=== PATIENT | male | born 1985 ===

== ENCOUNTER 2021-03-12 21:44 | Inpatient (IN) | payer OTHER, SELFPAY ==
--- NOTE | ~2021-03-12 | XR_ITS ---
EXAMINATION: XR PORTABLE CHEST CLINICAL INFORMATION: Cough. COMPARISON: None. TECHNIQUE: AP portable upright view of the chest FINDINGS: Lungs are clear. No consolidation, pneumothorax, or pleural effusion. Cardiac and mediastinal contours are normal. Pulmonary vasculature is unremarkable. Osseous structures are unremarkable. XR/XR chest 1V IMPRESSION: No acute cardiopulmonary findings
--- NOTE | ~2021-03-12 | US_ITS ---
EXAMINATION: US VENOUS ULTRASOUND WITH DOPPLER LOWER EXTREMITY, RIGHT CLINICAL INFORMATION: Right leg pain COMPARISON: None TECHNIQUE: Ultrasound of the deep veins is performed from the hip to the calf with compression sonography and color and pulse Doppler assessment. Spectral analysis with color-flow imaging is performed. FINDINGS: There is normal venous compression and respiratory variation and augmented flow. The visualized common femoral vein, superficial femoral vein, profunda femoral vein, popliteal vein, and the trifurcation region shows no evidence of deep venous thrombosis. There is no significant popliteal fossa cyst. US/US venous duplex LE RT IMPRESSION: No DVT demonstrated in the right lower extremity.
[2021-03-12 21:50] VITALS: BP 135/95; PULSE 130; RESP 22; TEMP 36.1; O2SAT 99; BMI 36.3
--- NOTE | 2021-03-12 22:28 | ECG_ITS ---
Test Reason : TACHY Blood Pressure : / mmHG Vent. Rate : 124 BPM Atrial Rate : 124 BPM P-R Int : 132 ms QRS Dur : 078 ms QT Int : 318 ms P-R-T Axes : 030 047 029 degrees QTc Int : 456 ms Sinus tachycardia Septal infarct , age undetermined Nonspecific ST and T wave abnormality Abnormal ECG When compared with ECG of 06-MAY-2009 16:47, Sinus rhythm has replaced Atrial fibrillation Septal infarct is now Present Nonspecific T wave abnormality now evident in Inferior leads Referred By: Mee Ramirez Electronically Signed By:SOPHY SEPULVEDA MD
[2021-03-12 22:42] LABS: Glucose, Whole Blood 392 mg/dL (60-115)
[2021-03-12] MEDS: Ketorolac Tromethamine 15 MG/ML VIAL IVPUSH (22:50)
[2021-03-12] MEDS: 0.9 % Sodium Chloride 2,000 ML 999 ML IV (22:50)
[2021-03-12] MEDS: Acetaminophen 325 MG TABLET 975 MG PO (22:50)
[2021-03-12] MEDS: ondansetron HCL 4 MG/2 ML VIAL IVPUSH (22:50)
[2021-03-12 22:54] LABS: MANUAL DIFF FLAG NO
--- NOTE | 2021-03-12 22:57 | ED_ITS ---
HPI - General Adult General Chief complaint: Extremity Problem Stated complaint: leg pain Time Seen by Provider: 03/12/21 22:28 Source: patient Mode of arrival: EMS History of Present Illness HPI narrative: 35-year-old male with history of diabetes and bipolar presents via EMS with severe right lower extremity leg cramping that started Tuesday evening, but patient also reports nausea with decreased appetite over the past couple of days but denies any diarrhea, fever, chills, sore throat, cough, abdominal pain. In addition, patient has complaints of polydipsia and polyuria, but denies any falls precipitating his right lower extremity leg pain. Related Data Allergies Allergy/AdvReac Type Severity Reaction Status Date / Time No Known Allergies Allergy Unverified 09/23/20 09:17 [No Known Allergies*] Review of Systems Review of Systems: pertinent positives and negatives as stated in HPI 10 point review of systems is otherwise negative. [facility] Past Medical History Medical History (Updated 03/13/21 @ 00:54 by Mee Ramirez MD) Bipolar 2 disorder Diabetes Social History Social History Advance Directives: No Physical Exam Vital Signs: Vital Signs: Last Vital Signs Temp 97 F 03/12/21 21:50 Pulse 130 H 03/12/21 21:50 Resp 22 H 03/12/21 21:50 BP 135/95 H 03/12/21 21:50 Pulse Ox 99 03/12/21 21:50 Body Mass Index 36.3 VITAL SIGNS: Reviewed. GENERAL: noted fruity breath,Well developed, well nourished, in no acute distress. HEAD: Normocephalic/atraumatic EYES: PERRLA, EOMI NOSE: Nares patent bilateral OROPHARYNX: no oral lesions noted, posterior pharynx clear, dry mucosa NECK: Supple, no adenopathy LUNGS: Normal breath sounds, tachypnea but able to complete full sentences. SpO2<99> CARDIOVASCULAR: Regular rate and rhythm without noted murmurs ABDOMEN: Soft, non-tender, non-distended with bowel sounds. RIGHT LOWER EXTREMITY: No observed deformities, on palpation of calf no noted cords, erythema, induration SKIN: Inspection of the skin reveals no rashes, ulcerations, jaundice, pallor, or petechiae. NEUROLOGIC: Alert and oriented x 4. Strength and sensation to light touch were grossly intact x 4. Course Course Course Narrative: 35-year-old male with history and clinical presentation most concerning for possible DKA/HHS and low suspicion for thrombophlebitis or DVT, but there is a possibility of possible Richardson cyst rupture given patient's presentation. On review of all investigations findings are consistent with significant DKA and patient was started on fluid hydration, insulin drip, and on re-evaluation has noted improvement in right lower extremity discomfort and states that after initial interventions have been started that this is the best that his leg has felt in 3 days . Although there is a noted leukocytosis this is felt to be hemoconcentration as there is no information provided in the history to suggest pulmonary/abdominal / urinary etiologies. Patient remains otherwise hemodynamically stable and this case was discussed with the object oriented developer who is accepting the patient for admission. Medical Decision Making Lab Data Result diagrams: 03/12/21 22:47 03/12/21 22:47 Labs: Lab Results 03/12/21 03/12/21 03/12/21 Range/Units 22:32 22:46 22:46 WBC (4.8-10.8) X10*3/uL RBC (4.60-5.80) X10*6/uL Hgb (14.0-18.0) g/dl Hct (42-52) % MCV (80-98) fL MCH (27.0-33.0) pg MCHC (31.0-36.0) g/dl RDW (11.0-16.0) % Plt Count (160-400) X10*3/uL MPV (9.4-12.4) fL Immature Gran % (Auto) (0.0-0.4) % Neut % (Auto) (45-73) % Lymph % (Auto) (20-40) % [place] % (Auto) (2-11) % Eos % (Auto) (0-4) % Baso % (Auto) (0-2) % Lymph # (Auto) (1.2-4.9) X10*3/uL [place] # (Auto) (0.1-1.2) X10*3/uL Eos # (Auto) (0.0-0.4) X10*3/uL Baso # (Auto) (0.0-0.2) X10*3/uL Abs Immat Gran (auto) (0.00-0.03) X10*3/uL Absolute Neuts (auto) (2.0-8.3) X10*3/uL Absolute Nucleated RBC (0.0-0.012) X10*3/uL Nucleated RBC % (auto) (0.0-0.2) /100WBC Sodium (135-145) mmol/L Potassium (3.3-5.1) mmol/L Chloride (96-108) mmol/L Carbon Dioxide (22-29) mmol/L Anion Gap (12-20) BUN (9-16) mg/dL Creatinine (0.5-1.4) mg/dL Estim Creat Clear Calc Estimated GFR POC Glucose 392 H* (60-115) mg/dL Random Glucose (60-115) mg/dL Lactic Acid 2.5 H* (0.5-2.0) mmol/L Calcium (8.4-10.2) mg/dL Magnesium (1.6-2.6) mg/dL Total Bilirubin (0.0-1.0) mg/dL AST (5-37) U/L ALT (0-40) U/L Alkaline Phosphatase (39-117) U/L Troponin I High Sens 6.1 (<3.5-35.0) ng/L Total Protein (6.5-8.0) g/dL Albumin (3.5-5.0) g/dL Lipase (8-78) U/L COVID-19 (TATO) (Negative) COVID-19 Clin Com 03/12/21 03/12/21 03/12/21 Range/Units 22:47 22:47 23:59 WBC 13.8 H (4.8-10.8) X10*3/uL RBC 6.72 H (4.60-5.80) X10*6/uL Hgb 16.8 (14.0-18.0) g/dl Hct 53.3 H (42-52) % MCV 79.3 L (80-98) fL MCH 25.0 L (27.0-33.0) pg MCHC 31.5 (31.0-36.0) g/dl RDW 14.6 (11.0-16.0) % Plt Count 310 (160-400) X10*3/uL MPV 10.6 (9.4-12.4) fL Immature Gran % (Auto) 0.4 (0.0-0.4) % Neut % (Auto) 70.8 (45-73) % Lymph % (Auto) 17.8 L (20-40) % [place] % (Auto) 10.3 (2-11) % Eos % (Auto) 0.3 (0-4) % Baso % (Auto) 0.4 (0-2) % Lymph # (Auto) 2.5 (1.2-4.9) X10*3/uL [place] # (Auto) 1.4 H (0.1-1.2) X10*3/uL Eos # (Auto) 0.0 (0.0-0.4) X10*3/uL Baso # (Auto) 0.1 (0.0-0.2) X10*3/uL Abs Immat Gran (auto) 0.06 H (0.00-0.03) X10*3/uL Absolute Neuts (auto) 9.7 H (2.0-8.3) X10*3/uL Absolute Nucleated RBC 0.000 (0.0-0.012) X10*3/uL Nucleated RBC % (auto) 0.0 (0.0-0.2) /100WBC Sodium 135 (135-145) mmol/L Potassium 4.6 (3.3-5.1) mmol/L Chloride 105 (96-108) mmol/L Carbon Dioxide 7 L* (22-29) mmol/L Anion Gap 28 H (12-20) BUN 14 (9-16) mg/dL Creatinine 1.73 H (0.5-1.4) mg/dL Estim Creat Clear Calc 84.0 Estimated GFR 46 POC Glucose (60-115) mg/dL Random Glucose 422 H* (60-115) mg/dL Lactic Acid (0.5-2.0) mmol/L Calcium 9.6 (8.4-10.2) mg/dL Magnesium 2.1 (1.6-2.6) mg/dL Total Bilirubin 0.7 (0.0-1.0) mg/dL AST 13 (5-37) U/L ALT 24 (0-40) U/L Alkaline Phosphatase 96 (39-117) U/L Troponin I High Sens (<3.5-35.0) ng/L Total Protein 8.2 H (6.5-8.0) g/dL Albumin 4.8 (3.5-5.0) g/dL Lipase 6 L (8-78) U/L COVID-19 (TATO) Negative (Negative) COVID-19 Clin Com See Note 03/13/21 Range/Units 00:00 WBC (4.8-10.8) X10*3/uL RBC (4.60-5.80) X10*6/uL Hgb (14.0-18.0) g/dl Hct (42-52) % MCV (80-98) fL MCH (27.0-33.0) pg MCHC (31.0-36.0) g/dl RDW (11.0-16.0) % Plt Count (160-400) X10*3/uL MPV (9.4-12.4) fL Immature Gran % (Auto) (0.0-0.4) % Neut % (Auto) (45-73) % Lymph % (Auto) (20-40) % [place] % (Auto) (2-11) % Eos % (Auto) (0-4) % Baso % (Auto) (0-2) % Lymph # (Auto) (1.2-4.9) X10*3/uL [place] # (Auto) (0.1-1.2) X10*3/uL Eos # (Auto) (0.0-0.4) X10*3/uL Baso # (Auto) (0.0-0.2) X10*3/uL Abs Immat Gran (auto) (0.00-0.03) X10*3/uL Absolute Neuts (auto) (2.0-8.3) X10*3/uL Absolute Nucleated RBC (0.0-0.012) X10*3/uL Nucleated RBC % (auto) (0.0-0.2) /100WBC Sodium (135-145) mmol/L Potassium (3.3-5.1) mmol/L Chloride (96-108) mmol/L Carbon Dioxide (22-29) mmol/L Anion Gap (12-20) BUN (9-16) mg/dL Creatinine (0.5-1.4) mg/dL Estim Creat Clear Calc Estimated GFR POC Glucose 377 H* (60-115) mg/dL Random Glucose (60-115) mg/dL Lactic Acid (0.5-2.0) mmol/L Calcium (8.4-10.2) mg/dL Magnesium (1.6-2.6) mg/dL Total Bilirubin (0.0-1.0) mg/dL AST (5-37) U/L ALT (0-40) U/L Alkaline Phosphatase (39-117) U/L Troponin I High Sens (<3.5-35.0) ng/L Total Protein (6.5-8.0) g/dL Albumin (3.5-5.0) g/dL Lipase (8-78) U/L COVID-19 (TATO) (Negative) COVID-19 Clin Com ECG Data Attestation: I personally reviewed and interpreted this ECG as follows: Prior ECG tracings: available for review ( 05/06/2009 currently patient is in sinus tachycardia and comparison EKG in April demonstrates atrial fibrillation) Interpretation: sinus tachycardia, HR -124, no evidence of acute ischemia, SD/ QRS /QTC are within normal limits. Discharge Plan Discharge Clinical Impression: DKA (diabetic ketoacidosis), LAURIE (acute kidney injury), Dehydration Patient Disposition: Admitted As Inpatient
[2021-03-12 23:01] LABS: Basophils Absolute Auto 0.1 X10*3/uL (0.0-0.2); Basophils Percent Auto 0.4 % (0-2); Eosinophils Percent Auto 0.3 % (0-4); Hematocrit 53.3 % (42-52); Hemoglobin 16.8 g/dl (14.0-18.0); Imm Gran Abs Auto 0.06 X10*3/uL (0.00-0.03); Imm Gran Pct Auto 0.4 % (0.0-0.4); Lymphocytes Absolute Auto 2.5 X10*3/uL (1.2-4.9); Lymphocytes Percent Auto 17.8 % (20-40); Mean Corpuscular HGB Conc 31.5 g/dl (31.0-36.0); Mean Corpuscular Volume 79.3 fL (80-98); Mean Platelet Volume 10.6 fL (9.4-12.4); Monocytes Absolute Auto 1.4 X10*3/uL (0.1-1.2); Monocytes Percent Auto 10.3 % (2-11); Neutrophils Absolute Auto 9.7 X10*3/uL (2.0-8.3); Neutrophils Percent Auto 70.8 % (45-73); Platelet Count 310 X10*3/uL (160-400); Red Blood Count 6.72 X10*6/uL (4.60-5.80); Red Cell Distribution Width 14.6 % (11.0-16.0); White Blood Count 13.8 X10*3/uL (4.8-10.8)
[2021-03-12 23:24] LABS: Lactic Acid 2.5 mmol/L (0.5-2.0)
[2021-03-12 23:35] LABS: Alanine Aminotransferase 24 U/L (0-40); Albumin Level 4.8 g/dL (3.5-5.0); Alkaline Phosphatase 96 U/L (39-117); Aspartate Amino Transferase 13 U/L (5-37); Bilirubin Total 0.7 mg/dL (0.0-1.0); Blood Urea Nitrogen 14 mg/dL (9-16); Calcium 9.6 mg/dL (8.4-10.2); Estimated Glomerular Filt Rate 46; Lipase 6 U/L (8-78); Magnesium 2.1 mg/dL (1.6-2.6); Total Protein 8.2 g/dL (6.5-8.0)
[2021-03-12 23:38] LABS: Anion Gap 28 (12-20); Carbon Dioxide 7 mmol/L (22-29); Chloride 105 mmol/L (96-108); Glucose Random 422 mg/dL (60-115); Potassium 4.6 mmol/L (3.3-5.1); Sodium 135 mmol/L (135-145)
[2021-03-12 23:58] LABS: Troponin-I High Sensitivity 6.1 ng/L (<3.5-35.0)
[2021-03-13] VITALS (23 sets, daily range): BP systolic 111–195; BP diastolic 37–108; PULSE 98–123; RESP 8–20; TEMP 36.1–37; O2SAT 95–100; BMI 34.2
[2021-03-13] MEDS: Insulin Regular, Human 100 UNIT/ML 3 ML VIAL 10 UNIT IVPUSH (00:02)
[2021-03-13] MEDS: Insulin Regular/NS 100 UNIT/100 ML PLAST..BAG 10 UNIT IVCONT (00:08)
[2021-03-13 00:15] LABS: Glucose, Whole Blood 377 mg/dL (60-115)
[2021-03-13 00:20] LABS: COVID-19 Test Negative (Negative); IDNOW Serial# 9DD0AD1C
[2021-03-13 00:54] LABS: Reflex Lactate? Lactic Acid Added
--- NOTE | 2021-03-13 00:57 | PM.CCHP ---
History of Present Illness Date of Service: 03/13/21 Chief Complaint: DKA / LAURIE HPI: Patient's history of bipolar disorder, obesity, diabetes type 2 not on insulin, insomnia, hypertension presented to the emergency room with complaints of ongoing right leg pain which has been present for several days but worsened over last 24 hours to the point that he could not take it anymore this morning. He thought that he was having bad charley horses, at the same time he thought he had injured his leg. Due to his insomnia, he has been forgetful and compliant with his diabetic medications. He only started getting nauseous this evening while in the emergency room. During the workup in the ER, he was noted to have tachycardia and tachypnea with heart rate of 130 and respirations of 22, his laboratory workup revealed white count 13.8, hemoglobin of 16 and hematocrit 53, platelets 310. Sodium 135, potassium of 4.6, chloride 105, carbon dioxide 7, anion gap 28, BUN 14, creatinine 1.73 when his baseline is 0.9-1, random glucose 422. COVID negative. Patient was started on IV fluids, was load given a load of insulin followed by insulin drip. Currently he states that he feels much better, he no longer feels the cramps in his legs, denies any other symptoms other done polydipsia and polyuria. ROS: Denies headache, no visual changes, lightheadedness or dizziness, no history of seizures or strokes, no history of eye or ear problems, no sore throat, cough or sputum production, denies shortness of breath, denies chest pain, palpitations, no coronary disease, pulmonary disease, no hemoptysis, denies any melena, hematochezia, liver or kidney problems, no dysuria, hematuria, no leg swelling, no history of DVT or PE. She has no travel and has not been contact with anybody with mobile mumID. All other review of systems negative. Past Medical History: ABOVE Past Surgical History: BILATERAL MENISCUS SURGERY Family history: NONCONTRIBUTORY Social History: Lives at HOME ; Devices: NONE Smoker: NONE Etoh hx: NONE Drug hx: NONE CODE STATUS: FULL CODE Allergies: NO KNOWN DRUG ALLERGIES Home Medications: METFORMIN AND GLYBURIDE (UNKNOWN DOSES) PHYSICAL EXAM: VS: Blood pressure 135/95 heart rate 130, respirations 22, O2 sat 99% on room air, temperature 97? F. ?General: Alert oriented x3 no acute distress. Speaking full sentences. Speech is well articulated, thought process is coherent. Following all commands. ?Skin: Intact, no lesions, edema, erythema, clubbing or cyanosis. No ulcers. ?HEENT: Head is normocephalic, atraumatic, pupils equal round reactive to light accommodation bilaterally. Extraocular movements appear intact. Buccal mucosa is dry, Neck is supple without lymphadenopathy. ?Cardiac: Clears once 2, tachycardic 110 beats per minute, no murmurs, rubs, gallops. ?Pulmonary: Clear to auscultation, no wheezes, rales or rhonchi. ?Abdomen: Protuberant, positive bowel sounds in all 4 quadrants. Soft, nontender, no rebound or guarding. ?Musculoskeletal: Moving all 4 extremities upon request a major joints, there is no crepitus or tenderness. The strength is 5/5 bilaterally and throughout all 4 extremities. There is no leg edema , no calf tenderness , no leg asymmetry. Gait not assessed at this point. ?Neurologic: As above, cranial nerves 2-12 are grossly intact. No focal deficits noted. ?Motor strength as above. ?Vascular: 2+ pulses upper and lower extremities distally. ? SIGNIFICANT LABORATORY DATA: As above REVIEW OF IMAGES: Chest x-ray no acute pathology EKG: Sinus tachycardia, nonspecific changes in the septal leads, age undetermined. No discernible ST elevations or depressions. no comparison ASSESSMENT AND PLAN: 1. DKA type 2 diabetic 2. Acute kidney injury 3. Dehydration 4. Hypophosphatemia 5. Reactive tachypnea and tachycardia 6. Metabolic acidosis due to DKA 7. Lactic acidosis due to DKA there is no evidence or concern for Sepsis 8. Obesity 9. Medical noncompliance Admit to ICU, I's and O's, vital signs, insulin drip, bicarb, phosphorus replacement and potassium replacement, continue with D5 /LR as the current blood sugar is below 250. I will continue the insulin drip until the gap closes completely regardless of the blood sugar. Home medications can be resumed after that. Will recheck chemistries every 4 hours. GI PROPHYLAXIS: IV ppi DVT PROPHYLAXIS: Heparin subQ Critical care time used for critical evaluation of this patient, diagnosis, treatment and coordination of care, review her records and documentation TOTAL CRITICAL CARE TIME 75 MIN . Patient's care was discussed in detail with Dr. Lopez. He is aware of all the above as well as the plan of care for this patient. 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 If so, by whom?: No Do you feel safe in your current relationship?: No Current Relationship Is there a partner from a previous relationship who is making you feel unsafe now?: No Are you made to feel afraid or neglected: No Spiritual Healthcare Practices: NONE Yarsanism Healthcare Practices: NONE Cultural Healthcare Practices: NONE Advance Directives: No Do you have thoughts of harming others: None Do you have a plan to hurt others: No Plan Recently lost weight without trying: Yes How much weight loss: 2-13 pounds Eating poorly because of decreased appetite: Yes Nutrition screen score: 4 Nutrition Risks: Diabetes new onset/Uncontrolled Poor oral hygiene: No Meds Allergies Allergy/AdvReac Type Severity Reaction Status Date / Time No Known Allergies Allergy Unverified 09/23/20 09:17 [No Known Allergies*] Active Medications: Current Medications Generic Name Dose Route Start Last Admin Trade Name Freq PRN Reason Stop Dose Admin Heparin Sodium (Porcine) 5,000 unit 03/13/21 01:00 Heparin Sodium,Porcine 5,000 Unit/Ml Vial SUBCUT Q8H OXANA Lactated Ringer's 2,000 mls @ 999 mls/hr 03/12/21 23:45 Lr IV 03/13/21 01:45 .Q2H1M OXANA Insulin Human Regular 100 unit in 100 mls @ 10 mls/hr 03/12/21 23:45 03/13/21 00:08 Myxredlin IVCONT 10 unit/hr .Q10H OXANA 10 mls/hr Administration Protocol 10 UNIT/HR Lactated Ringer's 1,000 mls @ 200 mls/hr 03/13/21 01:00 Lr IVCONT .Q5H OXANA Pantoprazole Sodium 40 mg 03/13/21 00:54 Pantoprazole Sodium 40 Mg/10 Ml Vial IVPUSH 03/13/21 00:55 DAILY ONE Sodium Bicarbonate 50 meq 03/13/21 00:53 Sodium Bicarbonate 8.4% 50 Meq/50 Ml Vial IVPUSH 03/13/21 00:54 ONCE ONE Home Medications Medication Instructions Recorded Confirmed Last Taken Type bupropion HCl 1 tab PO QAM 03/13/21 03/13/21 03/10/21 History clonazepam 1 tab PO BID PRN 03/13/21 03/13/21 03/10/21 History gabapentin 3 cap PO BID 03/13/21 03/13/21 03/10/21 History oxcarbazepine 300 mg PO DAILY 03/13/21 03/13/21 03/10/21 History oxcarbazepine 900 mg PO BEDTIME 03/13/21 03/13/21 03/10/21 History sertraline [Zoloft] 2 tab PO DAILY 03/13/21 03/13/21 03/10/21 History topiramate [Topamax] 1 tab PO BID 03/13/21 03/13/21 03/10/21 History trazodone 2 tab PO BEDTIME PRN 03/13/21 03/13/21 03/10/21 History Physical Exam Vital Signs: Vital Signs: Last Vital Signs Temp 97 F 03/12/21 21:50 Pulse 130 H 03/12/21 21:50 Resp 22 H 03/12/21 21:50 BP 135/95 H 03/12/21 21:50 Pulse Ox 99 03/12/21 21:50 Body Mass Index 36.3 Results Labs CBC and Chem 7: 03/13/21 05:32 03/13/21 01:15 Labs: Laboratory Results - last 24 hr 03/12/21 03/12/21 03/12/21 22:32 22:46 22:46 MCV MCH MCHC RDW Plt Count MPV Immature Gran % (Auto) Neut % (Auto) Lymph % (Auto) [place] % (Auto) Eos % (Auto) Baso % (Auto) Lymph # (Auto) [place] # (Auto) Eos # (Auto) Baso # (Auto) Abs Immat Gran (auto) Absolute Neuts (auto) Absolute Nucleated RBC Nucleated RBC % (auto) Anion Gap Creatinine Estim Creat Clear Calc Estimated GFR POC Glucose 392 H* Random Glucose Lactic Acid 2.5 H* Calcium Magnesium Total Bilirubin AST ALT Alkaline Phosphatase Troponin I High Sens 6.1 Total Protein Albumin Lipase COVID-19 (TATO) COVID-19 Clin Com 03/12/21 03/12/21 03/12/21 22:47 22:47 23:59 MCV 79.3 L MCH 25.0 L MCHC 31.5 RDW 14.6 Plt Count 310 MPV 10.6 Immature Gran % (Auto) 0.4 Neut % (Auto) 70.8 Lymph % (Auto) 17.8 L [place] % (Auto) 10.3 Eos % (Auto) 0.3 Baso % (Auto) 0.4 Lymph # (Auto) 2.5 [place] # (Auto) 1.4 H Eos # (Auto) 0.0 Baso # (Auto) 0.1 Abs Immat Gran (auto) 0.06 H Absolute Neuts (auto) 9.7 H Absolute Nucleated RBC 0.000 Nucleated RBC % (auto) 0.0 Anion Gap 28 H Creatinine 1.73 H Estim Creat Clear Calc 84.0 Estimated GFR 46 POC Glucose Random Glucose 422 H* Lactic Acid Calcium 9.6 Magnesium 2.1 Total Bilirubin 0.7 AST 13 ALT 24 Alkaline Phosphatase 96 Troponin I High Sens Total Protein 8.2 H Albumin 4.8 Lipase 6 L COVID-19 (TATO) Negative COVID-19 Clin Com See Note 03/13/21 00:00 MCV MCH MCHC RDW Plt Count MPV Immature Gran % (Auto) Neut % (Auto) Lymph % (Auto) [place] % (Auto) Eos % (Auto) Baso % (Auto) Lymph # (Auto) [place] # (Auto) Eos # (Auto) Baso # (Auto) Abs Immat Gran (auto) Absolute Neuts (auto) Absolute Nucleated RBC Nucleated RBC % (auto) Anion Gap Creatinine Estim Creat Clear Calc Estimated GFR POC Glucose 377 H* Random Glucose Lactic Acid Calcium Magnesium Total Bilirubin AST ALT Alkaline Phosphatase Troponin I High Sens Total Protein Albumin Lipase COVID-19 (TATO) COVID-19 Clin Com Imaging Radiologist's Impressions: Impressions Chest X-Ray 03/12/21 23:43 IMPRESSION: No acute cardiopulmonary findings
[2021-03-13 01:01] LABS: Glucose, Whole Blood 233 mg/dL (60-115)
--- NOTE | 2021-03-13 01:19 | PC.NURSE ---
ROBIN Rush at bedside evaluating patient. Preparing to admit to ICU. Insulin drip continues, rate currently at 5 units/hour per protocol. POC Glucose at 1am was 233. Pt's previous POC Glucose was 377. Will continue to monitor for hypoglycemia. Reports the pain in my legs is soooo much better . Pt remains tachycardic 120s on the engine monitor.
--- NOTE | 2021-03-13 01:21 | PC.NURSE ---
Per ROBIN Rush, LR order to be discontinued. Instructed to give D5LR instead. Awaiting orders to infuse medication.
[2021-03-13 01:35] LABS: ~Lactic Acid-LAB USE ONLY 1.7 mmol/L (0.5-2.0)
[2021-03-13 01:49] LABS: Phosphorus 2.3 mg/dL (2.7-4.5)
[2021-03-13 01:51] LABS: Alanine Aminotransferase 22 U/L (0-40); Albumin Level 4.3 g/dL (3.5-5.0); Alkaline Phosphatase 76 U/L (39-117); Anion Gap 21 (12-20); Aspartate Amino Transferase 13 U/L (5-37); Bilirubin Total 0.4 mg/dL (0.0-1.0); Blood Urea Nitrogen 14 mg/dL (9-16); Calcium 8.7 mg/dL (8.4-10.2); Carbon Dioxide 10 mmol/L (22-29); Chloride 112 mmol/L (96-108); Creatinine Clr Calc Pharmacy 115.3; Estimated Glomerular Filt Rate > 60; Glucose Random 207 mg/dL (60-115); Potassium 3.8 mmol/L (3.3-5.1); Sodium 139 mmol/L (135-145); Total Protein 7.3 g/dL (6.5-8.0)
[2021-03-13] MEDS: Heparin Sodium,Porcine 5,000 UNIT/ML VIAL 5000 UNIT SUBCUT ×2 (01:54→10:24)
[2021-03-13] MEDS: Pantoprazole Sodium 40 MG/10 ML VIAL IVPUSH ×2 (01:55→06:33)
[2021-03-13] MEDS: Sodium Bicarbonate 8.4% 50 MEQ/50 ML VIAL IVPUSH (01:55)
[2021-03-13 02:09] LABS: Glucose, Whole Blood 191 mg/dL (60-115)
[2021-03-13] MEDS: Dextrose 5 % and Lactated Ring 1,000 ML 150 ML IVCONT ×2 (02:10→08:42)
--- NOTE | 2021-03-13 02:10 | PC.NURSE ---
Patient's POC Glucose at 02:05am was 191. Per protocol, insulin drip infusion rate is to be unchanged with simultaneous infusion of D5/NS 0.45%. However, verbally instructed by ROBIN Hendrix to infuse D5LR instead of D5/NS 0.45% per the protocol's rate of 150 ml/hour. Insulin infusing at 5 units/hour through 18g IV access in right AC. D5LR infusing at 150 ml/hour through 20g IV access in left AC. Plan to repeat POC Glucose in 1 hour. RN to RN report given to JESSICA Shi on ICU. Preparing for admission to ICU.
[2021-03-13 03:02] LABS: Glucose, Whole Blood 198 mg/dL (60-115)
[2021-03-13 03:54] LABS: Glucose Urine UA 500 MG/DL (NEG); Leukocyte Esterase Urine NEG (NEG); Nitrite Urine NEG (NEG); Specific Gravity - Urine >= 1.030 (1.005-1.025); Urine Blood NEG (NEG); Urine Ketones >=80 MG/DL (NEG); Urine Protein 2+ MG/DL (NEG-TRACE)
[2021-03-13 04:02] LABS: Glucose, Whole Blood 157 mg/dL (60-115)
[2021-03-13 04:06] LABS: Appearance Urine CLEAR; Color Urine YELLOW
[2021-03-13 04:07] LABS: Mucus Urine TRACE /LPF; RBC Urine 0-2 /HPF (0); Squamous Epithelial Cell Urine TRACE /LPF; WBC Urine 0-2 /HPF (0-4)
[2021-03-13 04:08] LABS: Granular Casts Urine 0-2 /LPF
--- NOTE | 2021-03-13 04:51 | PC.NURSE ---
Addendum entered by Jose Guadalupe Araujo RN 03/13/21 06:20: Anion gap down to 19, serum CO2 up to 13 from AM labs - Victor Manuel KELLY made aware - ordered to give 1 amp bicarb now and keep insulin drip going per protocol. Currently running at 3unit/hr. Original Note: Patient admitted to ICU, room 259, for DKA @ approx 0245. Patient reports feeling better from when came into ER, leg cramping better and abd still slightly tender, but tolerable. See medications received in ER in NOV. Patient denies nausea. Patient ambulated from stretcher to bed, steady gait. Patient reports not feeling well since Tuesday and haven't taken his medications since Tuesday, 03/10. Unable to reconcile diabetes medications at this time - plan to verify with pharmacy in AM, Victor Manuel KELLY aware. Patient requesting water, ROBIN confirmed ok to give water - tolerated water without issue. Received patient on insulin drip - 5unit/hr - checking blood sugars Q1H. Blood sugars staying under 200 since admitted (see lab reports for values) - reporting Q1H blood sugars to Victor Manuel KELLY - drip remains unchanged at this time, on D5LR. Labs to be drawn this AM.
[2021-03-13 05:05] LABS: Glucose, Whole Blood 123 mg/dL (60-115)
[2021-03-13 05:56] LABS: Hematocrit 49.5 % (42-52); Hemoglobin 15.7 g/dl (14.0-18.0); Mean Corpuscular HGB Conc 31.7 g/dl (31.0-36.0); Mean Corpuscular Volume 78.7 fL (80-98); Mean Platelet Volume 10.2 fL (9.4-12.4); Platelet Count 249 X10*3/uL (160-400); Red Blood Count 6.29 X10*6/uL (4.60-5.80); Red Cell Distribution Width 14.5 % (11.0-16.0)
[2021-03-13 06:00] LABS: Glucose, Whole Blood 189 mg/dL (60-115)
[2021-03-13 06:14] LABS: Anion Gap 19 (12-20); Blood Urea Nitrogen 12 mg/dL (9-16); Calcium 8.8 mg/dL (8.4-10.2); Carbon Dioxide 13 mmol/L (22-29); Chloride 114 mmol/L (96-108); Creatinine Clr Calc Pharmacy 121.6; Estimated Glomerular Filt Rate > 60; Glucose Fasting 114 mg/dL (60-99); Potassium 3.8 mmol/L (3.3-5.1); Sodium 142 mmol/L (135-145)
[2021-03-13] MEDS: Sodium Bicarbonate 8.4% 50 MEQ/50 ML VIAL 100 MEQ IVPUSH (06:32)
[2021-03-13] MEDS: Sodium,Potassium Phosphates POWD.PACK 2 PACKET PO ×2 (06:33→17:45)
[2021-03-13] MEDS: Potassium Chloride ER 20 MEQ TAB.ER.PRT PO (06:33)
[2021-03-13 06:41] LABS: Magnesium 2.1 mg/dL (1.6-2.6)
[2021-03-13 06:54] LABS: Glucose, Whole Blood 112 mg/dL (60-115)
[2021-03-13 07:58] LABS: Glucose, Whole Blood 119 mg/dL (60-115)
--- NOTE | 2021-03-13 08:00 | PHA.MEDREC ---
Pharmacy Consult ? Medication Reconciliation Pharmacy has called [facility] re metformin and an insulin. The metformin was last filled at a [facility] in 08/2019 and no type of insulin was filled at a [facility] within the last 2 years.
[2021-03-13] MEDS: Potassium Phosphate 30 MMOL in 0.9 % Sodium Chloride 500 ML 85 MMOL IV (08:40)
[2021-03-13] MEDS: Gabapentin 400 MG CAPSULE 1200 MG PO ×2 (08:51→20:40)
[2021-03-13] MEDS: Topiramate 25 MG TABLET PO ×2 (08:52→20:40)
[2021-03-13] MEDS: OXcarbazepine 300 MG TABLET PO (08:52)
[2021-03-13] MEDS: Sertraline HCL 100 MG TABLET 200 MG PO (08:52)
[2021-03-13] MEDS: buPROPion HCL 75 MG TABLET PO (08:52)
[2021-03-13 09:02] LABS: Glucose, Whole Blood 158 mg/dL (60-115)
--- NOTE | 2021-03-13 09:10 | PHA.MEDREC ---
Pharmacy Consult ? Medication Reconciliation [facility] WAS REPORTING BEING ON METFORMIN AND INSULIN; [place] [facility] [place] REPOR[place] BE[place]EN. OFFICE CONFIRMS HE WAS PRESCRIBED METFORMIN AND VICTOZA INJ IN FEBRUARY 2020. PATIENT CONFIRMED WITH RN THAT HE TAKES VICTOZA, HE WAS CONFUSING THAT WITH INSULIN. FORMERLY [facility] BOTH MEDS ON MED REC BASED ON PT AND MD OFFICE REPORT BUT THEY HAVE NOT BEEN FILLED W/ [facility] RECENTLY.
--- NOTE | 2021-03-13 09:13 | PC.NURSE ---
Addendum entered by Radha Leggett RN 03/13/21 18:06: PAIN TO RIGHT LEG [phone], STATES FEELS LIKE A HINA HORSE, TIGHTNESS AND NUMBNESS NOTED. MD NOTIFIED. US ORDERED AND PERFORMED. PRN DILAUDID 1 MG ADMINISTERED X 1 WITH POSITIVE EFFECT. SBP TRENDING UP: 180S, MD NOTIFIED. LISINOPRIL 10 MG PO X 1 ADMINISTERED WITH EFFECT PENDING. PT REMAINS ON INSULIN GTT AND TITRATED PER MD. SEE EMAR. PT ATE 50-75% OF MEALS. BATHED, OOB TO COMMODE AND RECLINER. USED URINAL FOR 680 ML OUTPUT THIS SHIFT. NO BM - COLACE 100 MG ORDERED AND GIVEN. Original Note: PT ONLY WANTED TO TAKE GABAPENTIN 800MG - NOT 1200 MG ORDERED. AWARE.
[2021-03-13 09:20] LABS: Anion Gap 20 (12-20); Blood Urea Nitrogen 11 mg/dL (9-16); Calcium 8.7 mg/dL (8.4-10.2); Carbon Dioxide 15 mmol/L (22-29); Chloride 112 mmol/L (96-108); Creatinine Clr Calc Pharmacy 122.6; Estimated Glomerular Filt Rate > 60; Glucose Fasting 150 mg/dL (60-99); Sodium 143 mmol/L (135-145)
[2021-03-13] MEDS: Docusate Sodium 100 MG CAPSULE PO (10:23)
[2021-03-13 10:58] LABS: Glucose, Whole Blood 255 mg/dL (60-115)
--- NOTE | 2021-03-13 11:29 | MHC.CM.PN ---
Met with pt to review d/c planning needs: Pt resides alone and has [employer] WORK[employer] services 3x weekly. Family assists with transportation needs. Pt instructed to set his cell phone to specified times to assist with compliance with medications and testing. Declines HCP. PCP is Dr. Marshall. Family to transport home
[2021-03-13] MEDS: HYDROmorphone HCl 1 MG/ML SYRINGE IVPUSH (12:46)
[2021-03-13 12:55] LABS: Glucose, Whole Blood 327 mg/dL (60-115)
[2021-03-13] MEDS: Lactated Ringers 1,000 ML 200 ML IVCONT ×2 (12:57→17:46)
--- NOTE | 2021-03-13 12:58 | P.PNCC_ITS ---
Subjective Subjective Date of Service: 03/13/21 Interval History: Mr. Maddox is a 35 yo M with bipolar disorder, was admitted to the ICU early this morning with DKA 2? failure to take his meds. Came to ED last night bec of right leg pain. Started getting nauseous, they checked his labs, found he was in DKA. Admitted to ICU for mx. In ICU been getting fluids and insulin gtt. Last Hb down by 1 point 2? volume resusc. Last chems at 0830 showed gluc 150, Na 143, K 4.0, bicarb up to 15, BUN/creat down to 11/1.15 (baseline 10/0.9; was 14/1.7 last nite). Getting D5LR at 150cc/hr and insulin gtt @ 2u/hr now, along with Kphos infusion. c/o severe right leg pain, starting in the right popliteal fossa, and radiating down towards the ankle. Well appearing, thoughroughly nontoxic, breathing easy on room air. See vital signs below. Abdomen benign, entire right lower extrem looks and feels normal, from the groin to the ankle. No swelling, no tenseness, no tenderness. IMPRESSION: 1. Bipolar disorder 2. DKA. Usual management 3. Rt. leg pain. Richardson?s cyst is a possibility. Doubt DVT. Stat duplex US. Pain control. 4. LAURIE. 2? hypovolemia. Resolving. Time: 44634. Critical Care Time (minutes): 0 Physical Exam Vital Signs: Vital Signs: Last Vital Signs Temp 97.0 F 03/13/21 12:00 Pulse 123 H 03/13/21 12:00 Resp 19 03/13/21 12:46 BP 158/98 H 03/13/21 12:00 Pulse Ox 96 03/13/21 12:00 Body Mass Index 34.2 Objective Data Labs CBC & Chem 7: 03/13/21 05:32 03/13/21 08:39 Labs: Laboratory Results - last 24 hr 03/12/21 03/12/21 03/12/21 22:32 22:46 22:46 WBC RBC Hgb Hct MCV MCH MCHC RDW Plt Count MPV Immature Gran % (Auto) Neut % (Auto) Lymph % (Auto) [place] % (Auto) Eos % (Auto) Baso % (Auto) Lymph # (Auto) [place] # (Auto) Eos # (Auto) Baso # (Auto) Abs Immat Gran (auto) Absolute Neuts (auto) Absolute Nucleated RBC Nucleated RBC % (auto) Sodium Potassium Chloride Carbon Dioxide Anion Gap BUN Creatinine Estim Creat Clear Calc Estimated GFR POC Glucose 392 H* Random Glucose Fasting Glucose Lactic Acid 2.5 H* Lactic Acid Fup @ 2Hr Calcium Phosphorus Magnesium Total Bilirubin AST ALT Alkaline Phosphatase Troponin I High Sens 6.1 Total Protein Albumin Lipase Urine Color Urine Appearance Urine pH Ur Specific [place] Urine Protein Urine Glucose (UA) Urine Ketones Urine Blood Urine Nitrite Ur Leukocyte Esterase Urine RBC Urine WBC Ur Squamous Epith Cells Urine Bacteria Hyaline Casts Granular Casts Urine Mucus COVID-19 (TATO) COVID-[employer] 03/12/21 03/12/21 03/12/21 22:47 22:47 23:59 WBC 13.8 H RBC 6.72 H Hgb 16.8 Hct 53.3 H MCV 79.3 L MCH 25.0 L MCHC 31.5 RDW 14.6 Plt Count 310 MPV 10.6 Immature Gran % (Auto) 0.4 Neut % (Auto) 70.8 Lymph % (Auto) 17.8 L [place] % (Auto) 10.3 Eos % (Auto) 0.3 Baso % (Auto) 0.4 Lymph # (Auto) 2.5 [place] # (Auto) 1.4 H Eos # (Auto) 0.0 Baso # (Auto) 0.1 Abs Immat Gran (auto) 0.06 H Absolute Neuts (auto) 9.7 H Absolute Nucleated RBC 0.000 Nucleated RBC % (auto) 0.0 Sodium 135 Potassium 4.6 Chloride 105 Carbon Dioxide 7 L* Anion Gap 28 H BUN 14 Creatinine 1.73 H Estim Creat Clear Calc 84.0 Estimated GFR 46 POC Glucose Random Glucose 422 H* Fasting Glucose Lactic Acid Lactic Acid Fup @ 2Hr Calcium 9.6 Phosphorus Magnesium 2.1 Total Bilirubin 0.7 AST 13 ALT 24 Alkaline Phosphatase 96 Troponin I High Sens Total Protein 8.2 H Albumin 4.8 Lipase 6 L Urine Color Urine Appearance Urine pH Ur Specific [place] Urine Protein Urine Glucose (UA) Urine Ketones Urine Blood Urine Nitrite Ur Leukocyte Esterase Urine RBC Urine WBC Ur Squamous Epith Cells Urine Bacteria Hyaline Casts Granular Casts Urine Mucus COVID-19 (TATO) Negative COVID-[employer]qom Com See Note 03/13/21 03/13/21 03/13/21 00:00 00:57 01:15 WBC RBC Hgb Hct MCV MCH MCHC RDW Plt Count MPV Immature Gran % (Auto) Neut % (Auto) Lymph % (Auto) [place] % (Auto) Eos % (Auto) Baso % (Auto) Lymph # (Auto) [place] # (Auto) Eos # (Auto) Baso # (Auto) Abs Immat Gran (auto) Absolute Neuts (auto) Absolute Nucleated RBC Nucleated RBC % (auto) Sodium 139 Potassium 3.8 Chloride 112 H Carbon Dioxide 10 L* D Anion Gap 21 H BUN 14 Creatinine 1.26 Estim Creat Clear Calc 115.3 Estimated GFR > 60 POC Glucose 377 H* 233 H Random Glucose 207 H D Fasting Glucose Lactic Acid Lactic Acid Fup @ 2Hr Calcium 8.7 D Phosphorus Magnesium Total Bilirubin 0.4 AST 13 ALT 22 Alkaline Phosphatase 76 D Troponin I High Sens Total Protein 7.3 Albumin 4.3 Lipase Urine Color Urine Appearance Urine pH Ur Specific [place] Urine Protein Urine Glucose (UA) Urine Ketones Urine Blood Urine Nitrite Ur Leukocyte Esterase Urine RBC Urine WBC Ur Squamous Epith Cells Urine Bacteria Hyaline Casts Granular Casts Urine Mucus COVID-19 (TATO) COVID-[employer] 03/13/21 03/13/21 03/13/21 01:15 01:15 02:05 WBC RBC Hgb Hct MCV MCH MCHC RDW Plt Count MPV Immature Gran % (Auto) Neut % (Auto) Lymph % (Auto) [place] % (Auto) Eos % (Auto) Baso % (Auto) Lymph # (Auto) [place] # (Auto) Eos # (Auto) Baso # (Auto) Abs Immat Gran (auto) Absolute Neuts (auto) Absolute Nucleated RBC Nucleated RBC % (auto) Sodium Potassium Chloride Carbon Dioxide Anion Gap BUN Creatinine Estim Creat Clear Calc Estimated GFR POC Glucose 191 H Random Glucose Fasting Glucose Lactic Acid Lactic Acid Fup @ 2Hr 1.7 Calcium Phosphorus 2.3 L Magnesium 2.0 Total Bilirubin AST ALT Alkaline Phosphatase Troponin I High Sens Total Protein Albumin Lipase Urine Color Urine Appearance Urine pH Ur Specific [place] Urine Protein Urine Glucose (UA) Urine Ketones Urine Blood Urine Nitrite Ur Leukocyte Esterase Urine RBC Urine WBC Ur Squamous Epith Cells Urine Bacteria Hyaline Casts Granular Casts Urine Mucus COVID-19 (TATO) COVID-19 [employer] 07/11/0203/13/21 03/13/21 02:59 03:41 03:57 WBC RBC Hgb Hct MCV MCH MCHC RDW Plt Count MPV Immature Gran % (Auto) Neut % (Auto) Lymph % (Auto) [place] % (Auto) Eos % (Auto) Baso % (Auto) Lymph # (Auto) [place] # (Auto) Eos # (Auto) Baso # (Auto) Abs Immat Gran (auto) Absolute Neuts (auto) Absolute Nucleated RBC Nucleated RBC % (auto) Sodium Potassium Chloride Carbon Dioxide Anion Gap BUN Creatinine Estim Creat Clear Calc Estimated GFR POC Glucose 198 H 157 H Random Glucose Fasting Glucose Lactic Acid Lactic Acid Fup @ 2Hr Calcium Phosphorus Magnesium Total Bilirubin AST ALT Alkaline Phosphatase Troponin I High Sens Total Protein Albumin Lipase Urine Color YELLOW Urine Appearance CLEAR Urine pH 6.0 Ur Specific [place] >= 1.030 H Urine Protein 2+ H Urine Glucose (UA) 500 H Urine Ketones >=80 Urine Blood NEG Urine Nitrite NEG Ur Leukocyte Esterase NEG Urine RBC 0-2 Urine WBC 0-2 Ur Squamous Epith Cells TRACE Urine Bacteria NONE Hyaline Casts 5-9 Granular Casts 0-2 Urine Mucus TRACE COVID-19 (TATO) COVID-19 Clin Com 03/13/21 03/13/21 03/13/21 05:02 05:32 05:32 WBC 12.0 H RBC 6.29 H Hgb 15.7 Hct 49.5 MCV 78.7 L MCH 25.0 L MCHC 31.7 RDW 14.5 Plt Count 249 MPV 10.2 Immature Gran % (Auto) Neut % (Auto) Lymph % (Auto) [place] % (Auto) Eos % (Auto) Baso % (Auto) Lymph # (Auto) [place] # (Auto) Eos # (Auto) Baso # (Auto) Abs Immat Gran (auto) Absolute Neuts (auto) Absolute Nucleated RBC 0.000 Nucleated RBC % (auto) 0.0 Sodium 142 Potassium 3.8 Chloride 114 H Carbon Dioxide 13 L Anion Gap 19 BUN 12 Creatinine 1.16 Estim Creat Clear Calc 121.6 Estimated GFR > 60 POC Glucose 123 H Random Glucose Fasting Glucose 114 H Lactic Acid Lactic Acid Fup @ 2Hr Calcium 8.8 Phosphorus 2.0 L Magnesium 2.1 Total Bilirubin AST ALT Alkaline Phosphatase Troponin I High Sens Total Protein Albumin Lipase Urine Color Urine Appearance Urine pH Ur Specific [place] Urine Protein Urine Glucose (UA) Urine Ketones Urine Blood Urine Nitrite Ur Leukocyte Esterase Urine RBC Urine WBC Ur Squamous Epith Cells Urine Bacteria Hyaline Casts Granular Casts Urine Mucus COVID-19 (TATO) COVID-19 [employer] Com 03/13/21 03/13/21 03/13/21 05:56 06:50 07:55 WBC RBC Hgb Hct MCV MCH MCHC RDW Plt Count MPV Immature Gran % (Auto) Neut % (Auto) Lymph % (Auto) [place] % (Auto) Eos % (Auto) Baso % (Auto) Lymph # (Auto) [place] # (Auto) Eos # (Auto) Baso # (Auto) Abs Immat Gran (auto) Absolute Neuts (auto) Absolute Nucleated RBC Nucleated RBC % (auto) Sodium Potassium Chloride Carbon Dioxide Anion Gap BUN Creatinine Estim Creat Clear Calc Estimated GFR POC Glucose 189 H 112 119 H Random Glucose Fasting Glucose Lactic Acid Lactic Acid Fup @ 2Hr Calcium Phosphorus Magnesium Total Bilirubin AST ALT Alkaline Phosphatase Troponin I High Sens Total Protein Albumin Lipase Urine Color Urine Appearance Urine pH Ur Specific [place] Urine Protein Urine Glucose (UA) Urine Ketones Urine Blood Urine Nitrite Ur Leukocyte Esterase Urine RBC Urine WBC Ur Squamous Epith Cells Urine Bacteria Hyaline Casts Granular Casts Urine Mucus COVID-19 (TATO) COVID-19 [employer] Com 03/13/21 03/13/21 03/13/21 08:39 08:58 10:54 WBC RBC Hgb Hct MCV MCH MCHC RDW Plt Count MPV Immature Gran % (Auto) Neut % (Auto) Lymph % (Auto) [place] % (Auto) Eos % (Auto) Baso % (Auto) Lymph # (Auto) [place] # (Auto) Eos # (Auto) Baso # (Auto) Abs Immat Gran (auto) Absolute Neuts (auto) Absolute Nucleated RBC Nucleated RBC % (auto) Sodium 143 Potassium 4.0 Chloride 112 H Carbon Dioxide 15 L Anion Gap 20 BUN 11 Creatinine 1.15 Estim Creat Clear Calc 122.6 Estimated GFR > 60 POC Glucose 158 H 255 H Random Glucose Fasting Glucose 150 H Lactic Acid Lactic Acid Fup @ 2Hr Calcium 8.7 Phosphorus Magnesium Total Bilirubin AST ALT Alkaline Phosphatase Troponin I High Sens Total Protein Albumin Lipase Urine Color Urine Appearance Urine pH Ur Specific [place] Urine Protein Urine Glucose (UA) Urine Ketones Urine Blood Urine Nitrite Ur Leukocyte Esterase Urine RBC Urine WBC Ur Squamous Epith Cells Urine Bacteria Hyaline Casts Granular Casts Urine Mucus COVID-19 (TATO) COVID-19 Clin Com 03/13/21 12:51 WBC RBC Hgb Hct MCV MCH MCHC RDW Plt Count MPV Immature Gran % (Auto) Neut % (Auto) Lymph % (Auto) [place] % (Auto) Eos % (Auto) Baso % (Auto) Lymph # (Auto) [place] # (Auto) Eos # (Auto) Baso # (Auto) Abs Immat Gran (auto) Absolute Neuts (auto) Absolute Nucleated RBC Nucleated RBC % (auto) Sodium Potassium Chloride Carbon Dioxide Anion Gap BUN Creatinine Estim Creat Clear Calc Estimated GFR POC Glucose 327 H Random Glucose Fasting Glucose Lactic Acid Lactic Acid Fup @ 2Hr Calcium Phosphorus Magnesium Total Bilirubin AST ALT Alkaline Phosphatase Troponin I High Sens Total Protein Albumin Lipase Urine Color Urine Appearance Urine pH Ur Specific [place] Urine Protein Urine Glucose (UA) Urine Ketones Urine Blood Urine Nitrite Ur Leukocyte Esterase Urine RBC Urine WBC Ur Squamous Epith Cells Urine Bacteria Hyaline Casts Granular Casts Urine Mucus COVID-19 (TATO) COVID-19 Clin Com Quality Stroke Does the patient have a stroke diagnosis?: No VTE Prior VTE?: No VTE Risk Level:: Medical - moderate - high VTE Device Contraindication: N/A - Device Ordered VTE Drug Contraindication: N/A - Med Ordered
[2021-03-13 15:05] LABS: Glucose, Whole Blood 273 mg/dL (60-115)
[2021-03-13] MEDS: lisinopriL 10 MG TABLET PO (16:29)
[2021-03-13 17:02] LABS: Glucose, Whole Blood 254 mg/dL (60-115)
[2021-03-13 17:11] LABS: Anion Gap 17 (12-20); Blood Urea Nitrogen 9 mg/dL (9-16); Calcium 8.5 mg/dL (8.4-10.2); Carbon Dioxide 16 mmol/L (22-29); Chloride 112 mmol/L (96-108); Creatinine Clr Calc Pharmacy 136.9; Estimated Glomerular Filt Rate > 60; Glucose Random 236 mg/dL (60-115); Magnesium 1.9 mg/dL (1.6-2.6); Phosphorus 2.4 mg/dL (2.7-4.5); Potassium 3.8 mmol/L (3.3-5.1); Sodium 141 mmol/L (135-145)
[2021-03-13] MEDS: Insulin Regular/NS 100 UNIT/100 ML PLAST..BAG IVCONT (17:49)
[2021-03-13 19:10] LABS: Glucose, Whole Blood 257 mg/dL (60-115)
[2021-03-13] MEDS: Insulin Regular, Human 100 UNIT/ML 3 ML VIAL IVPUSH (19:31)
[2021-03-13] MEDS: Insulin Glargine,Hum.rec.anlog 100 UNIT/ML 10 ML VIAL 10 UNIT SUBCUT (19:31)
[2021-03-13] MEDS: OXcarbazepine 300 MG TABLET 900 MG PO (20:40)
--- NOTE | 2021-03-13 21:55 | PC.NURSE ---
Insulin gtt and IVF turned off at 1930 per PA- 5 units IV insulin and 10 units SQ lantus given x1. Pt A&Ox4. NSR on tele. VSS. OOB to chair without difficulty. Skin intact. To be transferred to [facility]- report given to [facility] RN. Pt aware of plan of care and offers no complaints at this time.
[2021-03-13 22:44] LABS: Glucose, Whole Blood 281 mg/dL (60-115)
--- NOTE | 2021-03-13 22:59 | PC.NURSE ---
Addendum entered by Shiela Oliva RN 03/13/21 23:15: give 6 units sliding scale Original Note: Assumed care of patient at approximately 2245. alert and oriented x4, very pleasant. no c/o pain at this time. POC taken upon arrival to unit 281. notified, awaiting new orders.
[2021-03-13] MEDS: Insulin Lispro 100 UNIT/ML 3 ML VIAL SUBCUT (23:13)
[2021-03-14 03:07] VITALS: BP 152/88; PULSE 94; RESP 18; TEMP 36.3; O2SAT 98
[2021-03-14] MEDS: HYDROmorphone HCl 0.5 MG/0.5 ML SYRINGE IVPUSH (03:33)
--- NOTE | 2021-03-14 03:52 | PC.NURSE ---
pt c/o 03/21 pain in right leg. MD notified, 0.5mg IVP diluaded order one time dose. Will continue to reassess pain
[2021-03-14 05:46] VITALS: BMI 35.3
[2021-03-14 05:48] VITALS: BMI 35.3
[2021-03-14 07:20] LABS: Glucose, Whole Blood 334 mg/dL (60-115)
[2021-03-14 07:21] LABS: Hemoglobin A1c % > 14.0 %
[2021-03-14 07:23] VITALS: BP 158/73; PULSE 102; RESP 20; TEMP 36.5; O2SAT 97
[2021-03-14] MEDS: Sertraline HCL 100 MG TABLET 200 MG PO (07:40)
[2021-03-14] MEDS: buPROPion HCL 75 MG TABLET PO (07:40)
[2021-03-14] MEDS: Docusate Sodium 100 MG CAPSULE PO (07:40)
[2021-03-14] MEDS: Topiramate 25 MG TABLET PO ×2 (07:41→20:08)
[2021-03-14] MEDS: OXcarbazepine 300 MG TABLET PO (07:41)
[2021-03-14] MEDS: Insulin Lispro 100 UNIT/ML 3 ML VIAL SUBCUT ×4 (07:41→20:07)
[2021-03-14] MEDS: Insulin Glargine,Hum.rec.anlog 100 UNIT/ML 10 ML VIAL 10 UNIT SUBCUT ×2 (07:43→20:07)
[2021-03-14 08:06] LABS: Hemoglobin 14.9 g/dl (14.0-18.0); Mean Corpuscular HGB Conc 32.4 g/dl (31.0-36.0); Mean Corpuscular Hemoglobin 25.2 pg (27.0-33.0); Mean Corpuscular Volume 77.8 fL (80-98); Mean Platelet Volume 10.5 fL (9.4-12.4); Platelet Count 229 X10*3/uL (160-400); Red Blood Count 5.91 X10*6/uL (4.60-5.80); Red Cell Distribution Width 14.1 % (11.0-16.0); White Blood Count 8.6 X10*3/uL (4.8-10.8)
[2021-03-14 08:29] LABS: Anion Gap 22 (12-20); Blood Urea Nitrogen 6 mg/dL (9-16); Calcium 9.1 mg/dL (8.4-10.2); Carbon Dioxide 17 mmol/L (22-29); Chloride 106 mmol/L (96-108); Creatinine Clr Calc Pharmacy 130.3; Estimated Glomerular Filt Rate > 60; Glucose Random 354 mg/dL (60-115); Sodium 141 mmol/L (135-145)
--- NOTE | 2021-03-14 10:49 | P.DS_ITS ---
DS: Providers Provider Date of admission: 03/13/21 00:55 Primary care physician: Unknown Physician DS: Diagnosis Discharge Diagnosis (1) DKA (diabetic ketoacidosis): Status: Acute (2) LAURIE (acute kidney injury): Status: Acute (3) Bipolar 2 disorder: Status: Acute DS: Medications Discharge Medications Home Medications: Home Medications Medication Instructions Recorded Confirmed bupropion HCl 1 tab PO QAM 03/13/21 03/13/21 clonazepam 1 tab PO BID PRN 03/13/21 03/13/21 gabapentin 3 cap PO BID 03/13/21 03/13/21 liraglutide [Victoza 2-Francisco Javier] 1.2 mg SUBCUT DAILY 03/13/21 03/13/21 metformin 500 mg PO BID 03/13/21 03/13/21 oxcarbazepine 300 mg PO DAILY 03/13/21 03/13/21 oxcarbazepine 900 mg PO BEDTIME 03/13/21 03/13/21 sertraline [Zoloft] 2 tab PO DAILY 03/13/21 03/13/21 topiramate [Topamax] 1 tab PO BID 03/13/21 03/13/21 trazodone 2 tab PO BEDTIME PRN 03/13/21 03/13/21 DS: Summary Time Spent with Patient Time attestation: Total time spent providing and/or coordinating discharge services: Physical Exam Vital Signs: Vital Signs: Last Vital Signs Temp 97.7 F 03/14/21 07:23 Pulse 102 H 03/14/21 07:23 Resp 20 03/14/21 07:23 BP 158/73 H 03/14/21 07:23 Pulse Ox 97 03/14/21 07:23 Body Mass Index 35.3 Const: Nutritional Appearance: well nourished Orientation/consciousness: patient oriented x3 HENMT: Head: Yes normocephalic and Yes atraumatic Eyes: Sclerae: sclerae normal Chest: Chest palpation & inspection: normal inspection of the chest Resp: Effort & Inspection: normal respiratory effort and no respiratory distress Auscultation: clear to auscultation bilaterally Cardio: Rate: regular rate Rhythm: regular rhythm GI: Palpation (GI): Soft to palpation and nontender Neuro: General: patient oriented x3 Cranial nerves: Yes CN's II-XII intact bilaterally and Yes Bilaterally intact EOM present DS: Data Data Completed and Pending Labs on day of discharge: Laboratory Results - last 24 hr 03/13/21 03/13/21 03/13/21 10:54 12:51 14:59 WBC RBC Hgb Hct MCV MCH MCHC RDW Plt Count MPV Absolute Nucleated RBC Nucleated RBC % (auto) Sodium Potassium Chloride Carbon Dioxide Anion Gap BUN Creatinine Estim Creat Clear Calc Estimated GFR POC Glucose 255 H 327 H 273 H Random Glucose Estimat Average Glucose Hemoglobin A1c % Calcium Phosphorus Magnesium 03/13/21 03/13/21 03/13/21 16:30 16:55 19:03 WBC RBC Hgb Hct MCV MCH MCHC RDW Plt Count MPV Absolute Nucleated RBC Nucleated RBC % (auto) Sodium 141 Potassium 3.8 Chloride 112 H Carbon Dioxide 16 L Anion Gap 17 BUN 9 Creatinine 1.03 Estim Creat Clear Calc 136.9 Estimated GFR > 60 POC Glucose 254 H 257 H Random Glucose 236 H Estimat Average Glucose Hemoglobin A1c % Calcium 8.5 Phosphorus 2.4 L Magnesium 1.9 03/13/21 03/14/21 03/14/21 22:40 05:39 07:08 WBC RBC Hgb Hct MCV MCH MCHC RDW Plt Count MPV Absolute Nucleated RBC Nucleated RBC % (auto) Sodium Potassium Chloride Carbon Dioxide Anion Gap BUN Creatinine Estim Creat Clear Calc Estimated GFR POC Glucose 281 H 334 H Random Glucose Estimat Average Glucose TNP Hemoglobin A1c % > 14.0 Calcium Phosphorus Magnesium 03/14/21 03/14/21 07:56 07:56 WBC 8.6 RBC 5.91 H Hgb 14.9 Hct 46.0 MCV 77.8 L MCH 25.2 L MCHC 32.4 RDW 14.1 Plt Count 229 MPV 10.5 Absolute Nucleated RBC 0.000 Nucleated RBC % (auto) 0.0 Sodium 141 Potassium 4.0 Chloride 106 Carbon Dioxide 17 L Anion Gap 22 H BUN 6 L Creatinine 1.10 Estim Creat Clear Calc 130.3 Estimated GFR > 60 POC Glucose Random Glucose 354 H* Estimat Average Glucose Hemoglobin A1c % Calcium 9.1 D Phosphorus Magnesium Preliminary micro results at discharge 03/12/21 22:46 Blood Culture - Preliminary Blood - Venous No growth after 24 hours. 03/12/21 22:46 Blood Culture - Preliminary Blood - Venous No growth after 24 hours. Discharge Plan Discharge Patient Disposition: Home, Self-Care Discharge Diagnosis: DKA Referrals: Chun Trejo MD [Physician] - 1 Week Jamin Marshall MD [Physician] - 1 Week Discharge Medications: Continued clonazepam 0.5 mg tablet 1 tab PO BID PRN (Reason: Sleep) RF: 0 gabapentin 400 mg capsule 3 cap PO BID RF: 0 sertraline [Zoloft] 100 mg tablet 2 tab PO DAILY RF: 0 topiramate [Topamax] 25 mg tablet 1 tab PO BID RF: 0 trazodone 100 mg tablet 2 tab PO BEDTIME PRN (Reason: Sleep) RF: 0 bupropion HCl 75 mg tablet 1 tab PO QAM RF: 0 oxcarbazepine 300 mg Tablet 300 mg PO DAILY RF: 0 oxcarbazepine 600 mg Tablet 900 mg PO BEDTIME RF: 0 Victoza 2-Francisco Javier 0.6 mg/0.1 mL (18 mg/3 mL) Pen Injector 1.2 mg SUBCUT DAILY 30 Days Qty: 6 RF: 0 Changed metformin 500 mg Tablet 1,000 mg PO BID 30 Days Qty: 120 RF: 0 Activity on Discharge: As tolerated Stand Alone Forms: Patient Portal Discharge page Care Plan Goals: see below Health Concerns: DKA/uncontrolled diabetes Plan of Treatment: Resume previous diabetic medications. 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
--- NOTE | 2021-03-14 11:08 | P.PNIM_ITS ---
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 has not been taking his diabetic medication reporting right leg pain Review of Systems Review of Systems: Yes all other systems are reviewed and are negative Constitutional Constitutional: Denies chills and Denies fever(s) Cardiovascular Cardiovascular: Denies chest pain Respiratory Respiratory: Denies cough Gastrointestinal Gastrointestinal: Denies abdominal pain Physical Exam Vital Signs: Vital Signs: Last Vital Signs Temp 97.7 F 03/14/21 07:23 Pulse 102 H 03/14/21 07:23 Resp 20 03/14/21 07:23 BP 158/73 H 03/14/21 07:23 Pulse Ox 97 03/14/21 07:23 Body Mass Index 35.3 Const: Nutritional Appearance: well nourished Orientation/consciousness: patient oriented x3 HENMT: Head: Yes normocephalic and Yes atraumatic Eyes: Sclerae: sclerae normal Chest: Chest palpation & inspection: normal inspection of the chest Resp: Effort & Inspection: normal respiratory effort and no respiratory distress Cardio: Rate: regular rate Rhythm: regular rhythm GI: Palpation (GI): Soft to palpation and nontender Neuro: General: patient oriented x3 Cranial nerves: Yes CN's II-XII intact bilaterally and Yes Bilaterally intact EOM present Extrem: Other: right leg no bruising or signs of trauma, no swelling or erythema Objective Data Current Medications Generic Name Dose Route Start Last Admin Trade Name Kassandra PRN Reason Stop Dose Admin Acetaminophen 650 mg 03/14/21 10:55 Acetaminophen 325 Mg Tablet PO Q6H PRN Pain, Mild (Pain Scale 1-3) Bupropion HCl 75 mg 03/13/21 09:00 03/14/21 07:40 Bupropion Hcl 75 Mg Tablet PO 75 mg DAILY OXANA Administration Clonazepam 0.5 mg 03/13/21 03:57 Clonazepam 0.5 Mg Tablet PO BID PRN Sleep Docusate Sodium 100 mg 03/13/21 10:00 03/14/21 07:40 Docusate Sodium 100 Mg Capsule PO 100 mg BID OXANA Administration Gabapentin 1,200 mg 03/13/21 09:00 03/14/21 07:41 Gabapentin 400 Mg Capsule PO Not Given BID [facility] Lactated Ringer's 1,000 mls @ 100 mls/hr 03/14/21 11:00 Lr IVCONT .Q10H [facility] Insulin Glargine 10 unit 03/13/21 19:30 03/14/21 07:43 Insulin Glargine,Hum.Rec.Anlog 100 Unit/Ml 10 Ml Vial SUBCUT 10 unit Q12H OXANA Administration Insulin Human Lispro 0 unit 03/14/21 07:30 03/14/21 07:41 Insulin Lispro 100 Unit/Ml 3 Ml Vial SUBCUT 8 unit QIDACHS [facility] Administration Protocol Lisinopril 5 mg 03/14/21 20:00 Lisinopril 5 Mg Tablet PO DAILY [facility] Protocol Metformin HCl 1,000 mg 03/14/21 17:00 Metformin Hcl 1,000 Mg Tablet PO BIDWM OXANA Oxcarbazepine 300 mg 03/13/21 09:00 03/14/21 07:41 Oxcarbazepine 300 Mg Tablet PO 300 mg DAILY OXANA Administration Oxcarbazepine 900 mg 03/13/21 21:00 03/13/21 20:40 Oxcarbazepine 300 Mg Tablet PO 900 mg BEDTIME OXANA Administration Sertraline HCl 200 mg 03/13/21 09:00 03/14/21 07:40 Sertraline Hcl 100 Mg Tablet PO 200 mg DAILY OXANA Administration Topiramate 25 mg 03/13/21 09:00 03/14/21 07:41 Topiramate 25 Mg Tablet PO 25 mg BID OXANA Administration Trazodone HCl 200 mg 03/13/21 03:57 Trazodone Hcl 100 Mg Tablet PO BEDTIME PRN Sleep Labs CBC & Chem 7: 03/14/21 07:56 03/14/21 07:56 Labs: Laboratory Results - last 24 hr 03/13/21 03/13/21 03/13/21 12:51 14:59 16:30 WBC RBC Hgb Hct MCV MCH MCHC RDW Plt Count MPV Absolute Nucleated RBC Nucleated RBC % (auto) Sodium 141 Potassium 3.8 Chloride 112 H Carbon Dioxide 16 L Anion Gap 17 BUN 9 Creatinine 1.03 Estim Creat Clear Calc 136.9 Estimated GFR > 60 POC Glucose 327 H 273 H Random Glucose 236 H Estimat Average Glucose Hemoglobin A1c % Calcium 8.5 Phosphorus 2.4 L Magnesium 1.9 03/13/21 03/13/21 03/13/21 16:55 19:03 22:40 WBC RBC Hgb Hct MCV MCH MCHC RDW Plt Count MPV Absolute Nucleated RBC Nucleated RBC % (auto) Sodium Potassium Chloride Carbon Dioxide Anion Gap BUN Creatinine Estim Creat Clear Calc Estimated GFR POC Glucose 254 H 257 H 281 H Random Glucose Estimat Average Glucose Hemoglobin A1c % Calcium Phosphorus Magnesium 03/14/21 03/14/21 03/14/21 05:39 07:08 07:56 WBC 8.6 RBC 5.91 H Hgb 14.9 Hct 46.0 MCV 77.8 L MCH 25.2 L MCHC 32.4 RDW 14.1 Plt Count 229 MPV 10.5 Absolute Nucleated RBC 0.000 Nucleated RBC % (auto) 0.0 Sodium Potassium Chloride Carbon Dioxide Anion Gap BUN Creatinine Estim Creat Clear Calc Estimated GFR POC Glucose 334 H Random Glucose Estimat Average Glucose TNP Hemoglobin A1c % > 14.0 Calcium Phosphorus Magnesium 03/14/21 07:56 WBC RBC Hgb Hct MCV MCH MCHC RDW Plt Count MPV Absolute Nucleated RBC Nucleated RBC % (auto) Sodium 141 Potassium 4.0 Chloride 106 Carbon Dioxide 17 L Anion Gap 22 H BUN 6 L Creatinine 1.10 Estim Creat Clear Calc 130.3 Estimated GFR > 60 POC Glucose Random Glucose 354 H* Estimat Average Glucose Hemoglobin A1c % Calcium 9.1 D Phosphorus Magnesium Microbiology Microbiology Results: Microbiology 03/12/21 22:46 Blood Culture - Preliminary Blood - Venous No growth after 24 hours. 03/12/21 22:46 Blood Culture - Preliminary Blood - Venous No growth after 24 hours. Quality Stroke Does the patient have a stroke diagnosis?: No VTE Prior VTE?: No VTE Risk Level:: Medical - moderate - high VTE Device Contraindication: N/A - Device Ordered VTE Drug Contraindication: N/A - Med Ordered Assessment and Plan (1) DKA (diabetic ketoacidosis): Status: Acute (2) LAURIE (acute kidney injury): Status: Acute Assessment and Plan: this is a 35-year-old male with a history of bipolar disorder, diabetes initially admitted to the ICU for DKA in the setting of medication noncompliance now downgraded to the medical floor for further management uncontrolled diabetes DKA resolved sugars still uncontrolled, Hba1C >14 patient does not want to start insulin due to need for frequent sugar checks and pricking his finger. - Will continue scheduled Lantus for now - increase metformin - IV fluid - ADA diet, will tighten SSI - if does not agree to insulin, likely home with increased dose of metformin and home dose of victoza with plan for endocrinology follow up LAURIE improving with IVF -follow BMP right leg pain seems muscular. no h/o trauma doppler negative for dvt/bakers cyst -symptomatic care hypertension Continue lisinopril Mood continue home medications DVT prophylaxis-Lovenox Attending-Dr. Christopher
[2021-03-14 11:21] LABS: Glucose, Whole Blood 340 mg/dL (60-115)
[2021-03-14 11:33] VITALS: BP 189/67; PULSE 107; RESP 20; O2SAT 97
[2021-03-14] MEDS: oxyCODONE HCl Immed Release 5 MG TABLET PO ×2 (11:40→16:36)
[2021-03-14] MEDS: Enoxaparin Sodium 40 MG/0.4 ML SYRINGE SUBCUT (11:42)
[2021-03-14] MEDS: Lactated Ringers 1,000 ML 100 ML IVCONT ×2 (11:45→20:08)
[2021-03-14 12:38] VITALS: BP 156/62
[2021-03-14 15:38] VITALS: BP 168/60; PULSE 96; RESP 18; TEMP 36.3; O2SAT 92
[2021-03-14 15:41] LABS: Anion Gap 18 (12-20); Blood Urea Nitrogen 8 mg/dL (9-16); Calcium 9.4 mg/dL (8.4-10.2); Carbon Dioxide 20 mmol/L (22-29); Chloride 106 mmol/L (96-108); Creatinine Clr Calc Pharmacy 121.5; Estimated Glomerular Filt Rate > 60; Glucose Random 361 mg/dL (60-115); Potassium 4.1 mmol/L (3.3-5.1); Sodium 140 mmol/L (135-145)
[2021-03-14 16:19] LABS: Glucose, Whole Blood 322 mg/dL (60-115)
[2021-03-14] MEDS: metFORMIN HCl 1,000 MG TABLET 1000 MG PO (16:20)
[2021-03-14] MEDS: Acetaminophen 325 MG TABLET 650 MG PO (16:21)
[2021-03-14 18:59] VITALS: BP 189/86; PULSE 107; RESP 18; TEMP 36.3; O2SAT 95
[2021-03-14 19:47] LABS: Glucose, Whole Blood 280 mg/dL (60-115)
[2021-03-14] MEDS: lisinopriL 5 MG TABLET PO (20:07)
[2021-03-14] MEDS: Gabapentin 400 MG CAPSULE 1200 MG PO (20:07)
[2021-03-14] MEDS: OXcarbazepine 300 MG TABLET 900 MG PO (20:08)
[2021-03-15] VITALS (15 sets, daily range): BP systolic 131–198; BP diastolic 78–103; PULSE 90–900; RESP 16–19; TEMP 36.3–37; O2SAT 94–98
[2021-03-15] MEDS: oxyCODONE HCl Immed Release 5 MG TABLET PO ×2 (00:50→10:35)
[2021-03-15] MEDS: Lactated Ringers 1,000 ML 100 ML IVCONT (05:16)
[2021-03-15 05:43] LABS: Anion Gap 17 (12-20); Blood Urea Nitrogen 6 mg/dL (9-16); Calcium 8.7 mg/dL (8.4-10.2); Carbon Dioxide 22 mmol/L (22-29); Chloride 105 mmol/L (96-108); Creatinine Clr Calc Pharmacy 170.7; Estimated Glomerular Filt Rate > 60; Glucose Random 292 mg/dL (60-115); Potassium 3.6 mmol/L (3.3-5.1); Sodium 140 mmol/L (135-145)
[2021-03-15 07:09] LABS: Glucose, Whole Blood 275 mg/dL (60-115)
[2021-03-15] MEDS: Gabapentin 400 MG CAPSULE 1200 MG PO ×2 (08:18→20:59)
[2021-03-15] MEDS: metFORMIN HCl 1,000 MG TABLET 1000 MG PO ×2 (08:18→17:10)
[2021-03-15] MEDS: Topiramate 25 MG TABLET PO ×2 (08:18→20:59)
[2021-03-15] MEDS: Sertraline HCL 100 MG TABLET 200 MG PO (08:18)
[2021-03-15] MEDS: lisinopriL 5 MG TABLET PO (08:18)
[2021-03-15] MEDS: buPROPion HCL 75 MG TABLET PO (08:18)
[2021-03-15] MEDS: OXcarbazepine 300 MG TABLET PO (08:19)
[2021-03-15] MEDS: Docusate Sodium 100 MG CAPSULE PO ×2 (08:19→20:58)
[2021-03-15] MEDS: Insulin Glargine,Hum.rec.anlog 100 UNIT/ML 10 ML VIAL 10 UNIT SUBCUT (08:24)
[2021-03-15] MEDS: Insulin Lispro 100 UNIT/ML 3 ML VIAL SUBCUT ×4 (08:25→20:59)
[2021-03-15 11:01] LABS: Glucose, Whole Blood 284 mg/dL (60-115)
--- NOTE | 2021-03-15 11:39 | HO.PM.IMPN ---
Subjective Subjective Date of Service: 03/15/21 Interval History: Seen in f/u for DKA that has resolved, BP is high not on meds at home, c/o of some pain in the leg. Hgb A1C is over 14 Physical Exam Vital Signs: Vital Signs: Last Vital Signs Temp 98.6 F 03/15/21 11:09 Pulse 98 03/15/21 11:09 Resp 18 03/15/21 11:09 BP 182/98 H 03/15/21 11:09 Pulse Ox 94 03/15/21 11:09 Body Mass Index 35.3 Const: Nutritional Appearance: well nourished Orientation/consciousness: patient oriented x3 HENMT: Head: Yes normocephalic and Yes atraumatic Eyes: Sclerae: sclerae normal Chest: Chest palpation & inspection: normal inspection of the chest Resp: Effort & Inspection: normal respiratory effort and no respiratory distress Cardio: Rate: regular rate Rhythm: regular rhythm GI: Palpation (GI): Soft to palpation and nontender Neuro: General: patient oriented x3 Cranial nerves: Yes CN's II-XII intact bilaterally and Yes Bilaterally intact EOM present Extrem: Other: right leg no bruising or signs of trauma, no swelling or erythema Objective Data Current Medications Generic Name Dose Route Start Last Admin Trade Name Freq PRN Reason Stop Dose Admin Acetaminophen 650 mg 03/14/21 10:55 03/14/21 16:21 Acetaminophen 325 Mg Tablet PO 650 mg Q6H PRN Administration Pain, Mild (Pain Scale 1-3) Amlodipine Besylate 5 mg 03/15/21 11:30 Amlodipine Besylate 5 Mg Tablet PO DAILY FOR[facility]LY [facility], [facility]1983 Protocol Bupropion HCl 75 mg 03/13/21 09:00 03/15/21 08:18 Bupropion Hcl 75 Mg Tablet PO 75 mg DAILY OXANA Administration Clonazepam 0.5 mg 03/13/21 03:57 Clonazepam 0.5 Mg Tablet PO BID PRN Sleep Docusate Sodium 100 mg 03/13/21 10:00 03/15/21 08:19 Docusate Sodium 100 Mg Capsule PO 100 mg BID OXANA Administration Enoxaparin Sodium 40 mg 03/14/21 12:00 03/14/21 11:42 Enoxaparin Sodium 40 Mg/0.4 Ml Syringe SUBCUT 40 mg Q24H OXANA Administration Gabapentin 1,200 mg 03/13/21 09:00 03/15/21 08:18 Gabapentin 400 Mg Capsule PO 1,200 mg BID OXANA Administration Lactated Ringer's 1,000 mls @ 100 mls/hr 03/14/21 11:00 03/15/21 05:16 Lr IVCONT 100 mls/hr .Q10H OXANA Administration Insulin Glargine 25 unit 03/16/21 21:00 Insulin Glargine,Hum.Rec.Anlog 100 Unit/Ml 10 Ml Vial SUBCUT BEDTIME OAXNA Insulin Human Lispro 0 unit 03/14/21 07:30 03/15/21 08:25 Insulin Lispro 100 Unit/Ml 3 Ml Vial SUBCUT 8 unit QIDACHS OXANA Administration Protocol Lisinopril 10 mg 03/16/21 09:00 Lisinopril 10 Mg Tablet PO DAILY OXANA Protocol Metformin HCl 1,000 mg 03/14/21 17:00 03/15/21 08:18 Metformin Hcl 1,000 Mg Tablet PO 1,000 mg BIDWM OXANA Administration Oxcarbazepine 300 mg 03/13/21 09:00 03/15/21 08:19 Oxcarbazepine 300 Mg Tablet PO 300 mg DAILY OXANA Administration Oxcarbazepine 900 mg 03/13/21 21:00 03/14/21 20:08 Oxcarbazepine 300 Mg Tablet PO 900 mg BEDTIME OXANA Administration Oxycodone HCl 5 mg 03/14/21 16:25 03/15/21 10:35 Oxycodone Hcl Immed Release 5 Mg Tablet PO 5 mg Q6H PRN Administration Pain, Severe (Pain Scale 7-10) Sertraline HCl 200 mg 03/13/21 09:00 03/15/21 08:18 Sertraline Hcl 100 Mg Tablet PO 200 mg DAILY OXANA Administration Topiramate 25 mg 03/13/21 09:00 03/15/21 08:18 Topiramate 25 Mg Tablet PO 25 mg BID OXANA Administration Trazodone HCl 200 mg 03/13/21 03:57 Trazodone Hcl 100 Mg Tablet PO BEDTIME PRN Sleep Labs CBC & Chem 7: 03/14/21 07:56 03/15/21 04:18 Labs: Laboratory Results - last 24 hr 03/14/21 03/14/21 03/14/21 15:00 15:57 19:41 Sodium 140 Potassium 4.1 Chloride 106 Carbon Dioxide 20 L Anion Gap 18 BUN 8 L Creatinine 1.18 Estim Creat Clear Calc 121.5 Estimated GFR > 60 POC Glucose 322 H 280 H Random Glucose 361 H* Calcium 9.4 03/15/21 03/15/21 03/15/21 04:18 06:55 10:53 Sodium 140 Potassium 3.6 Chloride 105 Carbon Dioxide 22 Anion Gap 17 BUN 6 L Creatinine 0.84 Estim Creat Clear Calc 170.7 Estimated GFR > 60 POC Glucose 275 H 284 H Random Glucose 292 H Calcium 8.7 D Microbiology Microbiology Results: Microbiology 03/12/21 22:46 Blood Culture - Preliminary Blood - Venous No growth after 48 hours. 03/12/21 22:46 Blood Culture - Preliminary Blood - Venous No growth after 48 hours. Quality Stroke Does the patient have a stroke diagnosis?: No VTE Prior VTE?: No VTE Risk Level:: Medical - moderate - high VTE Device Contraindication: N/A - Device Ordered VTE Drug Contraindication: N/A - Med Ordered Assessment and Plan (1) DKA (diabetic ketoacidosis): Status: Acute (2) LAURIE (acute kidney injury): Status: Acute Assessment and Plan: this is a 35-year-old male with a history of bipolar disorder, diabetes initially admitted to the ICU for DKA in the setting of medication noncompliance now downgraded to the medical floor for further management DKA resolved Uncontrolled DM with A1C over 14, he is resisting to using insulin at home and checking blood sugars because 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 I was emphatic with him that with his level of diabeties insulin is necessary, else he risk serious complications, including loss of sensation of limbs that he is so concern about. He is now willing to start insulin, check his sugars and should see endocrinolgist anb be considered for a pump . changing Lantus to once daily at night, starting tomorrow LAURIE--d/t pre renal azotemia, this has resolved. right leg pain seems muscular. no h/o trauma doppler negative for dvt/bakers cyst -symptomatic care -likely neuropathic pain, it is better hypertension--BP very high, increase Lisinopril to 15, add Norvasc Continue lisinopril Mood continue home medications DVT prophylaxis-Lovenox home tomorrow, follow BP meds and insulin adjustement todayu
[2021-03-15] MEDS: lisinopriL 10 MG TABLET PO (11:48)
[2021-03-15] MEDS: amLODIPine Besylate 5 MG TABLET PO (11:49)
[2021-03-15] MEDS: Enoxaparin Sodium 40 MG/0.4 ML SYRINGE SUBCUT (11:49)
[2021-03-15] MEDS: Insulin Glargine,Hum.rec.anlog 100 UNIT/ML 10 ML VIAL SUBCUT (11:50)
[2021-03-15 16:21] LABS: Glucose, Whole Blood 268 mg/dL (60-115)
--- NOTE | 2021-03-15 19:52 | PC.NURSE ---
Addendum entered by Ifrah Lowe RN 03/15/21 21:05: Labetolol IV was administered by supervisor dried yeast as ordered,BP at present 131/86 pulse 106 Original Note: P elevated BP 178/[address] Girard notified of the above E patient has no complaints
[2021-03-15] MEDS: Labetalol HCL 100 MG/20 ML VIAL 10 MG IVPUSH (20:25)
[2021-03-15 20:27] LABS: Glucose, Whole Blood 302 mg/dL (60-115)
[2021-03-15] MEDS: OXcarbazepine 300 MG TABLET 900 MG PO (20:57)
[2021-03-16] VITALS (8 sets, daily range): BP systolic 158–165; BP diastolic 72–95; PULSE 81–104; RESP 17–20; TEMP 36.2–37.1; O2SAT 93–98
[2021-03-16 07:18] LABS: Glucose, Whole Blood 287 mg/dL (60-115)
[2021-03-16] MEDS: amLODIPine Besylate 5 MG TABLET PO (08:02)
[2021-03-16] MEDS: Insulin Glargine,Hum.rec.anlog 100 UNIT/ML 10 ML VIAL 20 UNIT SUBCUT (08:02)
[2021-03-16] MEDS: Sertraline HCL 100 MG TABLET 200 MG PO (08:02)
[2021-03-16] MEDS: Insulin Lispro 100 UNIT/ML 3 ML VIAL SUBCUT ×4 (08:02→20:13)
[2021-03-16] MEDS: metFORMIN HCl 1,000 MG TABLET 1000 MG PO ×2 (08:02→17:00)
[2021-03-16] MEDS: buPROPion HCL 75 MG TABLET PO (08:03)
[2021-03-16] MEDS: Gabapentin 400 MG CAPSULE 1200 MG PO ×2 (08:03→20:11)
[2021-03-16] MEDS: lisinopriL 10 MG TABLET PO (08:03)
[2021-03-16] MEDS: Topiramate 25 MG TABLET PO ×2 (08:03→20:12)
[2021-03-16] MEDS: Docusate Sodium 100 MG CAPSULE PO ×2 (08:04→20:11)
[2021-03-16] MEDS: OXcarbazepine 300 MG TABLET PO (08:04)
[2021-03-16 11:07] LABS: Glucose, Whole Blood 317 mg/dL (60-115)
[2021-03-16] MEDS: Enoxaparin Sodium 40 MG/0.4 ML SYRINGE SUBCUT (11:23)
--- NOTE | 2021-03-16 11:44 | PC.NURSE ---
pt educated on diabetes and insulin admin, handouts given to pt r/t diabetes. Pt reports that he is comfortable with self admin of insulin as he previously had insulin pen, encouraged to admin lunch time insulin, refused at this time.
[2021-03-16 16:07] LABS: Glucose, Whole Blood 307 mg/dL (60-115)
--- NOTE | 2021-03-16 16:10 | P.PNIM_ITS ---
Subjective Subjective Date of Service: 03/16/21 Interval History: Seen in f/u for DKA that has resolved, BP is high not on meds at home, c/o of some pain in the leg. Hgb A1C is over 14 Physical Exam Vital Signs: Vital Signs: Last Vital Signs Temp 97.6 F 03/16/21 14:56 Pulse 94 03/16/21 14:56 Resp 17 03/16/21 14:56 BP 158/78 H 03/16/21 14:56 Pulse Ox 95 03/16/21 14:56 Body Mass Index 35.3 Const: Nutritional Appearance: well nourished Orientation/consciousness: patient oriented x3 HENMT: Head: Yes normocephalic and Yes atraumatic Eyes: Sclerae: sclerae normal Chest: Chest palpation & inspection: normal inspection of the chest Resp: Effort & Inspection: normal respiratory effort and no respiratory distress Cardio: Rate: regular rate Rhythm: regular rhythm GI: Palpation (GI): Soft to palpation and nontender Neuro: General: patient oriented x3 Cranial nerves: Yes CN's II-XII intact bilaterally and Yes Bilaterally intact EOM present Extrem: Other: right leg no bruising or signs of trauma, no swelling or erythema Objective Data Current Medications Generic Name Dose Route Start Last Admin Trade Name Freq PRN Reason Stop Dose Admin Acetaminophen 650 mg 03/14/21 10:55 03/14/21 16:21 Acetaminophen 325 Mg Tablet PO 650 mg Q6H PRN Administration Pain, Mild (Pain Scale 1-3) Amlodipine Besylate 5 mg 03/15/21 11:30 03/16/21 08:02 Amlodipine Besylate 5 Mg Tablet PO 5 mg DAILY OXANA Administration Protocol Bupropion HCl 75 mg 03/13/21 09:00 03/16/21 08:03 Bupropion Hcl 75 Mg Tablet PO 75 mg DAILY OXANA Administration Clonazepam 0.5 mg 03/13/21 03:57 Clonazepam 0.5 Mg Tablet PO BID PRN Sleep Docusate Sodium 100 mg 03/13/21 10:00 03/16/21 08:04 Docusate Sodium 100 Mg Capsule PO 100 mg BID OXANA Administration Enoxaparin Sodium 40 mg 03/14/21 12:00 03/16/21 11:23 Enoxaparin Sodium 40 Mg/0.4 Ml Syringe SUBCUT 40 mg Q24H OXANA Administration Gabapentin 1,200 mg 03/13/21 09:00 03/16/21 08:03 Gabapentin 400 Mg Capsule PO 1,200 mg BID OXANA Administration Insulin Glargine 20 unit 03/16/21 09:00 03/16/21 08:02 Insulin Glargine,Hum.Rec.Anlog 100 Unit/Ml 10 Ml Vial SUBCUT 20 unit DAILY OXANA Administration Insulin Human Lispro 0 unit 03/14/21 07:30 03/16/21 11:25 Insulin Lispro 100 Unit/Ml 3 Ml Vial SUBCUT 10 unit QIDACHS OXANA Administration Protocol Lisinopril 10 mg 03/16/21 09:00 03/16/21 08:03 Lisinopril 10 Mg Tablet PO 10 mg DAILY OXANA Administration Protocol Metformin HCl 1,000 mg 03/14/21 17:00 03/16/21 08:02 Metformin Hcl 1,000 Mg Tablet PO 1,000 mg BIDWM OXANA Administration Oxcarbazepine 300 mg 03/13/21 09:00 03/16/21 08:04 Oxcarbazepine 300 Mg Tablet PO 300 mg DAILY OXANA Administration Oxcarbazepine 900 mg 03/13/21 21:00 03/15/21 20:57 Oxcarbazepine 300 Mg Tablet PO 900 mg BEDTIME OXANA Administration Oxycodone HCl 5 mg 03/14/21 16:25 03/15/21 10:35 Oxycodone Hcl Immed Release 5 Mg Tablet PO 5 mg Q6H PRN Administration Pain, Severe (Pain Scale 7-10) Sertraline HCl 200 mg 03/13/21 09:00 03/16/21 08:02 Sertraline Hcl 100 Mg Tablet PO 200 mg DAILY OXANA Administration Topiramate 25 mg 03/13/21 09:00 03/16/21 08:03 Topiramate 25 Mg Tablet PO 25 mg BID OXANA Administration Trazodone HCl 200 mg 03/13/21 03:57 Trazodone Hcl 100 Mg Tablet PO BEDTIME PRN Sleep Labs CBC & Chem 7: 03/14/21 07:56 03/15/21 04:18 Labs: Laboratory Results - last 24 hr 03/15/21 03/15/21 03/16/21 16:14 20:23 06:57 POC Glucose 268 H 302 H 287 H 03/16/21 03/16/21 10:59 15:58 POC Glucose 317 H 307 H Quality Stroke Does the patient have a stroke diagnosis?: No VTE Prior VTE?: No VTE Risk Level:: Medical - moderate - high VTE Device Contraindication: N/A - Device Ordered VTE Drug Contraindication: N/A - Med Ordered Assessment and Plan (1) DKA (diabetic ketoacidosis): Status: Acute (2) LAURIE (acute kidney injury): Status: Acute Assessment and Plan: 35-year-old male with a history of bipolar disorder, diabetes initially admitted to the ICU for DKA in the setting of medication noncompliance now downgraded to the medical floor for further management DKA resolved Uncontrolled DM with A1C over 14, he is resisting to using insulin at home and checking blood sugars because 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 I was emphatic with him that with his level of diabeties insulin is necessary, else he risk serious complications, including loss of sensation of limbs that he is so concern about. He is now willing to start insulin, check his sugars and should see endocrinolgist anb be considered for a pump . changing Lantus to once daily today, and monitor, needs diabetes teaching in regard to insulin use LAURIE--d/t pre renal azotemia, this has resolved. right leg pain seems muscular. no h/o trauma doppler negative for dvt/bakers cyst -symptomatic care -likely neuropathic pain, it is better hypertension--BP is better, continue Lisinopril, increase to 20 and continue Norvasc 5 Continue lisinopril Mood continue home medications DVT prophylaxis-Lovenox Home tomorrow
[2021-03-16 19:54] LABS: Glucose, Whole Blood 229 mg/dL (60-115)
[2021-03-16] MEDS: OXcarbazepine 300 MG TABLET 900 MG PO (20:12)
[2021-03-16] MEDS: oxyCODONE HCl Immed Release 5 MG TABLET PO (20:12)
[2021-03-17 03:25] VITALS: BP 140/70; PULSE 83; RESP 18; TEMP 36.1; O2SAT 97
[2021-03-17 07:18] VITALS: BP 148/96; PULSE 95; RESP 18; TEMP 35.9; O2SAT 97
[2021-03-17 07:26] LABS: Glucose, Whole Blood 291 mg/dL (60-115)
[2021-03-17] MEDS: Insulin Lispro 100 UNIT/ML 3 ML VIAL SUBCUT ×3 (08:03→16:25)
[2021-03-17] MEDS: Insulin Glargine,Hum.rec.anlog 100 UNIT/ML 10 ML VIAL 20 UNIT SUBCUT (08:03)
[2021-03-17 08:04] VITALS: BP 148/96; PULSE 95
[2021-03-17] MEDS: Docusate Sodium 100 MG CAPSULE PO (08:04)
[2021-03-17] MEDS: Gabapentin 400 MG CAPSULE 1200 MG PO (08:04)
[2021-03-17] MEDS: amLODIPine Besylate 5 MG TABLET PO (08:04)
[2021-03-17] MEDS: metFORMIN HCl 1,000 MG TABLET 1000 MG PO ×2 (08:04→16:25)
[2021-03-17] MEDS: OXcarbazepine 300 MG TABLET PO (08:04)
[2021-03-17] MEDS: Topiramate 25 MG TABLET PO (08:04)
[2021-03-17 08:05] VITALS: BP 148/96; PULSE 95
[2021-03-17] MEDS: lisinopriL 10 MG TABLET PO (08:05)
[2021-03-17] MEDS: buPROPion HCL 75 MG TABLET PO (08:05)
[2021-03-17] MEDS: Sertraline HCL 100 MG TABLET 200 MG PO (08:05)
[2021-03-17 11:03] LABS: Glucose, Whole Blood 291 mg/dL (60-115)
[2021-03-17 11:20] VITALS: BP 150/90; PULSE 96; RESP 20; TEMP 37.4; O2SAT 96
[2021-03-17] MEDS: Enoxaparin Sodium 40 MG/0.4 ML SYRINGE SUBCUT (11:29)
[2021-03-17 15:31] VITALS: BP 150/98; PULSE 90; RESP 15; TEMP 36.1; O2SAT 96
[2021-03-17 15:55] LABS: Glucose, Whole Blood 266 mg/dL (60-115)
--- NOTE | 2021-03-17 16:01 | MHC.CM.PN ---
Patient has been medically cleared for dc to home today, no services.
--- NOTE | 2021-03-17 16:51 | PM.DS ---
DS: Providers Provider Date of Service: 03/17/21 Date of admission: 03/13/21 00:55 Primary care physician: Jamin Marshall MD DS: Diagnosis Discharge Diagnosis (1) DKA (diabetic ketoacidosis): Status: Acute (2) LAURIE (acute kidney injury): Status: Acute DS: Medications Discharge Medications Home Medications: Home Medications Medication Instructions Recorded Confirmed bupropion HCl 1 tab PO QAM 03/13/21 03/13/21 clonazepam 1 tab PO BID PRN 03/13/21 03/13/21 gabapentin 3 cap PO BID 03/13/21 03/13/21 oxcarbazepine 300 mg PO DAILY 03/13/21 03/13/21 oxcarbazepine 900 mg PO BEDTIME 03/13/21 03/13/21 sertraline [Zoloft] 2 tab PO DAILY 03/13/21 03/13/21 topiramate [Topamax] 1 tab PO BID 03/13/21 03/13/21 trazodone 2 tab PO BEDTIME PRN 03/13/21 03/13/21 Previous Rx's Medication Instructions Recorded Victoza 2-Francisco Javier 1.2 mg SUBCUT DAILY 30 Days #6 ml 03/14/21 metformin 1,000 mg PO BID 30 Days #120 tab 03/14/21 amlodipine [Norvasc] 10 mg PO DAILY #30 tab 03/17/21 blood sugar diagnostic [FreeStyle #100 ea 03/17/21 Lite Strips] blood-glucose meter [FreeStyle #1 ea 03/17/21 Lite Meter] insulin glargine [Lantus Solostar 25 unit SUBCUT QAM #15 ml 03/17/21 U-100 Insulin] insulin lispro [Humalog KwikPen See Protocol SUBCUT TIDAC #15 ml 03/17/21 Insulin] lancets [Lancets,Ultra Thin] #100 ea 03/17/21 pen needle, diabetic #50 ea 03/17/21 DS: Summary Hospital Course Hospital Course: Chief Complaint: DKA / LAURIE HPI: Patient's history of bipolar disorder, obesity, diabetes type 2 not on insulin, insomnia, hypertension presented to the emergency room with complaints of ongoing right leg pain which has been present for several days but worsened over last 24 hours to the point that he could not take it anymore this morning. He thought that he was having bad charley horses, at the same time he thought he had injured his leg. Due to his insomnia, he has been forgetful and compliant with his diabetic medications. He only started getting nauseous this evening while in the emergency room. During the workup in the ER, he was noted to have tachycardia and tachypnea with heart rate of 130 and respirations of 22, his laboratory workup revealed white count 13.8, hemoglobin of 16 and hematocrit 53, platelets 310. Sodium 135, potassium of 4.6, chloride 105, carbon dioxide 7, anion gap 28, BUN 14, creatinine 1.73 when his baseline is 0.9-1, random glucose 422. COVID negative. Patient was started on IV fluids, was load given a load of insulin followed by insulin drip. Currently he states that he feels much better, he no longer feels the cramps in his legs, denies any other symptoms other done polydipsia and polyuria. Hospital course: 35 year with diabetes and HTN, he is not regular with his meds. 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 He is supposed to be on Metformin 500 bid, he is not on BP meds. He presented to with right leg pain as stated above, some nausea, insomnia and forgetfullness. He was found to be in DKA with glucose of 422, bicab of 7 and AGAP of 28, and LAURIE with Creatinine of 1.73, baseline been < less than one. He was aggresively treated with IVF and was admitted to ICU where he was on insulin by DKA protocol. His hemoglobin A1C is markedly elevated at > 14. 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 He has finally come to term that he will take insulin I am prescribing Lantus and Sliding scale, presently Lantus 25 daily, he may need further adjustement. He will continue Metformin at increased dose of 100 bid. He says he knows how to use insulin pen ( as he has used it before). Acute kidney injury has entirely resolved with IVF and last creatine was 0.84 on 7/4/21. Of note he has HTN that has not been treated and I have started Norvasc and will increase to 10 mg daily. He may need further may adjustment and so long as Creatine is ok, should be consider for ACEi or ARB. A referal is made for patient to go to endocrinology office and to have further evaluation for diabetes and be donsidered for insulin pump. I went over discharge plan with the patient and he voiced understanding and said he will follow all direction, including watching out for hypoglycemia. Time Spent with Patient Time attestation: Total time spent providing and/or coordinating discharge services: Discharge coordination time: Greater than 30 minutes Quality: Stroke Does the patient have a stroke diagnosis?: No Physical Exam Vital Signs: Vital Signs: Last Vital Signs Temp 97 F 03/17/21 15:31 Pulse 90 03/17/21 15:31 Resp 15 03/17/21 15:31 BP 150/98 H 03/17/21 15:31 Pulse Ox 96 03/17/21 15:31 Body Mass Index 35.3 DS: Data Data Completed and Pending Labs on day of discharge: Laboratory Results - last 24 hr 03/16/21 03/17/21 03/17/21 19:47 07:17 11:00 POC Glucose 229 H 291 H 291 H 03/17/21 15:46 POC Glucose 266 H Preliminary micro results at discharge 03/12/21 22:46 Blood Culture - Preliminary Blood - Venous No growth after 48 hours. 03/12/21 22:46 Blood Culture - Preliminary Blood - Venous No growth after 48 hours. Discharge Plan Discharge Anticipated Discharge Date/Time: 03/17/21 15:40 Patient Disposition: Home, Self-Care Discharge Diagnosis: DKA Referrals: Chun Trejo MD [Physician] - 1 Week Jamin Marshall MD [Primary Care Provider] - 1 Week Discharge Medications: New Lantus Solostar U-100 Insulin 100 unit/mL (3 mL) insulin pen 25 unit subcut QAM Qty: 15 RF: 0 insulin lispro [Humalog KwikPen Insulin] 100 unit/mL insulin pen See Protocol unit subcut TIDAC Qty: 15 RF: 0 (DME) pen needle, diabetic 31 gauge x 1/4 needle See Rx Instructions .ROUTE .MEDSUPPLY Qty: 50 RF: 0 (DME) lancets [Lancets,Ultra Thin] Misc See Rx Instructions .ROUTE .MEDSUPPLY Qty: 100 RF: 0 (DME) blood-glucose meter [FreeStyle Lite Meter] Kit See Rx Instructions .ROUTE .MEDSUPPLY Qty: 1 RF: 0 (DME) FreeStyle Lite Strips Strip See Rx Instructions .ROUTE .MEDSUPPLY Qty: 100 RF: 0 amlodipine [Norvasc] 10 mg tablet 10 mg PO DAILY Qty: 30 RF: 0 Continued clonazepam 0.5 mg tablet 1 tab PO BID PRN (Reason: Sleep) RF: 0 gabapentin 400 mg capsule 3 cap PO BID RF: 0 sertraline [Zoloft] 100 mg tablet 2 tab PO DAILY RF: 0 topiramate [Topamax] 25 mg tablet 1 tab PO BID RF: 0 trazodone 100 mg tablet 2 tab PO BEDTIME PRN (Reason: Sleep) RF: 0 bupropion HCl 75 mg tablet 1 tab PO QAM RF: 0 oxcarbazepine 300 mg Tablet 300 mg PO DAILY RF: 0 oxcarbazepine 600 mg Tablet 900 mg PO BEDTIME RF: 0 Victoza 2-Francisco Javier 0.6 mg/0.1 mL (18 mg/3 mL) Pen Injector 1.2 mg SUBCUT DAILY 30 Days Qty: 6 RF: 0 Changed metformin 500 mg Tablet 1,000 mg PO BID 30 Days Qty: 120 RF: 0 Discharge Orders: Discharge Order (Routine); Ordered 03/17/21 Ordered By: Aung Christopher Activity on Discharge: As tolerated Stand Alone Forms: Patient Portal Discharge page Care Plan Goals: see below Health Concerns: DKA/uncontrolled diabetes Plan of Treatment: Resume previous diabetic medications. 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 Take Norvasc as recommended for high blood pressure. Assessment: see discharge summary
== END 2021-03-17 17:38 | disposition home or self-care (01) | DRG 420 ==
LOC: HO.ED 03-13 00:54 → HO.ICU 03-13 01:05 → HO.IMC 03-13 21:49
PROVIDERS: Anesthesiology; Internal Medicine; Physician Assistant Medical; Admitting Provider Physician Assistant Medical; Emergency Provider Student in an Organized Health Care Education/Training Program; PCP Internal Medicine; Visit Provider Internal Medicine
DX: E11.10 Type 2 diabetes mellitus with ketoacidosis without coma (principal); N17.9 Acute kidney failure, unspecified; E86.0 Dehydration; F31.81 Bipolar II disorder; E66.9 Obesity, unspecified; I10 Essential (primary) hypertension; E11.42 Type 2 diabetes mellitus with diabetic polyneuropathy; Z68.35 Body mass index [BMI] 35.0-35.9, adult; Z91.19 Patient's noncompliance with other medical treatment and regimen; Z20.822 Contact with and (suspected) exposure to COVID-19; Z79.4 Long term (current) use of insulin; Z79.899 Other long term (current) drug therapy
CPT/HCPCS: 36415; 71045; 80048; 80053; 81001; 81003; 82947; 83036; 83605; 83690; 83735; 84100; 84484; 85025; 85027; 87040; 87635; 93005; 93971; 99285; J1170; J1650; J1885; J2405

== ENCOUNTER 2021-07-31 10:07 | Outpatient (REF) | payer OTHER, SELFPAY ==
--- NOTE | ~2021-07-31 | XR_ITS ---
EXAMINATION: XR SHOULDER, LEFT CLINICAL INFORMATION: Left shoulder pain. COMPARISON: None TECHNIQUE: AP external rotation, Grashey, scapular Y, and axillary views of the left shoulder. FINDINGS: The bones and soft tissues are normal. No fracture. Glenohumeral and acromioclavicular alignment is anatomic with normal joint space. No abnormal soft tissue calcifications. XR/XR shoulder LT min 2V IMPRESSION: Normal left shoulder.
== END 2021-07-31 10:08 | disposition home or self-care (01) ==
LOC: HO.XRAY 10:07
PROVIDERS: PCP Internal Medicine; Visit Provider Internal Medicine
DX: S43.402D Unspecified sprain of left shoulder joint, subsequent encounter (principal)
CPT/HCPCS: 73030

== ENCOUNTER → 2021-08-11 07:53 | Outpatient (REF) | payer OTHER, SELFPAY ==
--- NOTE | 2021-08-11 07:56 | CA_ITS ---
Acquisition Time: 2021-08-11 08:05:26 Total Exercise Time: 00:02:10 Test Indications: Chest Pain Medications: AMLODIPINE BUPROPION CLONAZAPAM GABAPENTIN METFORM SERTRALINE Protocol: SABA Max HR: 157 BPM 83% of Pred: 187 BPM Max BP: 160/098 mmHG Max Work Load: 4.6 METS Exercise stress test with exercise 2 min 10 sec of Saba protocol, with 2/10 mid chest tightness at baseline which increased up to 8/10 with walking, with isolated PVCs, with normotensive response to exercise, with T wave inversions leads III, aVF, V4-V6 at baseline without significant change with walking or recovery. Similar T wave abnormalities seen on EKG from March 2021. In recovery his chest discomfort gradually improved to 1/10. He reported being awoken by this pain during the night last night, 10, which gradually resolved with relaxation and having the pain again walking in to hospital this am, 210. Dr Finch notified of the above events. Will transport him to the ED for evaluation/ unstable angina. Pt agreeable to this plan. IV line inserted by RN. Report called to the ED. Transported to ED via stretcher, with portable monitor, RN and transporter. Referred By: Alexys Ellis Overread By: BALAJI YA
== END ==
LOC: HO.CARD 07:53
PROVIDERS: Visit Provider Internal Medicine
DX: R07.9 Chest pain, unspecified (principal); E11.65 Type 2 diabetes mellitus with hyperglycemia
CPT/HCPCS: 93017

== ENCOUNTER 2021-08-11 09:19 | Emergency (ER) | payer OTHER, SELFPAY ==
--- NOTE | ~2021-08-11 | XR_ITS ---
EXAMINATION: XR CHEST CLINICAL INFORMATION: Chest pain COMPARISON: Chest radiographs 03/12/2021 TECHNIQUE: Portable upright AP view of the chest was obtained. FINDINGS: There are low lung volumes. The lungs are clear and there is no pneumothorax, pleural reaction, airspace opacity, or effusion. The heart is normal in size. The hilar and mediastinal contours and visualized bony structures are unremarkable. XR/XR chest 1V IMPRESSION: Unremarkable examination.
[2021-08-11 09:22] VITALS: BP 124/85; PULSE 102; RESP 18; TEMP 37.1; O2SAT 96; BMI 38.6
--- NOTE | 2021-08-11 09:30 | PC.NURSE ---
pt alert and oriented, vss, HR 99-102 on the monitor, afebrile. he c/o 8/10 sharp stabbing chest pain. pt states he was doing a stress test and approximately 2 minutes after starting on the treadmill he started have chest pain. pt denies sob/headache/dizziness. no other symptoms reported.
--- NOTE | 2021-08-11 09:45 | ECG_ITS ---
Test Reason : chest pain Blood Pressure : / mmHG Vent. Rate : 104 BPM Atrial Rate : 104 BPM P-R Int : 122 ms QRS Dur : 080 ms QT Int : 352 ms P-R-T Axes : 001 031 -04 degrees QTc Int : 462 ms Sinus tachycardia Nonspecific T wave abnormality Abnormal ECG When compared with ECG of 12-MAR-2021 22:38, Heart rate has decreased Referred By: Lacy Rose Electronically Signed By:JON CHAVEZ MD
--- NOTE | 2021-08-11 09:45 | ED.CHESTPAIN ---
HPI - Chest Pain General Chief Complaint: Chest Pain Stated Complaint: Chest pain Time Seen by Provider: 08/11/21 09:45 Source: patient Mode of arrival: ambulatory Limitations: no limitations History of Present Illness HPI narrative: 35-year-old male with a history of bipolar, poorly controlled diabetes on insulin, hx DKA due to noncompliance, HTN, anxiety who was sent to the ER from [facility] Stress Test where he was getting evaluated for exertional chest pain. He reports about 2 minutes into the treadmill exercise test he had 8/10 sharp substernal chest pain that does not radiate. With rest the pain reports improved to 1/10. He was sent to the ER for evaluation of possible unstable angina. Patient reports he has been having middle chest pain new and increasing for the last 1 month. He reports his biological mother from heart attack he thinks when she was in her 30s. His grandmother knows more details. During his chest pain episodes he denies any radiation, no nausea, no vomiting, no shortness of breath or diaphoresis. MD complaint: chest pain Pertinent past history: asthma and other (DB) Timing of current episode: episodic Prior episodes: Yes Onset: during exertion Pain location: substernal Pain radiation: none Severity: moderate Pain scale (0-10): 6 Quality: tightness Relieving factors: nothing Exacerbating factors: exertion Treatment prior to arrival: none Risk Factors Coronary artery disease risk factors: diabetes and hypertension Thoracic aortic dissection risk factors: none Related Data Home Medications Medication Instructions Recorded Confirmed oxcarbazepine 300 mg tablet 300 mg PO DAILY 03/13/21 08/04/21 oxcarbazepine 600 mg tablet 900 mg PO BEDTIME 03/13/21 08/04/21 bupropion HCl 75 mg tablet 75 mg PO QAM 03/20/21 08/04/21 clonazepam 0.5 mg tablet 0.5 mg PO BID PRN 03/20/21 08/04/21 gabapentin 400 mg capsule 1,200 mg PO BID 03/20/21 08/04/21 sertraline 100 mg tablet (Zoloft) 200 mg PO DAILY 03/20/21 08/04/21 topiramate 25 mg tablet (Topamax) 25 mg PO BID 03/20/21 08/04/21 trazodone 100 mg tablet 200 mg PO BEDTIME PRN 03/20/21 08/04/21 Previous Rx's Medication Instructions Recorded lancets (Lancets,Ultra Thin) #100 ea 04/14/21 blood sugar diagnostic (FreeStyle 1 strip MISCELLANEOUS QID #100 06/06/21 Lite Strips) strip metformin 500 mg tablet 1,000 mg PO BID #120 tab 06/06/21 flash glucose scanning reader #1 ea 07/01/21 (FreeStyle Claus 2 Lawai) flash glucose sensor (FreeStyle #2 ea 07/31/21 Claus 2 Sensor) pen needle, diabetic 31 gauge x #100 ea 08/03/21 1/4 amlodipine 10 mg tablet 10 mg PO DAILY #30 tab 08/04/21 insulin glargine 100 unit/mL (3 90 unit (0.9 mL) SUBCUT DAILY #15 08/10/21 mL) subcutaneous pen (Lantus ml Solostar U-100 Insulin) insulin lispro 100 unit/mL 25 unit (0.25 mL) SUBCUT TID #15 ml 08/10/21 subcutaneous pen (Humalog KwikPen (U-100) Insulin) Allergies Allergy/AdvReac Type Severity Reaction Status Date / Time No Known Allergies Allergy Verified 08/04/21 13:45 [No Known Allergies*] Review of Systems Review of Systems: Constitutional: No Fever, No Chills ENT/Mouth: No sore throat, No Rhinorrhea, No Swallowing Difficulty Cardiovascular: + Chest Pain, No SOB, No Orthopnea, No Edema Respiratory: No Cough, No Sputum, No Wheezing, No dyspnea Gastrointestinal: No Nausea, No Vomiting, No Diarrhea, No abdominal Pain Genitourinary: No Dysuria, No Urinary Frequency, No Hematuria Musculoskeletal: No joint pain, No Myalgias Skin: No Skin Lesions, No rash Neuro: No Weakness, No Numbness, No Dizziness, No Headache Psych: + Anxiety/Panic, No Depression Heme/Lymph: No Bruising, No Lymphadenopathy Endocrine: No Polyuria, No Polydipsia PMFSH Past Medical History Medical History Bipolar illness Borderline hypercholesterolemia DM (diabetes mellitus) type II uncontrolled with eye manifestation Essential hypertension Generalized anxiety disorder Tear meniscus knee Type 2 diabetes mellitus with hyperglycemia Surgical History History of right knee surgery Hx of left knee surgery Family History Family History Other Mental problem Social History Social History Household Members: None Housing: Apartment Do you presently have visiting nurse or other home services: No ([employer] 3X A WEEK) Alcohol intake: never Patient Tobacco Use Status: Never used Tobacco e-Cigarette/Vaping Use: Never Used Second Hand Smoke Exposure: Yes Use of substances other than those prescribed or required for medical reasons: No Advance Directives: No Advance Directives Information Provided: No service: No Current occupational status: disabled Cognitive needs: No Hearing needs: No Vision needs: Yes (Glasses) Physical Exam Vital Signs: Vital Signs: Last Vital Signs Temp 98.1 F 08/11/21 11:29 Pulse 98 08/11/21 11:29 Resp 24 H 08/11/21 11:29 BP 139/88 08/11/21 11:29 Pulse Ox 95 08/11/21 11:29 Body Mass Index 38.6 Appearance: Alert. Oriented X3. No acute distress. Eyes: Pupils equal, round and reactive to light. ENT: Pharynx normal. Neck: Normal inspection. Neck supple. CVS: Normal heart rate and rhythm. Pulses normal. Respiratory: No respiratory distress. Breath sounds normal. Nontender chest wall. Abdomen: Soft and nontender. +BS x4 Skin: Skin warm and dry. Normal skin color. Normal skin turgor. No rashes. Extremities: No lower extremity edema. Neuro: Oriented X 3. No motor deficit. No sensory deficit. Course Course Course Narrative: 35-year-old male presents to the ER with exertional chest pain during exercise stress test at the cardiac lab today. His EKG has no new ischemic changes. He continues to have 8/10 tightening while in the emergency department. IV morphine has been given. Will reassess. Will check troponin x2 and trended other EKG. Will discuss with Cardiology. Reevaluation(s) Reevaluation #1: Troponin negative x2. Previously inverted T-waves in leads III V5 V6 are resolved on EKG #[address] segment elevations or depressions. Chest x-ray is unremarkable. D-dimer is negative. Patient's chest pain resolved with 4 mg of IV morphine. He feels well. Case was discussed with Dr. Finch and EKGs were sent. At this time patient is stable for discharge home with planned follow-up with Dr. Finch the office. Patient agrees with plan. Instructed to return to the ER if he has any new or worsening symptoms. MDM - Chest Pain Medical Records Data Attestation: I reviewed the patient's medical records. Lab Data Attestation: I reviewed the patient's lab results. Result diagrams: 08/11/21 09:54 08/11/21 09:54 Labs: Lab Results 08/11/21 08/11/21 08/11/21 Range/Units 09:54 09:54 09:54 WBC 11.3 H (4.8-10.8) X10*3/uL RBC 5.76 (4.60-5.80) X10*6/uL Hgb 14.5 (14.0-18.0) g/dl Hct 45.1 (42.0-52.0) % MCV 78.3 L (80.0-98.0) fL MCH 25.2 L (27.0-33.0) pg MCHC 32.2 (31.0-36.0) g/dl RDW 13.9 (11.0-16.0) % Plt Count 298 (160-400) X10*3/uL MPV 10.2 (9.4-12.4) fL Immature Gran % (Auto) 0.3 (0.0-0.4) % Neut % (Auto) 63.9 (45-73) % Lymph % (Auto) 23.5 (20-40) % [place] % (Auto) 8.7 (2-11) % Eos % (Auto) 3.1 (0-4) % Baso % (Auto) 0.5 (0-2) % Lymph # (Auto) 2.6 (1.2-4.9) X10*3/uL [place] # (Auto) 1.0 (0.1-1.2) X10*3/uL Eos # (Auto) 0.4 (0.0-0.4) X10*3/uL Baso # (Auto) 0.1 (0.0-0.2) X10*3/uL Abs Immat Gran (auto) 0.03 (0.00-0.03) X10*3/uL Absolute Neuts (auto) 7.2 (2.0-8.3) x10*3/uL Absolute Nucleated RBC 0.000 (0.0-0.012) X10*3/uL Nucleated RBC % (auto) 0.0 (0.0-0.2) /100WBC D-Dimer High Sensitivty NG/ML Sodium 140 (135-145) mmol/L Potassium 4.1 (3.3-5.1) mmol/L Chloride 106 (96-108) mmol/L Carbon Dioxide 23 (22-29) mmol/L Anion Gap 15 (12-20) BUN 10 D (9-16) mg/dL Creatinine 0.77 (0.5-1.4) mg/dL Estim Creat Clear Calc 189.6 Estimated GFR > 60 Random Glucose 163 H D (60-115) mg/dL Calcium 9.9 D (8.4-10.2) mg/dL Magnesium 1.6 (1.6-2.6) mg/dL Total Bilirubin 0.6 (0.0-1.0) mg/dL Direct Bilirubin 0.2 (0.0-0.5) mg/dL AST 16 (5-37) U/L ALT 25 (0-40) U/L Alkaline Phosphatase 62 (39-117) U/L Troponin I High Sens (<3.5-35.0) ng/L Total Protein 7.3 (6.5-8.0) g/dL Albumin 4.2 (3.5-5.0) g/dL COVID-19 ([facility]) Negative (Negative) COVID-19 Clin Com See Note 08/11/21 08/11/21 08/11/21 Range/Units 09:54 09:54 13:37 WBC (4.8-10.8) X10*3/uL RBC (4.60-5.80) X10*6/uL Hgb (14.0-18.0) g/dl Hct (42.0-52.0) % MCV (80.0-98.0) fL MCH (27.0-33.0) pg MCHC (31.0-36.0) g/dl RDW (11.0-16.0) % Plt Count (160-400) X10*3/uL MPV (9.4-12.4) fL Immature Gran % (Auto) (0.0-0.4) % Neut % (Auto) (45-73) % Lymph % (Auto) (20-40) % [place] % (Auto) (2-11) % Eos % (Auto) (0-4) % Baso % (Auto) (0-2) % Lymph # (Auto) (1.2-4.9) X10*3/uL [place] # (Auto) (0.1-1.2) X10*3/uL Eos # (Auto) (0.0-0.4) X10*3/uL Baso # (Auto) (0.0-0.2) X10*3/uL Abs Immat Gran (auto) (0.00-0.03) X10*3/uL Absolute Neuts (auto) (2.0-8.3) x10*3/uL Absolute Nucleated RBC (0.0-0.012) X10*3/uL Nucleated RBC % (auto) (0.0-0.2) /100WBC D-Dimer High Sensitivty < 150 NG/ML Sodium (135-145) mmol/L Potassium (3.3-5.1) mmol/L Chloride (96-108) mmol/L Carbon Dioxide (22-29) mmol/L Anion Gap (12-20) BUN (9-16) mg/dL Creatinine (0.5-1.4) mg/dL Estim Creat Clear Calc Estimated GFR Random Glucose (60-115) mg/dL Calcium (8.4-10.2) mg/dL Magnesium (1.6-2.6) mg/dL Total Bilirubin (0.0-1.0) mg/dL Direct Bilirubin (0.0-0.5) mg/dL AST (5-37) U/L ALT (0-40) U/L Alkaline Phosphatase (39-117) U/L Troponin I High Sens 8.3 7.9 (<3.5-35.0) ng/L Total Protein (6.5-8.0) g/dL Albumin (3.5-5.0) g/dL COVID-19 ([facility]) (Negative) COVID-19 Clin Com ECG Data ECG #1: Attestation: I personally reviewed and interpreted this ECG as follows: ECG interpretation date: 08/11/21 ECG interpretation time: 09:23 Prior ECG tracings: available for review Interpretation: Sinus tachycardia, heart rates 104 beats per minute, nonspecific T-wave abnormality, no ST segment elevations or depressions ECG #2: Attestation: I personally reviewed and interpreted this ECG as follows: ECG interpretation date: 08/11/21 ECG interpretation time: 10:10 Prior ECG tracings: available for review Interpretation: Sinus tachycardia, heart rate 100 beats per minute, normal FL interval, no ST segment elevations or depressions. T-wave inversions previously seen in lead III AVF V5 and V6 are no longer present Critical Care Time Critical Care Time Critical Care Time: No Discharge Plan Discharge Clinical Impression: Chest pain, exertional Patient Disposition: Home, Self-Care Instructions: Chest Pain (ED) Additional Instructions: Your workup today was unremarkable. No evidence of heart attack or blood clot. Recommend following back up with Cardiology. If you develop new or worsening symptoms call 911 or come back to the ER for further evaluation. Prescriptions: No Action (DME) lancets [Lancets,Ultra Thin] Misc See Rx Instructions .ROUTE .MEDSUPPLY Qty: 100 RF: 0 FreeStyle Lite Strips Strip 1 strip miscellaneous QID Qty: 100 RF: 3 metformin 500 mg tablet 1,000 mg PO BID Qty: 120 RF: 3 (DME) FreeStyle Claus 2 Sensor Kit See Rx Instructions .Route Qty: 2 RF: 6 (DME) pen needle, diabetic 31 gauge x 1/4 needle See Rx Instructions .ROUTE .MEDSUPPLY Qty: 100 RF: 1 insulin lispro [Humalog KwikPen Insulin] 100 unit/mL insulin pen 25 unit subcut TID Qty: 15 RF: 0 Lantus Solostar U-100 Insulin 100 unit/mL (3 mL) insulin pen 90 unit subcut DAILY Qty: 15 RF: 1 oxcarbazepine 300 mg Tablet 300 mg PO DAILY RF: 0 oxcarbazepine 600 mg Tablet 900 mg PO BEDTIME RF: 0 bupropion HCl 75 mg tablet 75 mg PO QAM RF: 0 clonazepam 0.5 mg tablet 0.5 mg PO BID PRN (Reason: Sleep) RF: 0 gabapentin 400 mg capsule 1,200 mg PO BID RF: 0 sertraline [Zoloft] 100 mg tablet 200 mg PO DAILY RF: 0 topiramate [Topamax] 25 mg tablet 25 mg PO BID RF: 0 trazodone 100 mg tablet 200 mg PO BEDTIME PRN (Reason: Sleep) RF: 0 amlodipine 10 mg tablet 10 mg PO DAILY Qty: 30 RF: 3 (DME) FreeStyle Claus 2 Lawai Misc See Rx Instructions .Route Qty: 1 RF: 0 Referrals: Julian Finch MD [Physician] - 2 days (exertional chest pain)
[2021-08-11 09:59] LABS: MANUAL DIFF FLAG NO
[2021-08-11 10:02] LABS: Basophils Absolute Auto 0.1 X10*3/uL (0.0-0.2); Basophils Percent Auto 0.5 % (0-2); Eosinophils Absolute Auto 0.4 X10*3/uL (0.0-0.4); Eosinophils Percent Auto 3.1 % (0-4); Hematocrit 45.1 % (42.0-52.0); Hemoglobin 14.5 g/dl (14.0-18.0); Imm Gran Abs Auto 0.03 X10*3/uL (0.00-0.03); Imm Gran Pct Auto 0.3 % (0.0-0.4); Lymphocytes Absolute Auto 2.6 X10*3/uL (1.2-4.9); Lymphocytes Percent Auto 23.5 % (20-40); Mean Corpuscular HGB Conc 32.2 g/dl (31.0-36.0); Mean Corpuscular Hemoglobin 25.2 pg (27.0-33.0); Mean Corpuscular Volume 78.3 fL (80.0-98.0); Mean Platelet Volume 10.2 fL (9.4-12.4); Monocytes Percent Auto 8.7 % (2-11); Neutrophils Absolute Auto 7.2 x10*3/uL (2.0-8.3); Neutrophils Percent Auto 63.9 % (45-73); Platelet Count 298 X10*3/uL (160-400); Red Blood Count 5.76 X10*6/uL (4.60-5.80); Red Cell Distribution Width 13.9 % (11.0-16.0); White Blood Count 11.3 X10*3/uL (4.8-10.8)
--- NOTE | 2021-08-11 10:05 | ECG_ITS ---
Test Reason : CHEST PAIN Blood Pressure : / mmHG Vent. Rate : 100 BPM Atrial Rate : 100 BPM P-R Int : 138 ms QRS Dur : 068 ms QT Int : 326 ms P-R-T Axes : 012 025 -06 degrees QTc Int : 420 ms Normal sinus rhythm Nonspecific T wave abnormality Abnormal ECG When compared with ECG of 11-AUG-2021 09:23, No significant change was found Referred By: Lacy Rose Electronically Signed By:JON CHAVEZ MD
[2021-08-11 10:11] LABS: D Dimer High Sensitivity < 150 NG/ML
[2021-08-11] MEDS: Morphine Sulfate 4 MG/ML CARTRIDGE IVPUSH (10:15)
[2021-08-11 10:17] LABS: Alanine Aminotransferase 25 U/L (0-40); Albumin Level 4.2 g/dL (3.5-5.0); Alkaline Phosphatase 62 U/L (39-117); Anion Gap 15 (12-20); Aspartate Amino Transferase 16 U/L (5-37); Bilirubin Direct 0.2 mg/dL (0.0-0.5); Bilirubin Total 0.6 mg/dL (0.0-1.0); Blood Urea Nitrogen 10 mg/dL (9-16); COVID-19 Test Negative (Negative); Calcium 9.9 mg/dL (8.4-10.2); Carbon Dioxide 23 mmol/L (22-29); Chloride 106 mmol/L (96-108); Creatinine Clr Calc Pharmacy 189.6; Estimated Glomerular Filt Rate > 60; Glucose Random 163 mg/dL (60-115); Magnesium 1.6 mg/dL (1.6-2.6); Potassium 4.1 mmol/L (3.3-5.1); Sodium 140 mmol/L (135-145); Total Protein 7.3 g/dL (6.5-8.0)
[2021-08-11 10:21] LABS: Troponin-I High Sensitivity 8.3 ng/L (<3.5-35.0)
[2021-08-11 11:29] VITALS: BP 139/88; PULSE 98; RESP 24; TEMP 36.7; O2SAT 95
[2021-08-11 14:04] LABS: Troponin-I High Sensitivity 7.9 ng/L (<3.5-35.0)
== END 2021-08-11 15:03 | disposition home or self-care (01) ==
PROVIDERS: Physician Assistant; Emergency Provider Emergency Medicine; PCP Internal Medicine
DX: R07.89 Other chest pain (principal); R00.0 Tachycardia, unspecified; Z20.822 Contact with and (suspected) exposure to COVID-19; F41.9 Anxiety disorder, unspecified; E11.9 Type 2 diabetes mellitus without complications; I10 Essential (primary) hypertension; Z79.4 Long term (current) use of insulin
CPT/HCPCS: 36415; 71045; 80048; 80076; 83735; 84484; 85025; 85379; 87635; 93005; 96374; 99284; J2270

== ENCOUNTER 2021-08-18 10:36 | Outpatient (REF) | payer OTHER, SELFPAY ==
[2021-08-18 15:03] LABS: Prothrombin Time 11.4 SEC (9.9-13.0)
[2021-08-18 15:11] LABS: COVID-19 Test Negative (Negative)
--- NOTE | 2021-08-19 14:01 | CA_ITS ---
Transthoracic Echocardiogram Patient (Last, First, Middle): Oliver Maddox T Gender: Male Date of : 1985 Age: 35 Procedure Date: 08/19/2021 Procedure Type: Transthoracic Echocardiogram Location: OP Height: 182.88 cm Weight: 129.28 kg BSA: 2.48 m2 Heart Rate: bpm BP: 136 / 80 mmHg [employer]: RHONA Referring MD: Julian Finch MD Symptoms: R07.2 - Precordial pain Study Quality: Technically Difficult ECG Rhythm: Sinus Conclusions: - 1. Technically limited study 2. Normal LV systolic and diastolic function 3. Limited visualization of cardiac valves with normal cardiac valvular Doppler Findings Procedure Information Contrast agent, definity, is being given per protocol without apparent complications. Left Ventricle Normal left ventricular size, thickness, and systolic function. The visually estimated ejection fraction is between 55-60%. There is no evidence of regional wall motion abnormalities. Spectral Doppler is indicative of a normal filling pattern. Right Ventricle The right ventricle was not well visualized. Atria The left atrium was not well visualized. Interatrial shunt cannot be excluded. The right atrium was not well visualized. Aortic Valve The aortic valve was not well visualized. There is no aortic valve stenosis. There is no aortic valve regurgitation. Mitral Valve The mitral valve was not well visualized. There is no mitral valve regurgitation. There is no mitral valve stenosis. Pulmonic Valve The pulmonic valve was not well visualized. Tricuspid Valve The tricuspid valve was not well visualized. There is trace tricuspid valve regurgitation. The right ventricular systolic pressure is normal. Great Vessels The aorta was not well visualized. The pulmonary artery was not well visualized. Venous The inferior vena cava was not well visualized. Pericardium/Pleural The pericardium was not well visualized. Prior Study Comparison No prior study available for comparison. Measurements 2D Linear Measurements IVSd: 1.09 0.6-0.9/0.6-1.0 cm LVIDd: 4.83 3.9-5.3/4.2-5.9 cm LVIDd Index: 1.95 2.4-3.2/2.2-3.1 cm/m2 LVIDs: 3.68 2.0-3.6 cm LVPWd: 1.12 0.7-1.1 cm Ao Root: 3.30 2.1-3.5 cm LA Diam: 3.30 2.7-3.8/3.0-4.0 cm LAIDs Index: 1.33 1.5-2.3 cm/m2 LV Mass: 245.68 67-162/88-224 g LV Mass Index: 99.07 43-95/49-115 g/m2 LVOT Diam: 2.30 3.0+(-)1.3 cm 2D Systolic Function EF 4C: 56.50 >55% EF 2C: 53.20 >55% EF BiP: 55.70 >55% Mitral Valve MV Pk E: 0.70 MV PK A: 0.57 MV Decel Time: 157.00 E/A: 1.20 E'Lateral: 11.60 E'Medial: 9.46 E/E' Med: 7.40 E/E' Lat: 6.10 PHT: 46.00 MVA PHT: 4.78 Decel Esmeralda: 4.48 Aortic Valve AoV Pk Santos: 1.21 AoV Mn Santos: 0.89 AoV VTI: 0.21 AoV Pk Grad: 6.00 Aov Mn Grad: 3.00 VANESSA Cont.VTI: 3.85 LVOT LVOT Pk Santos: 1.02 LVOT Mn Santos: 0.86 LVOT VTI: 0.19 LVOT Pk Grad: 4.00 LVOT Mn Grad: 3.00 LVOT Diam: 2.30 LVOT Area: 4.15 Diastolic Function MV Pk E: 0.70 MV Pk A: 0.57 E/A: 1.20 E'Medial: 9.46 E/E' Med: 7.40 E' Laterial: 11.60 E/E' Lat: 6.10 Right Ventricle TAPSE (mm): 3.05 TVS' Santos: 13.30 Tricuspid Valve TR Pk Santos: 1.62 TR Pk Grad: 10.00 Great Vessels Aorta Ao Root-2D: 3.30 2.0-3.7 cm Ao Asc: 2.70 2.1-3.4 cm Ao Arch: 2.50 Updated in Other Vendor System with Status of Final Vincent Mijares MD electronically signed on 08/19/2021 5:06:44 PM with status of Final
== END 2021-08-18 10:37 | disposition home or self-care (01) ==
LOC: HO.LAB 10:36
PROVIDERS: PCP Internal Medicine; Referring Provider Internal Medicine; Visit Provider Internal Medicine
DX: R07.2 Precordial pain (principal); I10 Essential (primary) hypertension; R94.31 Abnormal electrocardiogram [ECG] [EKG]; E11.8 Type 2 diabetes mellitus with unspecified complications; Z79.899 Other long term (current) drug therapy
CPT/HCPCS: 36415; 85610; 87635; 93005; 93306; 99202

== ENCOUNTER → 2021-08-19 13:56 | Outpatient (REF) | payer OTHER, SELFPAY | LOC: HO.CARD 13:56 | PROVIDERS: PCP Internal Medicine; Visit Provider Internal Medicine | DX: R07.2 Precordial pain (principal) | CPT/HCPCS: Q9957 ==

== ENCOUNTER → 2021-08-31 13:06 | Outpatient (BNVA) | payer OTHER, SELFPAY | PROVIDERS: PCP Internal Medicine; Referring Provider Internal Medicine; Visit Provider Nurse Practitioner Family | DX: R07.2 Precordial pain (principal); R94.31 Abnormal electrocardiogram [ECG] [EKG]; I10 Essential (primary) hypertension | CPT/HCPCS: 99212 ==

== ENCOUNTER 2021-10-07 09:51 | Outpatient (REF) | payer OTHER, SELFPAY ==
--- NOTE | 2021-10-07 09:54 | EMG_ITS ---
This is a 36-year-old man who gives a vague history of inability to use the left upper extremity with weakness and numbness in the last 2 or 3 months. He has had type 1 diabetes, recently on insulin. PHYSICAL EXAMINATION: On examination, there is no atrophy or weakness in any of the muscles. Reflexes symmetrical. There is voluntary hypo performance on muscle testing. IMPRESSION: Rule out nerve entrapment, rule out cervical radiculopathy, rule out functional disorder. Nerve conduction EMG study: Normal electrodiagnostic study of the left upper extremity with no evidence of carpal tunnel syndrome, nerve entrapment, or cervical radiculopathy. EMG of the left C5-T1 innervated muscles shows reduced voluntary effort, but otherwise no evidence of neuropathic process. MD GUILLERMINA Cordova/JOSE L / [phone]
== END 2021-10-07 09:52 | disposition home or self-care (01) ==
LOC: HO.NEURO 09:51
PROVIDERS: Visit Provider Internal Medicine
DX: R20.2 Paresthesia of skin (principal)
CPT/HCPCS: 95885; 95910

== ENCOUNTER 2022-09-29 11:15 | Outpatient (REF) | payer OTHER, SELFPAY ==
[2022-09-29 11:27] LABS: MANUAL DIFF FLAG NO
[2022-09-29 12:15] LABS: Basophils Absolute Auto 0.1 X10*3/uL (0.0-0.2); Basophils Percent Auto 0.5 % (0-2); Eosinophils Absolute Auto 0.1 X10*3/uL (0.0-0.4); Eosinophils Percent Auto 1.1 % (0-4); Hematocrit 48.2 % (42.0-52.0); Hemoglobin 15.3 g/dl (14.0-18.0); Imm Gran Abs Auto 0.03 X10*3/uL (0.00-0.03); Imm Gran Pct Auto 0.2 % (0.0-0.4); Lymphocytes Percent Auto 24.7 % (20-40); Mean Corpuscular HGB Conc 31.7 g/dl (31.0-36.0); Mean Corpuscular Hemoglobin 25.4 pg (27.0-33.0); Mean Corpuscular Volume 80.1 fL (80.0-98.0); Mean Platelet Volume 10.7 fL (9.4-12.4); Monocytes Absolute Auto 1.1 X10*3/uL (0.1-1.2); Monocytes Percent Auto 8.7 % (2-11); Neutrophils Absolute Auto 7.9 x10*3/uL (2.0-8.3); Neutrophils Percent Auto 64.8 % (45-73); Platelet Count 341 X10*3/uL (160-400); Red Blood Count 6.02 X10*6/uL (4.60-5.80); Red Cell Distribution Width 14.8 % (11.0-16.0); White Blood Count 12.3 X10*3/uL (4.8-10.8)
[2022-09-29 12:31] LABS: Estimated Average Glucose 166 mg/dL; Hemoglobin A1c % 7.4 %
[2022-09-29 13:12] LABS: Alanine Aminotransferase 32 U/L (0-40); Albumin Level 4.4 g/dL (3.5-5.0); Alkaline Phosphatase 65 U/L (39-117); Anion Gap 17 (12-20); Aspartate Amino Transferase 17 U/L (5-37); Bilirubin Total 0.8 mg/dL (0.0-1.0); Blood Urea Nitrogen 11 mg/dL (9-16); Calcium 9.9 mg/dL (8.4-10.2); Carbon Dioxide 19 mmol/L (22-29); Chloride 107 mmol/L (96-108); Cholesterol 169 mg/dL; Estimated Glomerular Filt Rate > 60; Glucose Fasting 185 mg/dL (60-99); HDL Cholesterol 39 mg/dL; LDL Cholesterol Calculated 103 mg/dl; Potassium 4.2 mmol/L (3.3-5.1); Sodium 139 mmol/L (135-145); Total Protein 7.4 g/dL (6.5-8.0); Triglycerides 136 mg/dL
[2022-09-29 13:49] LABS: TSH reflex Free T4 1.06 uIU/mL (0.32-4.0)
[2022-09-29 14:03] LABS: Appearance Urine Cloudy; Color Urine Dark Yellow; Glucose Urine UA Negative (Negative); Leukocyte Esterase Urine Trace (Negative); Nitrite Urine Negative (Negative); PH 5.5 (5.0-9.0); UMIC TRIGGER UACC YES; Urine Blood Negative (Negative); Urine Ketones Trace mg/dL (Negative); Urine Protein 100 (2+) mg/dL (Neg-Trace)
[2022-09-29 14:22] LABS: Vitamin D 25-OH Total 8.5 ng/mL (>30)
[2022-09-29 14:24] LABS: Bacteria Urine None Seen (None Seen); Granular Casts Urine Present; Hyaline Casts Urine >20 /LPF (0-2); RBC Urine 0-2 /HPF (0-2); UACC Culture Trigger YES
[2022-09-29 14:43] LABS: Creatinine Urine 354.14 mg/dL
[2022-09-29 15:03] LABS: Microalbum/Creatinine Ratio Ur 215.1 ug/mg cr
== END 2022-09-29 11:16 | disposition home or self-care (01) ==
LOC: HO.LAB 11:15
PROVIDERS: PCP Internal Medicine; Visit Provider Internal Medicine
DX: E78.00 Pure hypercholesterolemia, unspecified (principal); I10 Essential (primary) hypertension; E55.9 Vitamin D deficiency, unspecified; E11.9 Type 2 diabetes mellitus without complications
CPT/HCPCS: 36415; 80053; 80061; 81001; 81003; 82043; 82306; 83036; 84443; 85025; 87086

== ENCOUNTER 2023-03-22 14:07 | Outpatient (REF) | payer OTHER, SELFPAY ==
[2023-03-22 14:24] LABS: MANUAL DIFF FLAG NO
[2023-03-22 14:46] LABS: Basophils Absolute Auto 0.1 X10*3/uL (0.0-0.2); Basophils Percent Auto 0.7 % (0-2); Eosinophils Absolute Auto 0.2 X10*3/uL (0.0-0.4); Hematocrit 45.9 % (42.0-52.0); Hemoglobin 14.7 g/dl (14.0-18.0); Imm Gran Abs Auto 0.05 X10*3/uL (0.00-0.03); Imm Gran Pct Auto 0.4 % (0.0-0.4); Lymphocytes Absolute Auto 2.5 X10*3/uL (1.2-4.9); Lymphocytes Percent Auto 22.1 % (20-40); Mean Corpuscular Volume 78.1 fL (80.0-98.0); Mean Platelet Volume 10.4 fL (9.4-12.4); Monocytes Absolute Auto 0.8 X10*3/uL (0.1-1.2); Monocytes Percent Auto 6.6 % (2-11); Neutrophils Absolute Auto 7.7 x10*3/uL (2.0-8.3); Neutrophils Percent Auto 68.2 % (45-73); Platelet Count 355 X10*3/uL (160-400); Red Blood Count 5.88 X10*6/uL (4.60-5.80); Red Cell Distribution Width 15.5 % (11.0-16.0); White Blood Count 11.3 X10*3/uL (4.8-10.8)
[2023-03-22 15:18] LABS: Estimated Average Glucose 148 mg/dL; Hemoglobin A1c % 6.8 %
[2023-03-22 15:32] LABS: Appearance Urine Clear; Color Urine Yellow; Glucose Urine UA Negative (Negative); Leukocyte Esterase Urine Negative (Negative); Nitrite Urine Negative (Negative); PH 5.5 (5.0-9.0); Specific Gravity - Urine >= 1.030 (1.005-1.025); UMIC TRIGGER UACC YES; Urine Blood Negative (Negative); Urine Ketones Trace mg/dL (Negative); Urine Protein 30 (1+) mg/dL (Neg-Trace)
[2023-03-22 15:57] LABS: Bacteria Urine None Seen (None Seen); Granular Casts Urine Present; Squamous Epithelial Cell Urine 0-2 /HPF (0-2); WBC Urine 0-5 /HPF (0-5)
[2023-03-22 17:53] LABS: Microalbum/Creatinine Ratio Ur 40.3 ug/mg cr
[2023-03-22 18:01] LABS: Alanine Aminotransferase 23 U/L (0-40); Albumin Level 4.4 g/dL (3.5-5.0); Alkaline Phosphatase 64 U/L (39-117); Anion Gap 15 (12-20); Aspartate Amino Transferase 16 U/L (5-37); Bilirubin Total 0.5 mg/dL (0.0-1.0); Blood Urea Nitrogen 14 mg/dL (9-16); Calcium 10.1 mg/dL (8.4-10.2); Carbon Dioxide 23 mmol/L (22-29); Chloride 108 mmol/L (96-108); Cholesterol 177 mg/dL; Estimated Glomerular Filt Rate > 60; Glucose Fasting 131 mg/dL (60-99); HDL Cholesterol 49 mg/dL; LDL Cholesterol Calculated 114 mg/dl; Potassium 3.9 mmol/L (3.3-5.1); Sodium 142 mmol/L (135-145); Total Protein 7.6 g/dL (6.5-8.0); Triglycerides 73 mg/dL
[2023-03-22 18:19] LABS: TSH reflex Free T4 1.13 uIU/mL (0.32-4.0); Vitamin D 25-OH Total 31.3 ng/mL (>30)
== END 2023-03-22 14:08 | disposition home or self-care (01) ==
LOC: HO.LAB 14:07
PROVIDERS: PCP Internal Medicine; Visit Provider Internal Medicine
DX: E78.00 Pure hypercholesterolemia, unspecified (principal); E11.9 Type 2 diabetes mellitus without complications; E55.9 Vitamin D deficiency, unspecified; I10 Essential (primary) hypertension
CPT/HCPCS: 36415; 80053; 80061; 81001; 82043; 82306; 83036; 84443; 85025

== ENCOUNTER → 2023-04-22 12:56 | Outpatient (AMB) | payer OTHER, SELFPAY ==
[2023-04-22 12:57] VITALS: BP 110/80; PULSE 109; O2SAT 96; BMI 40.7
--- NOTE | 2023-04-22 12:57 | A.OFFPC_ITS ---
Vital Signs 04/22/23 12:57 Height 6 ft Weight 300 lb 4 oz BMI 40.7 BP 110/80 Blood Pressure Location Lt brachial Position Sitting Pulse 109 H Pulse Source Pulse Oximeter Pulse Oximetry (%) 96 Oxygen Delivery Method Room Air Intake Visit Reasons: PE Csm Consultant Required: No Accompanied by: Self / Same As Patient Allergies No Known Allergies [No Known Allergies*] Allergy (Verified 04/22/23 13:19) Medication List - Last Reconciled 04/22/23 by Alexys Ellis MD amlodipine 10 mg PO DAILY blood sugar diagnostic (FreeStyle Lite Strips) 1 strip miscellaneous QID bupropion HCl 75 mg PO QAM cholecalciferol (vitamin D3) 50 mcg PO DAILY 90 days clonazepam 0.5 mg PO BID PRN dulaglutide (Trulicity) 3 mg subcut QWEEK flash glucose scanning reader ([employer]Style Claus 2 [place]) As directed flash glucose sensor (FreeStyle Claus 2 Sensor kit) As directed gabapentin 1,200 mg PO BID insulin degludec (Tresiba FlexTouch U-200 insulin) 90 units subcut DAILY insulin lispro (Humalog KwikPen (U-100) Insulin) 25 units with breakfast, 25 units with lunch and 30 units with dinner subcutaneously 3 times a day; lancets (Lancets,Ultra Thin) As directed QID lisinopril 10 mg PO DAILY metformin 1,000 mg (2 x 500 mg) PO BID oxcarbazepine 300 mg PO DAILY oxcarbazepine 900 mg PO BEDTIME pen needle, diabetic 4 times daily sertraline (Zoloft) 200 mg PO DAILY topiramate (Topamax) 25 mg PO BID trazodone 200 mg PO BEDTIME PRN Tobacco use date assessed: 04/22/23 Dental Screening Dental Screen Date: 04/22/23 Did you have a dental visit in the last 12 months?: Yes Did you have a dental problem in the last 6 months where you did not have access to dental care?: No Was dental information given to patient?: Patient has dentist HPI PE HPI Details Patient comes in today for his annual physical examination States that he feels okay He denies any headaches or dizziness Denies any chest pains, no increased SOB No nausea/vomiting, no abdominal pain No change in bowel habits noted Denies any acute urinary symptoms Needs some of his Rx refilled Had his follow up labs done last month - to discuss his results [facility] Medical History Bipolar illness Borderline hypercholesterolemia DM (diabetes mellitus) type II uncontrolled with eye manifestation Essential hypertension Generalized anxiety disorder Tear meniscus knee Type 2 diabetes mellitus with hyperglycemia Surgical History History of right knee surgery Hx of left knee surgery Family History Other Mental problem Social History Household Members: None Housing: Apartment Do you presently have visiting nurse or other home services: No (NETWORK SUPPORT 3X A WEEK) Alcohol intake: never Patient Tobacco Use Status: Never used Tobacco e-Cigarette/Vaping Use: Never Used Second Hand Smoke Exposure: Yes service: No Current occupational status: disabled Cognitive needs: No Hearing needs: No Vision needs: Yes (Glasses) Questionnaire PHQ-9 Over the last 2 weeks, how often have you been bothered by any of the following problems? 1. Little interest or pleasure in doing things: not at all 2. Feeling down, depressed, or hopeless: not at all 3. Trouble falling or staying asleep, or sleeping too much: not at all 4. Feeling tired or having little energy: not at all 5. Poor appetite or overeating: not at all 6. Feeling bad about yourself - or that you are a failure or have let yourself or your family down: not at all 7. Trouble concentrating on things, such as reading the newspaper or watching television: not at all 8. Moving or speaking so slowly that other people could have noticed. Or the opposite - being so fidgety or restless that you have been moving around a lot more than usual: not at all 9. Thoughts that you would be better off or of hurting yourself in some way: not at all Total score: 0 Depression Screening Interpretation: Negative (is on Rx) 25407 - PHQ-9 Billing: Yes Source: Developed by Drs. Kali Jay, Cassandra Gonzalez, Doron Faustin and colleagues, with an educational holly from [employer]. Thrive Questionnaire Date Thrive assessed: 04/22/23 I am a: Patient What is your living situation today?: I have a steady place to live Within the past 12 months, did the food you bought not last and you didn't have the money to get more?: Never true Within the past 12 months, did you worry whether your food would run out before you got money to buy more?: Never true Do you have trouble paying for medicines?: No Do you have trouble getting transportation to medical appointments?: No Do you have trouble paying your heating and electricity bill?: No Do you have trouble taking care of your child, family member or friend?: No Do you have trouble with day-to-day activities such as bathing, preparing meals, shopping, managing finances, etc.?: No Are you currently unemployed and looking for a job?: No Are you interested in more education?: No Please select the resources that you would like help with: None Currently or been in a relationship where the following occur: no concerns reported AUDIT C Alcohol Use Questionnaire (AUDIT-C) 1. How often do you have a drink containing alcohol?: Never 3. How often do you have six or more drinks on one occasion?: Never Total Score: 0 Score Reviewed/Action Taken: Yes LORNA-7 AMB Questionnaire LORNA-7 Date LORNA - 7 assessed: 04/22/23 Feeling nervous, anxious, or on edge: 0 = Not at all Not being able to stop or control worryin = Not at all Worrying too much about different things: 0 = Not at all Trouble relaxin = Not at all Being so restless that it is hard to sit still: 0 = Not at all Becoming easily annoyed or irritable: 0 = Not at all Feeling afraid as if something awful might happen: 0 = Not at all Total LORNA-7 score (0-4 normal; 5-9 mild; 10-14 moderate; 15-21 severe): 0 Source: Developed by Drs. Kali Jay, Cassandra Gonzalez, Doron Faustin and colleagues, with an educational holly from [employer]. Review of Systems Const Denies chills, Denies fatigue, Denies fever(s), Denies headache(s), Denies malaise and Denies weakness Eyes Denies blurry vision, Denies change in vision, Denies irritation and Denies itchy eyes ENT Denies dysphagia, Denies dizziness, Denies otalgia, Denies headache(s), Denies nasal congestion, Denies neck pain, Denies odynophagia and Denies sore throat Card Denies chest pain, Denies rapid heart rate, Denies irregular heart rhythm, Denies palpitations and Denies dyspnea Resp Denies chest congestion, Denies cough, Denies dyspnea and Denies wheezing GI Denies abdominal pain, Denies bloating, Denies constipation, Denies dysphagia, Denies heartburn, Denies diarrhea, Denies nausea, Denies odynophagia and Denies vomiting Denies hematuria, Denies difficulty urinating, Denies dysuria, Denies urinary frequency and Denies urinary urgency Musc Denies back pain, Denies arthralgias, Denies joint swelling, Denies muscle weakness and Denies neck pain Skin/Breast Denies change in pigmentation, Denies lesions, Denies rash and Denies unusual bruising Neuro Denies dizziness, Denies headache(s), Denies paresthesias and Denies weakness Endo Denies fatigue and Denies palpitations Aller/Immun Denies itchy eyes and Denies wheezing Physical exam (Primary Care) Vital Signs: Last Vital Signs Pulse 109 H 04/22/23 12:57 BP 110/80 04/22/23 12:57 Pulse Ox 96 04/22/23 12:57 Oxygen Delivery Method Room Air 04/22/23 12:57 BMI result Body Mass Index 40.7 Tobacco/Smoking Status: Tobacco use Status Tobacco use date assessed 04/22/23 04/22/23 13:06 Patient Tobacco Use Status Never used Tobacco 04/22/23 13:06 e-Cigarette/Vaping Use Never Used 04/22/23 13:06 PHQ-9: PHQ-9 Score PHQ-9: Total score 0 04/22/23 13:21 Depression Screening Interpretation: Negative (is on Rx) Thrive Assessment: Date of Thrive Assessment Date Thrive assessed 04/22/23 04/22/23 13:06 Currently or been in a relationship where the following occur: no concerns reported Const General: no acute distress, alert and awake Orientation/consciousness: patient oriented x3 HENMT Head: Yes normocephalic and Yes atraumatic Ears: external ears normal, TM's normal bilaterally and EAC's normal General nose exam: No nasal discharge present Face and sinus: Yes normal facial exam and Yes sinuses nontender Teeth and gingiva: dentition normal Throat: Yes posterior oropharynx normal and Yes tonsils normal (no TP congestion) Eyes Eyelids: Yes eyelids normal Conjunctivae: conjunctivae normal Pupils: Equal, round and reactive pupils present EOM: EOMs intact bilaterally Neck Neck: Yes no lymphadenopathy and Yes supple Thyroid: Thyroid normal Resp Auscultation: clear to auscultation bilaterally, no rales and no wheezes Cardio Rate: regular rate Rhythm: regular rhythm Heart sounds: no murmurs GI Palpation (GI): Soft to palpation, nontender and No hepatosplenomegaly present Auscultation: normal bowel sounds General: Yes no CVA tenderness Back/Spine/Pelvis Back: no CVA tenderness Thoracic/Lumbar Spine: thoracic and lumbar spine normal to inspection Skin Lesions: no lesions Rashes: no rashes Neuro General: patient oriented x3, moves all extremities, no focal motor deficits and CN's II-XI intact bilaterally Cranial nerves: Yes Equal, round and reactive pupils present Cognition (Neuro): normal cognition Gait exam (Neuro): Normal gait present Extrem General: Yes no clubbing, cyanosis or edema Results Reviewed Results Reviewed: Laboratory Tests 03/22/23 03/22/23 03/22/23 14:23 14:23 14:23 WBC 11.3 H Hgb 14.7 Hct 45.9 Plt Count 355 Sodium 142 Potassium 3.9 Creatinine 0.82 Estimated GFR > 60 Fasting Glucose 131 H Hemoglobin A1c % 6.8 Calcium 10.1 AST 16 ALT 23 Triglycerides 73 Cholesterol 177 LDL Cholesterol, Calc 114 HDL Cholesterol 49 25-OH Vitamin D Total 31.3 TSH 1.13 Ur Specific [place] Urine Protein Urine Glucose (UA) Urine Blood Microalb/Creat Ratio 03/22/23 03/22/23 14:23 14:50 WBC Hgb Hct Plt Count Sodium Potassium Creatinine Estimated GFR Fasting Glucose Hemoglobin A1c % Calcium AST ALT Triglycerides Cholesterol LDL Cholesterol, Calc HDL Cholesterol 25-OH Vitamin D Total TSH Ur Specific [place] >= 1.030 H Urine Protein 30 (1+) H Urine Glucose (UA) Negative Urine Blood Negative Microalb/Creat Ratio 40.3 Assessment and Plan Assessment & Plan (1) Annual physical exam: Code(s): Z00.00 - Encounter for general adult medical examination without abnormal findings Plan: Results of his labs done last month reviewed and discussed with patient Advised that his cholesterol numbers are still normal on his recent labs but they have gone up slightly from before and that if they do not improve over the next few months, we may need to consider starting him on some statins Have discussed that starting on statins is currently recommended as guidelines in the management of diabetes irregardless of one's actual cholesterol numbers (2) Diabetes mellitus: Comment: S/P DKA & LAURIE in 03/2021 Code(s): E11.9 - Type 2 diabetes mellitus without complications Qualifiers: Diabetes mellitus type: type 2 Diabetes mellitus nursing home insulin use: with nursing home use Diabetes mellitus complication status: with hyperglycemia Qualified Code(s): E11.65 - Type 2 diabetes mellitus with hyperglycemia; Z79.4 - 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 Plan: [place] [facility] [place] was at 6.8% but his test done at [facility] around the same time came out at 7.2% (in-office HgbA1c was at 6.3% a few months ago) - goal is at least <7.0% and ideally <6.5% Reinforced diabetic diet Continue Tresiba 90 units Q HS, Humalog 25 units with breakfast, 25 units with lunch and 30 units with dinner, Metformin 1000 mg BID and Trulicity 3 mg SQ once a week He reportedly has been taking his Trulicity only at 1.5 mg weekly for the past few months as the 3 mg dose has been unavailable at the pharmacy until recently - states that this is reportedly the main reason why he gained weight and his glycemic control got worse lately Will recheck his labs in 3 months for follow up Follow up with endocrinology (Dr. Rivera) as scheduled (3) Benign essential hypertension: Code(s): I10 - Essential (primary) hypertension Plan: Reinforced low sodium diet - goal is systolic BP of 120 mm or less Continue Amlodipine 10 mg QD and Lisinopril 10 mg QD (dose was increased by Dr. Rivera last month) (4) Exertional chest pain: Code(s): R07.9 - Chest pain, unspecified Plan: Symptoms have been stable with no recurrence lately Stress testing done back in July 2021 showed EKG changes consistent with inferolateral ischemia Patient eventually underwent cardiac cath that showed normal coronaries He was advised to continue with aggressive risk factor reduction (5) Insomnia: Code(s): G47.00 - Insomnia, unspecified Qualifiers: Insomnia type: unspecified Qualified Code(s): G47.00 - Insomnia, unspecified Plan: Sleep hygiene reinforced Continue Trazodone 200 mg QHS PRN (6) Anxiety: Code(s): F41.9 - Anxiety disorder, unspecified Plan: Continue Clonazepam 0.5 mg twice a day as needed (7) Bipolar disorder: Code(s): F31.9 - Bipolar disorder, unspecified Qualifiers: Active/Remission status: currently active Current bipolar episode type: mixed Current episode severity: unspecified Qualified Code(s): F31.60 - Bipolar disorder, current episode mixed, unspecified Plan: Continue Sertraline 200 mg once a day, Oxcarbazepine 300 mg daily in AM and 900 mg daily at bedtime, Bupropion 75 mg once a day in AM, Topiramate 25 mg twice a day and Gabapentin 1200 mg twice a day PRN Follow-up with Psychiatry as scheduled (8) Obesity (BMI 30-39.9): Code(s): E66.9 - Obesity, unspecified Plan: Reinforced diet/exercise as tolerated/lose weight Plan Follow up in 3 months Orders: Orders Complete Blood Count Auto Diff 3 Months I10 - Essential (primary) hypertension Comprehensive Sandwich. Panel Fast 3 Months E78.00 - Pure hypercholesterolemia, unspecified Lipid Panel 3 Months E78.00 - Pure hypercholesterolemia, unspecified TSH reflex Free T4 3 Months E78.00 - Pure hypercholesterolemia, unspecified UA CC w/rflx Micro + Cult 3 Months R30.0 - Dysuria Microalbumin, Random (w Creat) 3 Months E11.9 - Type 2 diabetes mellitus without complications Vitamin D 25-OH Total 3 Months E55.9 - Vitamin D deficiency, unspecified Hemoglobin A1c 3 Months E11.9 - Type 2 diabetes mellitus without complications Medications: Changed From gabapentin 1,200 mg PO BID To gabapentin 1,200 mg PO BID PRN Refilled amlodipine 10 mg PO DAILY 90 tabs 1RF I10 - Essential (primary) hypertension cholecalciferol (vitamin D3) 50 mcg PO DAILY 90 days 90 caps 3RF E55.9 - Vitamin D deficiency, unspecified Coding Level of Care Code Est Pt Prev Care [id number]) Diagnoses Annual physical exam Z00.00 Diabetes mellitus E11.65; Z79.4 Diabetes mellitus type: type 2 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
== END ==
PROVIDERS: PCP Internal Medicine; Visit Provider Internal Medicine
DX: Z00.00 Encounter for general adult medical examination without abnormal findings (principal); E11.65 Type 2 diabetes mellitus with hyperglycemia; Z79.4 Long term (current) use of insulin; F41.9 Anxiety disorder, unspecified; I10 Essential (primary) hypertension; R07.9 Chest pain, unspecified; G47.00 Insomnia, unspecified; F31.60 Bipolar disorder, current episode mixed, unspecified; E66.9 Obesity, unspecified
CPT/HCPCS: 99395

== ENCOUNTER 2023-07-28 10:02 | Outpatient (AMB) | payer OTHER, SELFPAY ==
[2023-07-28 10:02] VITALS: BP 130/80; PULSE 98; O2SAT 97; BMI 38.5
--- NOTE | 2023-07-28 10:02 | MHC.PC.OV ---
Vital Signs 07/28/23 10:02 Height 6 ft Weight 284 lb 4 oz BMI 38.5 BP 130/80 Blood Pressure Location Lt brachial Position Sitting Pulse 98 Pulse Source Pulse Oximeter Pulse Oximetry (%) 97 Oxygen Delivery Method Room Air Intake Visit Reasons: 3 month f/u Installation Technician Required: No Accompanied by: Self / Same As Patient Allergies No Known Allergies [No Known Allergies*] Allergy (Verified 07/28/23 10:41) Medication List - Last Reconciled 07/28/23 by Alexys Ellis MD amlodipine 10 mg PO DAILY blood sugar diagnostic (FreeStyle Lite Strips) 1 strip miscellaneous QID bupropion HCl 75 mg PO QAM cholecalciferol (vitamin D3) 50 mcg PO DAILY 90 days clonazepam 0.5 mg PO BID PRN dulaglutide (Trulicity) 4.5 mg subcut QWEEK flash glucose scanning reader (BrencoStyle Claus 2 [place]) As directed flash glucose sensor (FreeStyle Claus 2 Sensor kit) As directed gabapentin 1,200 mg PO BID PRN insulin degludec (Tresiba FlexTouch U-200 insulin) 70 units subcut DAILY insulin lispro (Humalog KwikPen (U-100) Insulin) 25 units with breakfast, 25 units with lunch and 30 units with dinner subcutaneously 3 times a day; lancets (Lancets,Ultra Thin) As directed QID lisinopril 10 mg PO DAILY metformin 1,000 mg (2 x 500 mg) PO BID oxcarbazepine 300 mg PO DAILY oxcarbazepine 900 mg PO BEDTIME pen needle, diabetic 4 times daily sertraline (Zoloft) 200 mg PO DAILY topiramate (Topamax) 25 mg PO BID trazodone 200 mg PO BEDTIME PRN Tobacco use date assessed: 07/28/23 Dental Screening Dental Screen Date: 07/28/23 Did you have a dental visit in the last 12 months?: Yes Did you have a dental problem in the last 6 months where you did not have access to dental care?: No Was dental information given to patient?: Patient has dentist HPI 3 month f/u HPI Details Patient comes in today for his follow up visit States that he feels okay He denies any headaches or dizziness Denies any chest pains, still has occasional SOB with exertion, especially when he is trying to work out, but states that these are mostly mild and tends to last only briefly No nausea/vomiting, no abdominal pain No change in bowel habits noted He continues to follow up with Dr. Rivera for his diabetes and states that Dr. Rivera change the dose on a couple of his medications a while back - he is now on Trulicity at 4.5 mg once a week and his Tresiba was cut down to 70 units QD Did not get his follow up labs done recently; states that he is due to get some labs done for Dr. Rivera prior to his upcoming visit with him and he can get all of his preordered labs done at the same time Would also like to get a flu shot today [facility] Medical History Type 2 diabetes mellitus with hyperglycemia Generalized anxiety disorder Borderline hypercholesterolemia Essential hypertension DM (diabetes mellitus) type II uncontrolled with eye manifestation Bipolar illness Tear meniscus knee Surgical History History of right knee surgery Hx of left knee surgery Family History Other Mental problem Social History Household Members: None Housing: Apartment Do you presently have visiting nurse or other home services: No (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 1. Little interest or pleasure in doing things: not at all 2. Feeling down, depressed, or hopeless: not at all 3. Trouble falling or staying asleep, or sleeping too much: not at all 4. Feeling tired or having little energy: not at all 5. Poor appetite or overeating: not at all 6. Feeling bad about yourself - or that you are a failure or have let yourself or your family down: not at all 7. Trouble concentrating on things, such as reading the newspaper or watching television: not at all 8. Moving or speaking so slowly that other people could have noticed. Or the opposite - being so fidgety or restless that you have been moving around a lot more than usual: not at all 9. Thoughts that you would be better off or of hurting yourself in some way: not at all Total score: 0 Depression Screening Interpretation: Negative (is on Rx) Depression Screening Done: Yes 28416 - PHQ-9 Billing: Yes Source: Developed by Drs. Kali Jay, Cassandra Gonzalez, Doron Faustin and colleagues, with an educational holly from [employer]. Thrive Questionnaire Date Thrive assessed: 07/28/23 I am a: Patient What is your living situation today?: I have a steady place to live Within the past 12 months, did the food you bought not last and you didn't have the money to get more?: Never true Within the past 12 months, did you worry whether your food would run out before you got money to buy more?: Never true Do you have trouble paying for medicines?: No Do you have trouble getting transportation to medical appointments?: No Do you have trouble paying your heating and electricity bill?: No Do you have trouble taking care of your child, family member or friend?: No Do you have trouble with day-to-day activities such as bathing, preparing meals, shopping, managing finances, etc.?: No Are you currently unemployed and looking for a job?: No Are you interested in more education?: No Please select the resources that you would like help with: None Currently or been in a relationship where the following occur: no concerns reported AUDIT C Alcohol Use Questionnaire (AUDIT-C) 1. How often do you have a drink containing alcohol?: Never 3. How often do you have six or more drinks on one occasion?: Never Total Score: 0 Score Reviewed/Action Taken: Yes LORNA-7 AMB Questionnaire LORNA-7 Date LORNA - 7 assessed: 07/28/23 Feeling nervous, anxious, or on edge: 0 = Not at all Not being able to stop or control worryin = Not at all Worrying too much about different things: 0 = Not at all Trouble relaxin = Not at all Being so restless that it is hard to sit still: 0 = Not at all Becoming easily annoyed or irritable: 0 = Not at all Feeling afraid as if something awful might happen: 0 = Not at all Total LORNA-7 score (0-4 normal; 5-9 mild; 10-14 moderate; 15-21 severe): 0 Source: Developed by Drs. Kali Jay, Cassandra Gonzalez, Doron Faustin and colleagues, with an educational holly from [employer]. Review of Systems Const Denies chills, Denies fatigue, Denies fever(s) and Denies headache(s) ENT Denies dysphagia, Denies dizziness, Denies otalgia, Denies headache(s), Denies odynophagia and Denies sore throat Card Denies chest pain, Denies rapid heart rate, Denies palpitations and Denies dyspnea Resp Denies cough and Denies dyspnea GI Denies abdominal pain, Denies constipation, Denies dysphagia, Denies heartburn, Denies diarrhea, Denies nausea, Denies odynophagia and Denies vomiting Denies difficulty urinating, Denies nocturia and Denies urinary frequency Musc Denies back pain and Denies arthralgias Skin/Breast Denies rash Neuro Denies dizziness and Denies headache(s) Endo Denies fatigue and Denies palpitations Physical exam (Primary Care) Vital Signs: Last Vital Signs Pulse 98 07/28/23 10:02 BP 130/80 07/28/23 10:02 Pulse Ox 97 07/28/23 10:02 Oxygen Delivery Method Room Air 07/28/23 10:02 BMI result Body Mass Index 38.5 Tobacco/Smoking Status: Tobacco use Status Tobacco use date assessed 07/28/23 07/28/23 10:09 Patient Tobacco Use Status Never used Tobacco 07/28/23 10:09 e-Cigarette/Vaping Use Never Used 07/28/23 10:09 PHQ-9: PHQ-9 Score PHQ-9: Total score 0 07/28/23 10:44 Depression Screening Interpretation: Negative (is on Rx) Thrive Assessment: Date of Thrive Assessment Date Thrive assessed 07/28/23 07/28/23 10:09 Currently or been in a relationship where the following occur: no concerns reported Const General: no acute distress and alert HENMT Ears: TM's normal bilaterally and EAC's normal Throat: Yes posterior oropharynx normal and Yes tonsils normal (no TP congestion) Neck Neck: Yes no lymphadenopathy and Yes supple Resp Auscultation: clear to auscultation bilaterally, no rales and no wheezes Cardio Rate: regular rate Rhythm: regular rhythm Heart sounds: no murmurs GI Palpation (GI): Soft to palpation and nontender Auscultation: normal bowel sounds Skin Rashes: no rashes Extrem General: Yes no clubbing, cyanosis or edema Office Procedures Flu Questionnaire Does the patient have a severe egg allergy?: No Does the patient have severe life threatening allergies?: No Does the patient have a fever or illness today?: No Has the patient ever had Guillain-Rochester Syndrome?: No Has the patient ever had any past reaction to a flu shot?: No Immunizations flu vacc [id number] 6mos up(PF) 60 mcg(15 mcgx4)/0.5 mL IM syringe Performing Provider: Alexys Ellis MD [facility] Administered by: Fabricio Miner on 07/28/23 10:51 Dose Route Admin Location Dispensed Lot Number Expiration Date NDC Treatment Plant Mechanic 0.5 mL IM Right Deltoid 0.5 mL [id number] 03/11/24 [id number] [employer] VIS Given Date VIS Provided VIS Publication Date 07/28/23 Single Vaccine 21 Eligibility Eligibility Date Funding Source Not [facility] Eligible 07/28/23 Private Assessment and Plan Assessment & Plan (1) Diabetes mellitus: Comment: S/P DKA & LAURIE in 03/2021 Code(s): E11.9 - Type 2 diabetes mellitus without complications Qualifiers: Diabetes mellitus type: type 2 Diabetes mellitus intermodal dispatcher insulin use: with nursing home use Diabetes mellitus complication status: with hyperglycemia Qualified Code(s): E11.65 - Type 2 diabetes mellitus with hyperglycemia; Z79.4 - buttermaker continuous churn (current) use of insulin Plan: HgbA1c was at 6.8% a few months ago but his test done at [facility] labs around the same time came out at 7.2% (in-office HgbA1c was at 6.3% previous to that) - goal is at least <7.0% and ideally <6.5% Reinforced diabetic diet Continue Tresiba 70 units Q HS, Humalog 25 units with breakfast, 25 units with lunch and 30 units with dinner, Metformin 1000 mg BID and Trulicity 4.5 mg SQ once a week He is reminded to try getting his follow up labs done KATIE - lab orders are printed out and handed to patient Follow up with endocrinology (Dr. Rivera) at [facility] as scheduled Will have him recheck his labs again in 3 months for follow up (2) Benign essential hypertension: Code(s): I10 - Essential (primary) hypertension Plan: Reinforced low sodium diet - goal is systolic BP of 120 mm or less Continue Amlodipine 10 mg QD and Lisinopril 10 mg QD (3) Exertional chest pain: Code(s): R07.9 - Chest pain, unspecified Plan: Symptoms have been stable with no frequent recurrence lately, except when he tried to increase his exercise / workout load Stress testing done back in July 2021 showed EKG changes consistent with inferolateral ischemia Patient eventually underwent cardiac cath that showed normal coronaries He was advised to continue with aggressive risk factor reduction (4) Insomnia: Code(s): G47.00 - Insomnia, unspecified Qualifiers: Insomnia type: unspecified Qualified Code(s): G47.00 - Insomnia, unspecified Plan: Sleep hygiene reinforced Continue Trazodone 200 mg QHS PRN (5) Anxiety: Code(s): F41.9 - Anxiety disorder, unspecified Plan: Continue Clonazepam 0.5 mg twice a day as needed (6) Bipolar disorder: Code(s): F31.9 - Bipolar disorder, unspecified Qualifiers: Active/Remission status: currently active Current bipolar episode type: mixed Current episode severity: unspecified Qualified Code(s): F31.60 - Bipolar disorder, current episode mixed, unspecified Plan: Continue Sertraline 200 mg once a day, Oxcarbazepine 300 mg daily in AM and 900 mg daily at bedtime, Bupropion 75 mg once a day in AM, Topiramate 25 mg twice a day and Gabapentin 1200 mg twice a day PRN Follow-up with Psychiatry as scheduled (7) Obesity (BMI 30-39.9): Code(s): E66.9 - Obesity, unspecified Plan: Reinforced diet/exercise as tolerated/lose weight - he has been able to lose at least 15 pounds since his last visit, [facility] Flu vaccine given today, per request Follow up in 3 months Orders: Orders Lipid Panel 3 Months E78.00 - Pure hypercholesterolemia, unspecified Hemoglobin A1c 3 Months E11.9 - Type 2 diabetes mellitus without complications UA CC w/rflx Micro + Cult 3 Months R30.0 - Dysuria Vitamin D 25-OH Total 3 Months E55.9 - Vitamin D deficiency, unspecified Complete Blood Count Auto Diff 3 Months I10 - Essential (primary) hypertension Comprehensive Vendor. Panel Fast 3 Months E78.00 - Pure hypercholesterolemia, unspecified Microalbumin, Random (w Creat) 3 Months E11.9 - Type 2 diabetes mellitus without complications TSH reflex Free T4 3 Months E78.00 - Pure hypercholesterolemia, unspecified Influenza [id number] Immunization Today Z23 - Encounter for immunization Coding Level of Care Code Est Pt Level 4 (38396) Diagnoses Type 2 diabetes mellitus with hyperglycemia, with long-term current use of insulin E11.65; Z79.4 Diabetes mellitus type: type 2 Diabetes mellitus intermodal dispatcher insulin use: with intermodal dispatcher use Diabetes mellitus complication status: with hyperglycemia Benign essential hypertension I10 Exertional chest pain R07.9 Insomnia, unspecified type G47.00 Insomnia type: unspecified Anxiety F41.9 Bipolar affective disorder, current episode mixed, current episode severity unspecified F31.60 Active/Remission status: currently active Current bipolar episode type: mixed Current episode severity: unspecified Obesity (BMI 30-39.9) E66.9
== END 2023-07-28 10:52 | disposition home or self-care (01) ==
PROVIDERS: PCP Internal Medicine; Visit Provider Internal Medicine
DX: E11.65 Type 2 diabetes mellitus with hyperglycemia (principal); F31.60 Bipolar disorder, current episode mixed, unspecified; Z79.4 Long term (current) use of insulin; I10 Essential (primary) hypertension; Z23 Encounter for immunization; R07.9 Chest pain, unspecified; G47.00 Insomnia, unspecified; F41.9 Anxiety disorder, unspecified; E66.9 Obesity, unspecified
CPT/HCPCS: 90471; 90686; 99214

== ENCOUNTER 2023-10-21 13:53 | Outpatient (REF) | payer OTHER, SELFPAY ==
[2023-10-21 14:30] LABS: Basophils Absolute Auto 0.1 X10*3/uL (0.0-0.2); Basophils Percent Auto 0.4 % (0-2); Eosinophils Absolute Auto 0.2 X10*3/uL (0.0-0.4); Eosinophils Percent Auto 1.5 % (0-4); Hematocrit 46.6 % (42.0-52.0); Hemoglobin 15.1 g/dl (14.0-18.0); Imm Gran Abs Auto 0.03 X10*3/uL (0.00-0.03); Imm Gran Pct Auto 0.3 % (0.0-0.4); Lymphocytes Absolute Auto 3.2 X10*3/uL (1.2-4.9); MANUAL DIFF FLAG NO; Mean Corpuscular HGB Conc 32.4 g/dl (31.0-36.0); Mean Corpuscular Hemoglobin 25.1 pg (27.0-33.0); Mean Corpuscular Volume 77.4 fL (80.0-98.0); Mean Platelet Volume 10.7 fL (9.4-12.4); Monocytes Absolute Auto 0.9 X10*3/uL (0.1-1.2); Monocytes Percent Auto 7.9 % (2-11); Neutrophils Absolute Auto 7.3 x10*3/uL (2.0-8.3); Neutrophils Percent Auto 62.9 % (45-73); Platelet Count 355 X10*3/uL (160-400); Red Blood Count 6.02 X10*6/uL (4.60-5.80); Red Cell Distribution Width 15.3 % (11.0-16.0); White Blood Count 11.7 X10*3/uL (4.8-10.8)
[2023-10-21 15:34] LABS: Appearance Urine Clear; Color Urine Yellow; Glucose Urine UA Negative (Negative); Leukocyte Esterase Urine Negative (Negative); Nitrite Urine Negative (Negative); UMIC TRIGGER UACC YES; Urine Blood Negative (Negative); Urine Ketones 15 mg/dL (Negative); Urine Protein 100 (2+) mg/dL (Neg-Trace)
[2023-10-21 15:43] LABS: Bacteria Urine None Seen (None Seen); Granular Casts Urine Present; Hyaline Casts Urine >20 /LPF (0-2); RBC Urine 0-2 /HPF (0-2); WBC Urine 0-5 /HPF (0-5)
[2023-10-21 16:09] LABS: Creatinine Urine 301.28 mg/dL; Microalbum/Creatinine Ratio Ur 114.1 ug/mg cr (<30)
[2023-10-21 17:57] LABS: Alanine Aminotransferase 17 U/L (0-40); Albumin Level 4.3 g/dL (3.5-5.0); Alkaline Phosphatase 58 U/L (39-117); Anion Gap 16 (12-20); Aspartate Amino Transferase 12 U/L (5-37); Bilirubin Total 0.6 mg/dL (0.0-1.0); Blood Urea Nitrogen 8 mg/dL (9-16); Carbon Dioxide 22 mmol/L (22-29); Chloride 107 mmol/L (96-108); Cholesterol 156 mg/dL (<200); Estimated Glomerular Filt Rate > 60; Glucose Fasting 146 mg/dL (60-99); HDL Cholesterol 38 mg/dL (>40); LDL Cholesterol Calculated 87 mg/dL (<100); Sodium 141 mmol/L (135-145); Total Protein 7.6 g/dL (6.5-8.0); Triglycerides 156 mg/dL (<150)
[2023-10-21 18:11] LABS: TSH reflex Free T4 1.04 uIU/mL (0.32-4.0); Vitamin D 25-OH Total 30.5 ng/mL (>30)
[2023-10-22 06:48] LABS: Estimated Average Glucose 140 mg/dL; Hemoglobin A1c % 6.5 % (<6.0)
== END 2023-10-21 13:54 | disposition home or self-care (01) ==
LOC: HO.LAB 13:53
PROVIDERS: PCP Internal Medicine; Visit Provider Internal Medicine
DX: E78.00 Pure hypercholesterolemia, unspecified (principal); E11.9 Type 2 diabetes mellitus without complications; E55.9 Vitamin D deficiency, unspecified; I10 Essential (primary) hypertension
CPT/HCPCS: 36415; 80053; 80061; 81001; 82043; 82306; 82570; 83036; 84443; 85025

== ENCOUNTER 2023-10-31 10:51 | Outpatient (AMB) | payer OTHER, SELFPAY ==
[2023-10-31 11:09] VITALS: BP 124/82; PULSE 107; O2SAT 97; BMI 38.3
--- NOTE | 2023-10-31 11:09 | A.OFFPC_ITS ---
Vital Signs 10/31/23 11:09 Height 6 ft Weight 282 lb 8 oz BMI 38.3 BP 124/82 Blood Pressure Location Lt brachial Position Sitting Pulse 107 H Pulse Source Pulse Oximeter Pulse Oximetry (%) 97 Oxygen Delivery Method Room Air Intake Visit Reasons: DM, hyperlipidemia, anxiety, depression Strapper Operator Required: No Accompanied by: Self / Same As Patient Allergies No Known Allergies [No Known Allergies*] Allergy (Verified 10/31/23 11:47) Medication List - Last Reconciled 10/31/23 by Alexys Ellis MD amlodipine 10 mg PO DAILY blood sugar diagnostic (FreeStyle Lite Strips) 1 strip miscellaneous QID bupropion HCl 75 mg PO QAM cholecalciferol (vitamin D3) 50 mcg PO DAILY 90 days clonazepam 0.5 mg PO BID PRN dulaglutide (Trulicity) 4.5 mg subcut QWEEK flash glucose scanning reader (AVG TechnologiesStyle Claus 2 [place]) As directed flash glucose sensor (FreeStyle Claus 2 Sensor kit) As directed gabapentin 1,200 mg PO BID PRN insulin degludec (Tresiba FlexTouch U-200 insulin) 70 units subcut DAILY insulin lispro (Humalog KwikPen (U-100) Insulin) 25 units with breakfast, 25 units with lunch and 30 units with dinner subcutaneously 3 times a day; lancets (Lancets,Ultra Thin) As directed QID lisinopril 10 mg PO DAILY metformin 1,000 mg (2 x 500 mg) PO BID oxcarbazepine 300 mg PO DAILY oxcarbazepine 900 mg PO BEDTIME pen needle, diabetic 4 times daily sertraline (Zoloft) 200 mg PO DAILY topiramate (Topamax) 25 mg PO BID trazodone 200 mg PO BEDTIME PRN Tobacco use date assessed: 10/31/23 Dental Screening Dental Screen Date: 10/31/23 Did you have a dental visit in the last 12 months?: Yes Did you have a dental problem in the last 6 months where you did not have access to dental care?: No Was dental information given to patient?: Patient has dentist [facility] Medical History Type 2 diabetes mellitus with hyperglycemia Generalized anxiety disorder Borderline hypercholesterolemia Essential hypertension DM (diabetes mellitus) type II uncontrolled with eye manifestation Bipolar illness Tear meniscus knee Surgical History History of right knee surgery Hx of left knee surgery Family History Other Mental problem Social History Household Members: None Housing: Apartment Do you presently have visiting nurse or other home services: No (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 1. Little interest or pleasure in doing things: not at all 2. Feeling down, depressed, or hopeless: not at all 3. Trouble falling or staying asleep, or sleeping too much: not at all 4. Feeling tired or having little energy: not at all 5. Poor appetite or overeating: not at all 6. Feeling bad about yourself - or that you are a failure or have let yourself or your family down: not at all 7. Trouble concentrating on things, such as reading the newspaper or watching television: not at all 8. Moving or speaking so slowly that other people could have noticed. Or the opposite - being so fidgety or restless that you have been moving around a lot more than usual: not at all 9. Thoughts that you would be better off or of hurting yourself in some way: not at all Total score: 0 Depression Screening Interpretation: Negative (is on Rx) Depression Screening Done: Yes 89061 - PHQ-9 Billing: Yes Source: Developed by Drs. Kali Jay, Cassandra Gonzalez, Doron Faustin and colleagues, with an educational holly from [employer]. Thrive Questionnaire Date Thrive assessed: 10/31/23 I am a: Patient What is your living situation today?: I have a steady place to live Within the past 12 months, did the food you bought not last and you didn't have the money to get more?: Never true Within the past 12 months, did you worry whether your food would run out before you got money to buy more?: Never true Do you have trouble paying for medicines?: No Do you have trouble getting transportation to medical appointments?: No Do you have trouble paying your heating and electricity bill?: No Do you have trouble taking care of your child, family member or friend?: No Do you have trouble with day-to-day activities such as bathing, preparing meals, shopping, managing finances, etc.?: No Are you currently unemployed and looking for a job?: No Are you interested in more education?: No Please select the resources that you would like help with: None Currently or been in a relationship where the following occur: no concerns reported THRIVE Score: 0 AUDIT C Alcohol Use Questionnaire (AUDIT-C) 1. How often do you have a drink containing alcohol?: Never 3. How often do you have six or more drinks on one occasion?: Never Total Score: 0 Score Reviewed/Action Taken: Yes LORNA-7 AMB Questionnaire LORNA-7 Date LORNA - 7 assessed: 10/31/23 Feeling nervous, anxious, or on edge: 0 = Not at all Not being able to stop or control worryin = Not at all Worrying too much about different things: 0 = Not at all Trouble relaxin = Not at all Being so restless that it is hard to sit still: 0 = Not at all Becoming easily annoyed or irritable: 0 = Not at all Feeling afraid as if something awful might happen: 0 = Not at all Total LORNA-7 score (0-4 normal; 5-9 mild; 10-14 moderate; 15-21 severe): 0 Source: Developed by Drs. Kali Jay, Cassandra Gonzalez, Doron Faustin and colleagues, with an educational holly from [employer]. Physical exam (Primary Care) Vital Signs: Last Vital Signs Pulse 107 H 10/31/23 11:09 BP 124/82 10/31/23 11:09 Pulse Ox 97 10/31/23 11:09 Oxygen Delivery Method Room Air 10/31/23 11:09 BMI result Body Mass Index 38.3 Tobacco/Smoking Status: Tobacco use Status Tobacco use date assessed 10/31/23 10/31/23 11:10 Patient Tobacco Use Status Never used Tobacco 10/31/23 11:10 e-Cigarette/Vaping Use Never Used 10/31/23 11:10 PHQ-9: PHQ-9 Score PHQ-9: Total score 0 10/31/23 11:49 Depression Screening Interpretation: Negative (is on Rx) Thrive Assessment: Date of Thrive Assessment Date Thrive assessed 10/31/23 10/31/23 11:10 Currently or been in a relationship where the following occur: no concerns reported Results Reviewed Results Reviewed: Laboratory Tests 10/21/23 14:00 WBC 11.7 H Hgb 15.1 Hct 46.6 Plt Count 355 Sodium 141 Potassium 4.0 Creatinine 0.72 Estimated GFR > 60 Fasting Glucose 146 H Hemoglobin A1c % 6.5 H Calcium 10.0 AST 12 ALT 17 Triglycerides 156 H Cholesterol 156 LDL Cholesterol, Calc 87 HDL Cholesterol 38 L 25-OH Vitamin D Total 30.5 L TSH 1.04 Ur Specific [place] 1.020 Urine Protein 100 (2+) H Urine Glucose (UA) Negative Urine Blood Negative Urine Nitrite Negative Ur Leukocyte Esterase Negative Microalb/Creat Ratio 114.1 H Assessment and Plan Assessment & Plan (1) Diabetes mellitus: Comment: S/P DKA & LAURIE in 03/2021 Code(s): E11.9 - Type 2 diabetes mellitus without complications Qualifiers: Diabetes mellitus complication status: with hyperglycemia Diabetes mellitus shelter insulin use: with termite control service representative use Diabetes mellitus type: type 2 Qualified Code(s): E11.65 - Type 2 diabetes mellitus with hyperglycemia; Z79.4 - [facility] (current) use of insulin Plan: HgbA1c was at 6.8% a few months ago but his test done at [facility] labs around the same time came out at 7.2% (in-office HgbA1c was at 6.3% previous to that) - goal is at least <7.0% and ideally <6.5% Reinforced diabetic diet Continue Tresiba 70 units Q HS, Humalog 25 units with breakfast, 25 units with lunch and 30 units with dinner, Metformin 1000 mg BID and Trulicity 4.5 mg SQ once a week He is reminded to try getting his follow up labs done KATIE - lab orders are printed out and handed to patient Follow up with endocrinology (Dr. Rivera) at [facility] as scheduled Will have him recheck his labs again in 3 months for follow up (2) Benign essential hypertension: Code(s): I10 - Essential (primary) hypertension Plan: Reinforced low sodium diet - goal is systolic BP of 120 mm or less Continue Amlodipine 10 mg QD and Lisinopril 10 mg QD (3) Insomnia: Code(s): G47.00 - Insomnia, unspecified Qualifiers: Insomnia type: unspecified Qualified Code(s): G47.00 - Insomnia, unspecified Plan: Sleep hygiene reinforced Continue Trazodone 200 mg QHS PRN (4) Anxiety: Code(s): F41.9 - Anxiety disorder, unspecified Plan: Continue Clonazepam 0.5 mg twice a day as needed (5) Bipolar disorder: Code(s): F31.9 - Bipolar disorder, unspecified Qualifiers: Active/Remission status: currently active Current bipolar episode type: mixed Current episode severity: unspecified Qualified Code(s): F31.60 - Bipolar disorder, current episode mixed, unspecified Plan: Continue Sertraline 200 mg once a day, Oxcarbazepine 300 mg daily in AM and 900 mg daily at bedtime, Bupropion 75 mg once a day in AM, Topiramate 25 mg twice a day and Gabapentin 1200 mg twice a day PRN Follow-up with Psychiatry as scheduled (6) Obesity (BMI 30-39.9): Code(s): E66.9 - Obesity, unspecified Plan: Reinforced diet/exercise as tolerated/lose weight - he has been able to lose at least 15 pounds since his last visit, presumably with the help of his Trulicity Plan Follow up in 4 months Orders: Orders Hemoglobin A1c 4 Months E11.9 - Type 2 diabetes mellitus without complications Microalbumin, Random (w Creat) 4 Months E11.9 - Type 2 diabetes mellitus without complications Lipid Panel 4 Months E78.00 - Pure hypercholesterolemia, unspecified Complete Blood Count Auto Diff 4 Months D64.9 - Anemia, unspecified Comprehensive [place]. Panel Fast 4 Months E78.00 - Pure hypercholesterolemia, uns pecified Coding Level of Care Code Est Pt Level 4 (02927) Diagnoses Type 2 diabetes mellitus with hyperglycemia, with long-term current use of insulin E11.65; Z79.4 Diabetes mellitus complication status: with hyperglycemia Diabetes mellitus termite control service representative insulin use: with shelter use Diabetes mellitus type: type 2 Benign essential hypertension I10 Insomnia, unspecified type G47.00 Insomnia type: unspecified Anxiety F41.9 Bipolar affective disorder, current episode mixed, current episode severity unspecified F31.60 Active/Remission status: currently active Current bipolar episode type: mixed Current episode severity: unspecified Obesity (BMI 30-39.9) E66.9
--- NOTE | 2023-10-31 11:09 | MHC.PC.OV ---
Vital Signs 10/31/23 11:09 Height 6 ft Weight 282 lb 8 oz BMI 38.3 BP 124/82 Blood Pressure Location Lt brachial Position Sitting Pulse 107 H Pulse Source Pulse Oximeter Pulse Oximetry (%) 97 Oxygen Delivery Method Room Air Intake Visit Reasons: DM, hyperlipidemia, anxiety, depression Assistant Child Care Teacher Required: No Accompanied by: Self / Same As Patient Allergies No Known Allergies [No Known Allergies*] Allergy (Verified 11/30/24 14:09) Medication List - Last Reconciled 10/31/23 by Alexys Ellis MD amlodipine 10 mg PO DAILY blood sugar diagnostic (FreeStyle Lite Strips) 1 strip miscellaneous QID bupropion HCl 75 mg PO QAM cholecalciferol (vitamin D3) 50 mcg PO DAILY 90 days clonazepam 0.5 mg PO BID PRN dulaglutide (Trulicity) 4.5 mg subcut QWEEK flash glucose scanning reader ([employer] Claus 2 [place]) As directed flash glucose sensor (FreeStyle Claus 2 Sensor kit) As directed gabapentin 1,200 mg PO BID PRN insulin degludec (Tresiba FlexTouch U-200 insulin) 70 units subcut DAILY insulin lispro (Humalog KwikPen (U-100) Insulin) 25 units with breakfast, 25 units with lunch and 30 units with dinner subcutaneously 3 times a day; lancets (Lancets,Ultra Thin) As directed QID lisinopril 10 mg PO DAILY metformin 1,000 mg (2 x 500 mg) PO BID oxcarbazepine 300 mg PO DAILY oxcarbazepine 900 mg PO BEDTIME pen needle, diabetic 4 times daily sertraline (Zoloft) 200 mg PO DAILY topiramate (Topamax) 25 mg PO BID trazodone 200 mg PO BEDTIME PRN Tobacco use date assessed: 10/31/23 Dental Screening Dental Screen Date: 10/31/23 Did you have a dental visit in the last 12 months?: Yes Did you have a dental problem in the last 6 months where you did not have access to dental care?: No Was dental information given to patient?: Patient has dentist HPI DM, hyperlipidemia, anxiety, depression HPI Details Patient comes in today for his follow-up visit States that he feels okay He denies any headaches or dizziness Denies any chest pains, no shortness of breath No nausea/vomiting, no abdominal pain No change in bowel habits noted He had his follow-up labs done a couple of weeks ago - to discuss his results [facility] Medical History (Updated 12/01/24 @ 03:30 by Alexys Ellis MD) Mixed hyperlipidemia Morbid obesity with BMI of 40.0-44.9, adult Bipolar disorder Anxiety Type 2 diabetes mellitus with hyperglycemia Borderline hypercholesterolemia Essential hypertension DM (diabetes mellitus) type II uncontrolled with eye manifestation Tear meniscus knee Surgical History History of right knee surgery Hx of left knee surgery Family History Other Mental problem Social History Household Members: None Housing: Apartment Do you presently have visiting nurse or other home services: No (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 1. Little interest or pleasure in doing things: not at all 2. Feeling down, depressed, or hopeless: not at all 3. Trouble falling or staying asleep, or sleeping too much: not at all 4. Feeling tired or having little energy: not at all 5. Poor appetite or overeating: not at all 6. Feeling bad about yourself - or that you are a failure or have let yourself or your family down: not at all 7. Trouble concentrating on things, such as reading the newspaper or watching television: not at all 8. Moving or speaking so slowly that other people could have noticed. Or the opposite - being so fidgety or restless that you have been moving around a lot more than usual: not at all 9. Thoughts that you would be better off or of hurting yourself in some way: not at all Total score: 0 Depression Screening Interpretation: Negative (is on Rx) Depression Screening Done: Yes 95542 - PHQ-9 Billing: Yes Source: Developed by Drs. Kali Jay, Doron Rice and colleagues, with an educational holly from [employer]. Thrive Questionnaire Date Thrive assessed: 10/31/23 I am a: Patient What is your living situation today?: I have a steady place to live Within the past 12 months, did the food you bought not last and you didn't have the money to get more?: Never true Within the past 12 months, did you worry whether your food would run out before you got money to buy more?: Never true Do you have trouble paying for medicines?: No Do you have trouble getting transportation to medical appointments?: No Do you have trouble paying your heating and electricity bill?: No Do you have trouble taking care of your child, family member or friend?: No Do you have trouble with day-to-day activities such as bathing, preparing meals, shopping, managing finances, etc.?: No Are you currently unemployed and looking for a job?: No Are you interested in more education?: No Please select the resources that you would like help with: None Currently or been in a relationship where the following occur: no concerns reported THRIVE Score: 0 AUDIT C Alcohol Use Questionnaire (AUDIT-C) 1. How often do you have a drink containing alcohol?: Never 3. How often do you have six or more drinks on one occasion?: Never Total Score: 0 Score Reviewed/Action Taken: Yes LORNA-7 AMB Questionnaire LORNA-7 Date LORNA - 7 assessed: 10/31/23 Feeling nervous, anxious, or on edge: 0 = Not at all Not being able to stop or control worryin = Not at all Worrying too much about different things: 0 = Not at all Trouble relaxin = Not at all Being so restless that it is hard to sit still: 0 = Not at all Becoming easily annoyed or irritable: 0 = Not at all Feeling afraid as if something awful might happen: 0 = Not at all Total LORNA-7 score (0-4 normal; 5-9 mild; 10-14 moderate; 15-21 severe): 0 Source: Developed by Cassandra Hough Kurt Kroenke and colleagues, with an educational holly from [employer]. Review of Systems Const Denies chills, Denies fatigue, Denies fever(s) and Denies headache(s) ENT Denies dysphagia, Denies dizziness, Denies otalgia, Denies headache(s), Denies neck pain, Denies odynophagia and Denies sore throat Card Denies chest pain, Denies rapid heart rate, Denies palpitations and Denies dyspnea Resp Denies chest congestion, Denies cough and Denies dyspnea GI Denies abdominal pain, Denies constipation, Denies dysphagia, Denies heartburn, Denies diarrhea, Denies nausea, Denies odynophagia and Denies vomiting Denies difficulty urinating, Denies nocturia and Denies urinary frequency Musc Denies back pain, Denies arthralgias and Denies neck pain Skin/Breast Denies rash Neuro Denies dizziness and Denies headache(s) Endo Denies fatigue and Denies palpitations Physical exam (Primary Care) Vital Signs: Last Vital Signs Pulse 107 H 10/31/23 11:09 BP 124/82 10/31/23 11:09 Pulse Ox 97 10/31/23 11:09 Oxygen Delivery Method Room Air 10/31/23 11:09 BMI result Body Mass Index 38.3 Tobacco/Smoking Status: Tobacco use Status Tobacco use date assessed 10/31/23 10/31/23 11:10 Patient Tobacco Use Status Never used Tobacco 10/31/23 11:10 e-Cigarette/Vaping Use Never Used 10/31/23 11:10 PHQ-9: PHQ-9 Score PHQ-9: Total score 0 10/31/23 11:51 Depression Screening Interpretation: Negative (is on Rx) Thrive Assessment: Date of Thrive Assessment Date Thrive assessed 10/31/23 10/31/23 11:10 Currently or been in a relationship where the following occur: no concerns reported Const General: no acute distress and alert HENMT Ears: TM's normal bilaterally and EAC's normal Throat: Yes posterior oropharynx normal and Yes tonsils normal (no TP congestion) Neck Neck: Yes supple and No lymphadenopathy Thyroid: Thyroid normal Resp Auscultation: clear to auscultation bilaterally, no rales and no wheezes Cardio Rate: regular rate Rhythm: regular rhythm Heart sounds: no murmurs GI Palpation (GI): Soft to palpation and nontender Auscultation: normal bowel sounds General: Yes no CVA tenderness Back/Spine/Pelvis Back: no CVA tenderness Thoracic/Lumbar Spine: No lumbar spinal tenderness Skin Rashes: no rashes Extrem General: Yes no clubbing, cyanosis or edema Results Reviewed Results Reviewed: Laboratory Tests 10/21/23 14:00 WBC 11.7 H Hgb 15.1 Hct 46.6 Plt Count 355 Sodium 141 Potassium 4.0 Creatinine 0.72 Estimated GFR > 60 Fasting Glucose 146 H Hemoglobin A1c % 6.5 H Calcium 10.0 AST 12 ALT 17 Triglycerides 156 H Cholesterol 156 LDL Cholesterol, Calc 87 HDL Cholesterol 38 L 25-OH Vitamin D Total 30.5 L TSH 1.04 Ur Specific [place] 1.020 Urine Protein 100 (2+) H Urine Glucose (UA) Negative Urine Blood Negative Urine Nitrite Negative Ur Leukocyte Esterase Negative Microalb/Creat Ratio 114.1 H Coding Level of Care Code Est Pt Level 4 (79694) Diagnoses Type 2 diabetes mellitus with hyperglycemia, with long-term current use of insulin E11.65; Z79.4 Diabetes mellitus complication status: with hyperglycemia Diabetes mellitus snf insulin use: with intermediate project manager use Diabetes mellitus type: type 2 Benign essential hypertension I10 Mixed hyperlipidemia E78.2 Insomnia, unspecified type G47.00 Insomnia type: unspecified Anxiety F41.9 Bipolar affective disorder, current episode mixed, current episode severity unspecified F31.60 Active/Remission status: currently active Current bipolar episode type: mixed Current episode severity: unspecified Obesity (BMI 30-39.9) E66.9
== END 2023-10-31 11:51 | disposition home or self-care (01) ==
PROVIDERS: PCP Internal Medicine; Visit Provider Internal Medicine
DX: E11.65 Type 2 diabetes mellitus with hyperglycemia (principal); Z79.4 Long term (current) use of insulin; I10 Essential (primary) hypertension; E78.2 Mixed hyperlipidemia; G47.00 Insomnia, unspecified; F41.9 Anxiety disorder, unspecified; F31.60 Bipolar disorder, current episode mixed, unspecified; E66.9 Obesity, unspecified
CPT/HCPCS: 99499

== ENCOUNTER 2024-04-16 14:11 | Outpatient (AMB) | payer OTHER, SELFPAY ==
[2024-04-16 14:16] VITALS: BP 144/82; PULSE 94; O2SAT 97; BMI 40.5
--- NOTE | 2024-04-16 14:16 | A.OFFPC_ITS ---
Vital Signs 04/16/24 14:16 Height 6 ft Weight 299 lb BMI 40.5 BP 144/82 H Blood Pressure Location Lt brachial Position Sitting Pulse 94 Pulse Source Pulse Oximeter Pulse Oximetry (%) 97 Oxygen Delivery Method Room Air Intake Visit Reasons: follow up/reschedule Allergies No Known Allergies [No Known Allergies*] Allergy (Verified 04/16/24 14:42) Medication List - Last Reconciled 04/16/24 by Alexys Ellis MD amlodipine 10 mg PO DAILY blood sugar diagnostic (FreeStyle Lite Strips) 1 strip miscellaneous QID bupropion HCl 75 mg PO QAM 90 days cholecalciferol (vitamin D3) 50 mcg PO DAILY 90 days clonazepam 0.5 mg PO BID PRN dulaglutide (Trulicity) 4.5 mg subcut QWEEK flash glucose scanning reader (LocalGuidingStyle Claus 2 [place]) As directed flash glucose sensor (FreeStyle Claus 2 Sensor kit) As directed gabapentin 1,200 mg PO BID PRN insulin degludec (Tresiba FlexTouch U-200 insulin) 70 units subcut DAILY insulin lispro (Humalog KwikPen (U-100) Insulin) 25 units with breakfast, 25 units with lunch and 30 units with dinner subcutaneously 3 times a day; lancets (Lancets,Ultra Thin) As directed QID lisinopril 10 mg PO DAILY metformin 1,000 mg (2 x 500 mg) PO BID oxcarbazepine 300 mg PO DAILY oxcarbazepine 900 mg PO BEDTIME pen needle, diabetic 4 times daily sertraline (Zoloft) 200 mg PO DAILY topiramate (Topamax) 25 mg PO BID trazodone 200 mg PO BEDTIME PRN Tobacco use date assessed: 10/31/23 Dental Screening Dental Screen Date: 10/31/23 HPI follow up/reschedule HPI Details Patient comes in today for his follow up visit States that he currently feels okay He is still seeing Dr. Rivera for endocrinology follow up of his diabetes - was last seen by Dr. Rivera about 3 months ago and has his next follow up appointment later this month States that his blood pressure is high today as he just realized that he forgot to take his Amlodipine earlier this morning Adds that he has not been taking his Trulicity in almost 3 months now as he has not been able to get his Rx at the pharmacy (unavailable); he has gained some weight also lately as a results He denies any headaches or dizziness Denies any chest pains, no SOB No nausea/vomiting, no abdominal pain No change in bowel habits noted He was not able to get his follow up labs done prior to his visit today although he thinks that he had some labs done for Dr. Rivera at [facility] a few weeks ago His last known HgbA1c was around 6.8% a few months ago [facility] Medical History Type 2 diabetes mellitus with hyperglycemia Generalized anxiety disorder Borderline hypercholesterolemia Essential hypertension DM (diabetes mellitus) type II uncontrolled with eye manifestation Bipolar illness Tear meniscus knee Surgical History History of right knee surgery Hx of left knee surgery Family History Other Mental problem Social History Household Members: None Housing: Apartment Do you presently have visiting nurse or other home services: No (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 1. Little interest or pleasure in doing things: not at all 2. Feeling down, depressed, or hopeless: not at all 3. Trouble falling or staying asleep, or sleeping too much: not at all 4. Feeling tired or having little energy: not at all 5. Poor appetite or overeating: not at all 6. Feeling bad about yourself - or that you are a failure or have let yourself or your family down: not at all 7. Trouble concentrating on things, such as reading the newspaper or watching television: not at all 8. Moving or speaking so slowly that other people could have noticed. Or the opposite - being so fidgety or restless that you have been moving around a lot more than usual: not at all 9. Thoughts that you would be better off or of hurting yourself in some way: not at all Total score: 0 Depression Screening Interpretation: Negative (is on Rx) Depression Screening Done: Yes 82519 - PHQ-9 Billing: Yes Source: Developed by Drs. Kali Jay, Cassandra Gonzalez, Doron Faustin and colleagues, with an educational holly from [employer]. Thrive Questionnaire Date Thrive assessed: 10/31/23 AUDIT C Alcohol Use Questionnaire (AUDIT-C) 1. How often do you have a drink containing alcohol?: Never 3. How often do you have six or more drinks on one occasion?: Never Total Score: 0 Score Reviewed/Action Taken: Yes LORNA-7 AMB Questionnaire LORNA-7 Date LORNA - 7 assessed: 10/31/23 Source: Developed by Drs. Kali Jay, Cassandra Gonzalez, Doron Faustin and colleagues, with an educational holly from [employer]. Review of Systems Const Denies chills, Denies fatigue, Denies fever(s) and Denies headache(s) ENT Denies dysphagia, Denies dizziness, Denies otalgia, Denies headache(s), Denies odynophagia and Denies sore throat Card Denies chest pain, Denies rapid heart rate, Denies palpitations and Denies dyspnea Resp Denies cough and Denies dyspnea GI Denies abdominal pain, Denies constipation, Denies dysphagia, Denies heartburn, Denies diarrhea, Denies nausea, Denies odynophagia and Denies vomiting Denies difficulty urinating, Denies nocturia and Denies urinary frequency Musc Denies back pain and Denies arthralgias Skin/Breast Denies rash Neuro Denies dizziness and Denies headache(s) Endo Denies fatigue and Denies palpitations Physical exam (Primary Care) Vital Signs: Last Vital Signs Pulse 94 04/16/24 14:16 BP 144/82 H 04/16/24 14:16 Pulse Ox 97 04/16/24 14:16 Oxygen Delivery Method Room Air 04/16/24 14:16 BMI result Body Mass Index 40.5 Tobacco/Smoking Status: Tobacco use Status Tobacco use date assessed 10/31/23 04/16/24 14:17 Patient Tobacco Use Status Never used Tobacco 04/16/24 14:17 e-Cigarette/Vaping Use Never Used 04/16/24 14:17 PHQ-9: PHQ-9 Score PHQ-9: Total score 0 04/16/24 14:42 Depression Screening Interpretation: Negative (is on Rx) Thrive Assessment: Date of Thrive Assessment Date Thrive assessed 10/31/23 04/16/24 14:17 Const General: no acute distress and alert HENMT Ears: TM's normal bilaterally and EAC's normal Throat: Yes posterior oropharynx normal and Yes tonsils normal (no TP congestion) Neck Neck: Yes no lymphadenopathy and Yes supple Thyroid: Thyroid normal Resp Auscultation: clear to auscultation bilaterally, no rales and no wheezes Cardio Rate: regular rate Rhythm: regular rhythm Heart sounds: no murmurs GI Palpation (GI): Soft to palpation and nontender Auscultation: normal bowel sounds General: Yes no CVA tenderness Back/Spine/Pelvis Back: no CVA tenderness Thoracic/Lumbar Spine: No lumbar spinal tenderness Skin Rashes: no rashes Extrem General: Yes no clubbing, cyanosis or edema Results AMB Hemoglobin A1c AMB Hemoglobin A1c 8.4 % Last Edit by Esther Morgan CMA on 04/16/24 14 :35 Results Reviewed Results Reviewed: Laboratory Last Values Hgb A1c (Clinic) 8.4 % (4.0-6.0) H 04/16/24 14:17 Assessment and Plan Assessment & Plan (1) Diabetes mellitus: Comment: S/P DKA & LAURIE in 03/2021 Code(s): E11.9 - Type 2 diabetes mellitus without complications Qualifiers: Diabetes mellitus type: type 2 Diabetes mellitus tool machine set up operator insulin use: with tool machine set up operator use Diabetes mellitus complication status: with hyperglycemia Qualified Code(s): E11.65 - Type 2 diabetes mellitus with hyperglycemia; Z79.4 - [facility] (current) use of insulin Plan: His in-office HgbA1c today is at 8.4% (HgbA1c was at 6.5% back in October 2023) - goal is at least <7.0% and ideally <6.5% Reinforced diabetic diet Continue Tresiba 70 units Q HS, Humalog 25 units with breakfast, 25 units with lunch and 30 units with dinner and Metformin 1000 mg BID He was also on Trulicity 4.5 mg SQ once a week but he has not been able to get his filled at his pharmacy in about 3 months now due to unavailability of the medication He is reminded to try getting his follow up labs done KATIE - lab orders are printed out and handed to patient Follow up with endocrinology (Dr. Rivera) at [facility] as scheduled (2) Benign essential hypertension: Code(s): I10 - Essential (primary) hypertension Plan: Reinforced low sodium diet - goal is systolic BP of 120 mm or less Continue Amlodipine 10 mg QD and Lisinopril 10 mg QD (3) Insomnia: Code(s): G47.00 - Insomnia, unspecified Qualifiers: Insomnia type: unspecified Qualified Code(s): G47.00 - Insomnia, unspecified Plan: Sleep hygiene reinforced Continue Trazodone 200 mg QHS PRN (4) Anxiety: Code(s): F41.9 - Anxiety disorder, unspecified Plan: Continue Clonazepam 0.5 mg twice a day as needed (5) Bipolar disorder: Code(s): F31.9 - Bipolar disorder, unspecified Qualifiers: Active/Remission status: currently active Current bipolar episode type: mixed Current episode severity: unspecified Qualified Code(s): F31.60 - Bipolar disorder, current episode mixed, unspecified Plan: Continue Sertraline 200 mg once a day, Oxcarbazepine 300 mg daily in AM and 900 mg daily at bedtime, Bupropion 75 mg once a day in AM, Topiramate 25 mg twice a day and Gabapentin 1200 mg twice a day PRN Follow-up with Psychiatry as scheduled (6) Obesity (BMI 30-39.9): Code(s): E66.9 - Obesity, unspecified Plan: Reinforced diet/exercise as tolerated/lose weight - he has gained weight again since he ran out of his TrIS Decisions about 3 months ago Plan Follow up in 4 months Orders: Orders Comprehensive [place]. Panel Fast 4 Months E78.00 - Pure hypercholesterolemia, unspecified Microalbumin, Random (w Creat) 4 Months E11.9 - Type 2 diabetes mellitus without complications UA CC w/rflx Micro + Cult 4 Months R30.0 - Dysuria Complete Blood Count Auto Diff 4 Months D64.9 - Anemia, unspecified AMB Hemoglobin A1c Today Z13.9 - Encounter for screening, unspecified Hemoglobin A1c 4 Months E11.9 - Type 2 diabetes mellitus without complications Lipid Panel 4 Months E78.00 - Pure hypercholesterolemia, unspecified TSH reflex Free T4 4 Months E78.00 - Pure hypercholesterolemia, unspecified Vitamin D 25-OH Total 4 Months E55.9 - Vitamin D deficiency, unspecified Coding Level of Care Code Est Pt Level 4 (10015) Diagnoses Type 2 diabetes mellitus with hyperglycemia, with long-term current use of insulin E11.65; Z79.4 Diabetes mellitus type: type 2 Diabetes mellitus tool machine set up operator insulin use: with tool machine set up operator use Diabetes mellitus complication status: with hyperglycemia Benign essential hypertension I10 Insomnia, unspecified type G47.00 Insomnia type: unspecified Anxiety F41.9 Bipolar affective disorder, current episode mixed, current episode severity unspecified F31.60 Active/Remission status: currently active Current bipolar episode type: mixed Current episode severity: unspecified Obesity (BMI 30-39.9) E66.9
== END 2024-04-16 15:00 | disposition home or self-care (01) ==
PROVIDERS: PCP Internal Medicine; Visit Provider Internal Medicine
DX: E11.65 Type 2 diabetes mellitus with hyperglycemia (principal); Z79.4 Long term (current) use of insulin; I10 Essential (primary) hypertension; F31.60 Bipolar disorder, current episode mixed, unspecified; G47.00 Insomnia, unspecified; F41.9 Anxiety disorder, unspecified
CPT/HCPCS: 83036; 99214

== ENCOUNTER 2024-11-30 13:13 | Outpatient (AMB) | payer OTHER, SELFPAY ==
--- NOTE | 2024-11-30 13:25 | MHC.PC.OV ---
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 Required: No Accompanied by: Self / Same As Patient Allergies No Known Allergies [No Known Allergies*] Allergy (Verified 11/30/24 14:09) Medication List - Last Reconciled 11/30/24 by Alexys Ellis MD amlodipine 10 mg PO DAILY blood sugar diagnostic (FreeStyle Lite Strips) 1 strip miscellaneous QID bupropion HCl 75 mg PO QAM 90 days cholecalciferol (vitamin D3) 50 mcg PO DAILY 90 days clonazepam 0.5 mg PO BID PRN dulaglutide (Trulicity) 4.5 mg subcut QWEEK flash glucose scanning reader (MediaSpikeStyle Claus 2 [place]) As directed flash glucose sensor (FreeStyle Claus 2 Sensor kit) As directed gabapentin 1,200 mg PO BID PRN insulin degludec (Tresiba FlexTouch U-200 insulin) 70 units subcut DAILY insulin lispro (Humalog KwikPen (U-100) Insulin) 25 units with breakfast, 25 units with lunch and 30 units with dinner subcutaneously 3 times a day; lancets (Lancets,Ultra Thin) As directed QID lisinopril 10 mg PO DAILY metformin 1,000 mg (2 x 500 mg) PO BID oxcarbazepine 300 mg PO DAILY oxcarbazepine 900 mg PO BEDTIME pen needle, diabetic 4 times daily sertraline (Zoloft) 200 mg PO DAILY topiramate (Topamax) 25 mg PO BID trazodone 200 mg PO BEDTIME PRN Tobacco use date assessed: 11/30/24 Dental Screening Dental Screen Date: 11/30/24 Did you have a dental visit in the last 12 months?: No Did you have a dental problem in the last 6 months where you did not have access to dental care?: No Was dental information given to patient?: Patient has dentist HPI Follow Up HPI Details Patient comes in today for follow up of his DM, HTN, dyslipidemia States that he feels okay He denies any headaches or dizziness Denies any chest pains, no SOB No nausea/vomiting, no abdominal pain No change in bowel habits noted Patient continues to see Dr. Rivera at [facility] for follow up of his diabetes He has not had any follow up labs done since October 2023 but states that he was just seen by Dr. Rivera last week and recalls being advised that his HgbA1c done at the office went up slightly from previous but he does not remember exactly what his number was now Relates that he's had had trouble getting his Rx filled at his pharmacy timely for the past month or so and he was out of some of his medications for a while States that he was advised by Dr. Rivera to just continue on his current medications for now with no changes made and he has his next follow up appt. with Dr. Rivera on 03/07/2025 [facility] Medical History (Updated 12/01/24 @ 03:30 by Alexys Ellis MD) Mixed hyperlipidemia Morbid obesity with BMI of 40.0-44.9, adult Bipolar disorder Anxiety Type 2 diabetes mellitus with hyperglycemia Borderline hypercholesterolemia Essential hypertension DM (diabetes mellitus) type II uncontrolled with eye manifestation Tear meniscus knee Surgical History History of right knee surgery Hx of left knee surgery Family History Other Mental problem Social History Household Members: None Housing: Apartment Do you presently have visiting nurse or other home services: No (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 1. Little interest or pleasure in doing things: not at all 2. Feeling down, depressed, or hopeless: not at all 3. Trouble falling or staying asleep, or sleeping too much: not at all 4. Feeling tired or having little energy: not at all 5. Poor appetite or overeating: not at all 6. Feeling bad about yourself - or that you are a failure or have let yourself or your family down: not at all 7. Trouble concentrating on things, such as reading the newspaper or watching television: not at all 8. Moving or speaking so slowly that other people could have noticed. Or the opposite - being so fidgety or restless that you have been moving around a lot more than usual: not at all 9. Thoughts that you would be better off or of hurting yourself in some way: not at all Total score: 0 Depression Screening Interpretation: Negative (is on Rx) Depression Screening Done: Yes 04861 - PHQ-9 Billing: Yes Source: Developed by Drs. Kali Jay, Cassandra Gonzalez, Doron Faustin and colleagues, with an educational holly from [employer]. Thrive Questionnaire Date Thrive assessed: 11/30/24 I am a: Patient What is your living situation today?: I have a steady place to live Within the past 12 months, did the food you bought not last and you didn't have the money to get more?: Never true Within the past 12 months, did you worry whether your food would run out before you got money to buy more?: Never true Do you have trouble paying for medicines?: No Do you have trouble getting transportation to medical appointments?: No Do you have trouble paying your heating and electricity bill?: No Do you have trouble taking care of your child, family member or friend?: No Do you have trouble with day-to-day activities such as bathing, preparing meals, shopping, managing finances, etc.?: No Are you currently unemployed and looking for a job?: No Are you interested in more education?: No Please select the resources that you would like help with: None Currently or been in a relationship where the following occur: No concerns reported THRIVE Score: 0 AUDIT C Alcohol Use Questionnaire (AUDIT-C) 1. How often do you have a drink containing alcohol?: Never 3. How often do you have six or more drinks on one occasion?: Never Total Score: 0 Score Reviewed/Action Taken: Yes LORNA-7 AMB Questionnaire LORNA-7 Date LORNA - 7 assessed: 11/30/24 Feeling nervous, anxious, or on edge: 0 = Not at all Not being able to stop or control worryin = Not at all Worrying too much about different things: 0 = Not at all Trouble relaxin = Not at all Being so restless that it is hard to sit still: 0 = Not at all Becoming easily annoyed or irritable: 0 = Not at all Feeling afraid as if something awful might happen: 0 = Not at all Total LORNA-7 score (0-4 normal; 5-9 mild; 10-14 moderate; 15-21 severe): 0 Source: Developed by Drs. Kali Jay, Cassandra Gonzalez, Doron Faustin and colleagues, with an educational holly from [employer]. Review of Systems Const Denies chills, Denies fatigue, Denies fever(s) and Denies headache(s) ENT Denies dysphagia, Denies dizziness, Denies otalgia, Denies headache(s), Denies neck pain, Denies odynophagia and Denies sore throat Card Denies chest pain, Denies rapid heart rate, Denies palpitations and Denies dyspnea Resp Denies chest congestion, Denies cough and Denies dyspnea GI Denies abdominal pain, Denies constipation, Denies dysphagia, Denies heartburn, Denies diarrhea, Denies nausea, Denies odynophagia and Denies vomiting Denies difficulty urinating, Denies nocturia and Denies urinary frequency Musc Denies back pain, Denies arthralgias and Denies neck pain Skin/Breast Denies rash Neuro Denies dizziness and Denies headache(s) Endo Denies fatigue and Denies palpitations Physical exam (Primary Care) Vital Signs: Last Vital Signs Pulse 74 11/30/24 13:27 BP 124/86 11/30/24 13:27 Pulse Ox 97 11/30/24 13:27 Oxygen Delivery Method Room Air 11/30/24 13:27 BMI result Body Mass Index 41.4 Tobacco/Smoking Status: Tobacco use Status Tobacco use date assessed 11/30/24 11/30/24 13:32 Patient Tobacco Use Status Never used Tobacco 11/30/24 13:32 e-Cigarette/Vaping Use Never Used 11/30/24 13:32 PHQ-9: PHQ-9 Score PHQ-9: Total score 0 11/30/24 14:07 Depression Screening Interpretation: Negative (is on Rx) Thrive Assessment: Date of Thrive Assessment Date Thrive assessed 11/30/24 11/30/24 13:32 Currently or been in a relationship where the following occur: No concerns reported Const General: no acute distress and alert HENMT Ears: TM's normal bilaterally and EAC's normal Throat: Yes posterior oropharynx normal and Yes tonsils normal (no TP congestion) Neck Neck: Yes supple and No lymphadenopathy Thyroid: Thyroid normal Resp Auscultation: clear to auscultation bilaterally, no rales and no wheezes Cardio Rate: regular rate Rhythm: regular rhythm Heart sounds: no murmurs GI Palpation (GI): Soft to palpation and nontender Auscultation: normal bowel sounds General: Yes no CVA tenderness Back/Spine/Pelvis Back: no CVA tenderness Thoracic/Lumbar Spine: No lumbar spinal tenderness Skin Rashes: no rashes Extrem General: Yes no clubbing, cyanosis or edema Coding Level of Care Code Est Pt Level 4 (05220) Complex EM visit Add On G2211 Diagnoses Type 2 diabetes mellitus with hyperglycemia, with long-term current use of insulin E11.65; Z79.4 Diabetes mellitus halfway insulin use: with halfway use Essential hypertension I10 Mixed hyperlipidemia E78.2 Insomnia, unspecified type G47.00 Insomnia type: unspecified Anxiety F41.9 Bipolar affective disorder, current episode mixed, current episode severity unspecified F31.60 Active/Remission status: currently active Current bipolar episode type: mixed Current episode severity: unspecified Morbid obesity with BMI of 40.0-44.9, adult E66.01; Z68.41 Additional Codes PHQ-9 - 28486 - PHQ-9 Billing: Yes ([id number]) Assessment & Plan Assessment & Plan (1) Type 2 diabetes mellitus with hyperglycemia: Code(s): E11.65 - Type 2 diabetes mellitus with hyperglycemia Category: Medical Qualifiers: Diabetes mellitus halfway insulin use: with exterminator use Qualified Code(s): E11.65 - Type 2 diabetes mellitus with hyperglycemia; Z79.4 - [facility] (current) use of insulin Plan: Reinforced diabetic diet Patient states that he his HgbA1c checked at Dr. Rivera's office last week but he could not what his number was As he has not had any follow-up labs done in over a year now, we will send him to get his follow-up labs done KATIE; advised patient that I will also have them send Dr. Rivera a copy of his labs as well Continue Tresiba 70 units Q HS, Humalog 25 units with breakfast, 25 units with lunch and 30 units with dinner, Metformin 1000 mg BID and Trulicity 4.5 mg SQ once a week Follow up with Dr. Rivera at [facility] as scheduled for continuing management of his diabetes (2) Essential hypertension: Code(s): I10 - Essential (primary) hypertension Category: Medical Plan: Reinforced low sodium diet - goal is systolic BP of 120 mm or less Continue Amlodipine 10 mg QD and Lisinopril 10 mg QD (3) Mixed hyperlipidemia: Code(s): E78.2 - Mixed hyperlipidemia Category: Medical Plan: Reinforced low cholesterol diet His serum triglyceride level was high at over 270 mg/dl back in 2019 but his most recent cholesterol numbers when last checked in October 2023 were much better and closer to goal Will have patient recheck his fasting lipids KATIE for follow-up (4) Insomnia: Code(s): G47.00 - Insomnia, unspecified Category: Medical Qualifiers: Insomnia type: unspecified Qualified Code(s): G47.00 - Insomnia, unspecified Plan: Sleep hygiene reinforced Continue Trazodone 200 mg QHS PRN (5) Anxiety: Code(s): F41.9 - Anxiety disorder, unspecified Category: Medical Plan: Continue Clonazepam 0.5 mg twice a day as needed (6) Bipolar disorder: Code(s): F31.9 - Bipolar disorder, unspecified Category: Medical Qualifiers: Active/Remission status: currently active Current bipolar episode type: mixed Current episode severity: unspecified Qualified Code(s): F31.60 - Bipolar disorder, current episode mixed, unspecified Plan: Continue Sertraline 200 mg once a day, Oxcarbazepine 300 mg daily in AM and 900 mg daily at bedtime, Bupropion 75 mg once a day in AM, Topiramate 25 mg twice a day and Gabapentin 1200 mg twice a day PRN Follow-up with Psychiatry as scheduled (7) Morbid obesity with BMI of 40.0-44.9, adult: Code(s): E66.01 - Morbid (severe) obesity due to excess calories; Z68.41 - Body mass index [BMI] 40.0-44.9, adult Category: Medical Plan: Reinforced diet/exercise as tolerated/lose weight Plan Follow up in 4 months Orders: Orders Hemoglobin A1c 11/30/24 E11.9 - Type 2 diabetes mellitus without complications Complete Blood Count Auto Diff 11/30/24 D64.9 - Anemia, unspecified Microalbumin, Random (w Creat) 11/30/24 E11.9 - Type 2 diabetes mellitus without complications UA CC w/rflx Micro + Cult 11/30/24 R30.0 - Dysuria Vitamin D 25-OH Total 11/30/24 E55.9 - Vitamin D deficiency, unspecified Comprehensive [place]. Panel Fast 11/30/24 E78.00 - Pure hypercholesterolemia, unspecified Lipid Panel 11/30/24 E78.00 - Pure hypercholesterolemia, unspecified TSH reflex Free T4 11/30/24 E78.00 - Pure hypercholesterolemia, unspecified
[2024-11-30 13:27] VITALS: BP 124/86; PULSE 74; O2SAT 97; BMI 41.4
== END 2024-11-30 14:18 | disposition home or self-care (01) ==
LOC: HO.HMCH 13:14
PROVIDERS: PCP Internal Medicine; Visit Provider Internal Medicine
DX: E11.65 Type 2 diabetes mellitus with hyperglycemia (principal); Z79.4 Long term (current) use of insulin; E66.01 Morbid (severe) obesity due to excess calories; Z68.41 Body mass index [BMI] 40.0-44.9, adult; F31.60 Bipolar disorder, current episode mixed, unspecified; I10 Essential (primary) hypertension; E78.2 Mixed hyperlipidemia; G47.00 Insomnia, unspecified; F41.9 Anxiety disorder, unspecified

== ENCOUNTER → 2024-11-30 13:13 | Outpatient (BNVA) | payer OTHER, SELFPAY | PROVIDERS: PCP Internal Medicine; Visit Provider Internal Medicine | DX: E11.65 Type 2 diabetes mellitus with hyperglycemia (principal); E78.2 Mixed hyperlipidemia; I10 Essential (primary) hypertension; F41.9 Anxiety disorder, unspecified; G47.00 Insomnia, unspecified; F31.60 Bipolar disorder, current episode mixed, unspecified; E66.01 Morbid (severe) obesity due to excess calories; Z68.41 Body mass index [BMI] 40.0-44.9, adult; Z71.3 Dietary counseling and surveillance; Z79.4 Long term (current) use of insulin | CPT/HCPCS: 96127; 99212 ==

== ENCOUNTER 2025-06-05 09:45 | Outpatient (AMB) | payer OTHER, SELFPAY ==
[2025-06-05 09:55] VITALS: BP 140/86; PULSE 111; O2SAT 97; BMI 42.6
--- NOTE | 2025-06-05 09:55 | MHC.PC.OV ---
Vital Signs 06/05/25 09:55 06/05/25 10:38 Height 6 ft Weight 314 lb 8 oz BMI 42.6 BP 140/86 H 160/98 H Blood Pressure Location Lt brachial Rt brachial Position Sitting Sitting Pulse 111 H Pulse Source Pulse Oximeter Pulse Oximetry (%) 97 Oxygen Delivery Method Room Air Intake Visit Reasons: DM, HTN,- A1C needed Weather Clerk Required: No Accompanied by: Self / Same As Patient Allergies No Known Allergies (No Known Allergies*) Allergy (Verified 06/05/25 10:12) Medication List - Last Reconciled 06/05/25 by Alexys Ellis MD amlodipine 10 mg PO DAILY blood sugar diagnostic (FreeStyle Lite Strips) 1 strip miscellaneous QID bupropion HCl 75 mg PO QAM 90 days cholecalciferol (vitamin D3) 50 mcg PO DAILY 90 days clonazepam 1.5 mg PO BID PRN dulaglutide (Trulicity) 4.5 mg subcut QWEEK flash glucose scanning reader (Vune LabStyle Claus 2 Baldwin) As directed flash glucose sensor (FreeStyle Claus 2 Sensor kit) As directed gabapentin 1,200 mg PO BID PRN insulin degludec (Tresiba FlexTouch U-200 insulin) 70 units subcut DAILY insulin lispro (Humalog KwikPen (U-100) Insulin) 25 units with breakfast, 25 units with lunch and 30 units with dinner subcutaneously 3 times a day; lancets (Lancets,Ultra Thin) As directed QID lisinopril 10 mg PO DAILY metformin 1,000 mg (2 x 500 mg) PO BID oxcarbazepine 300 mg PO DAILY oxcarbazepine 900 mg PO BEDTIME pen needle, diabetic 4 times daily sertraline (Zoloft) 200 mg PO DAILY topiramate (Topamax) 25 mg PO BID trazodone 200 mg PO BEDTIME PRN Ventolin HFA 90 mcg/actuation (albuterol sulfate) 2 puffs inhalation Q6H PRN 30 days NS Tobacco use date assessed: 06/05/25 Dental Screening Dental Screen Date: 06/05/25 Did you have a dental visit in the last 12 months?: No Did you have a dental problem in the last 6 months where you did not have access to dental care?: No Was dental information given to patient?: No HPI DM, HTN,- A1C needed HPI Details Patient comes in today for his follow up visit States that he feels okay He denies any headaches or dizziness Denies any chest pains, no SOB No nausea/vomiting, no abdominal pain No change in bowel habits noted He has no follow up labs done recently States that he has been trying to get more active and to exercise and lose weight but is limited due to his knee pains He was seen by Dr. 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 [facility] Medical History Mixed hyperlipidemia Morbid obesity with BMI of 40.0-44.9, adult Bipolar disorder Anxiety Type 2 diabetes mellitus with hyperglycemia Borderline hypercholesterolemia Essential hypertension DM (diabetes mellitus) type II uncontrolled with eye manifestation Tear meniscus knee Surgical History History of right knee surgery Hx of left knee surgery Family History Other Mental problem Social History Household Members: None Housing: Apartment Do you presently have visiting nurse or other home services: No (SERVICE TECH/WELDER 3X A WEEK) Alcohol intake: never Patient Tobacco Use Status: Never used Tobacco e-Cigarette/Vaping Use: Never Used Second Hand Smoke Exposure: Yes service: No Current occupational status: disabled Cognitive needs: No Hearing needs: No Vision needs: Yes (Glasses) Questionnaire PHQ-9 Over the last 2 weeks, how often have you been bothered by any of the following problems? 1. Little interest or pleasure in doing things: not at all 2. Feeling down, depressed, or hopeless: not at all 3. Trouble falling or staying asleep, or sleeping too much: not at all 4. Feeling tired or having little energy: not at all 5. Poor appetite or overeating: not at all 6. Feeling bad about yourself - or that you are a failure or have let yourself or your family down: not at all 7. Trouble concentrating on things, such as reading the newspaper or watching television: nearly every day 8. Moving or speaking so slowly that other people could have noticed. Or the opposite - being so fidgety or restless that you have been moving around a lot more than usual: not at all 9. Thoughts that you would be better off or of hurting yourself in some way: not at all Total score: 3 Depression Screening Interpretation: Positive Depression Screening Follow-up: Existing condition and In treatment Depression Screening Done: Yes 54298 - PHQ-9 Billing: Yes Source: Developed by Drs. Kali Jay, Cassandra Gonzalez, Doron Faustin and colleagues, with an educational holly from [employer]. Thrive Questionnaire Date Thrive assessed: 11/30/24 I am a: Patient What is your living situation today?: I have a steady place to live Within the past 12 months, did the food you bought not last and you didn't have the money to get more?: Often true Within the past 12 months, did you worry whether your food would run out before you got money to buy more?: Often true Do you have trouble paying for medicines?: I choose not to answer this question Do you have trouble getting transportation to medical appointments?: Yes Do you have trouble paying your heating and electricity bill?: I choose not to answer this question Do you have trouble taking care of your child, family member or friend?: No Do you have trouble with day-to-day activities such as bathing, preparing meals, shopping, managing finances, etc.?: Yes Are you currently unemployed and looking for a job?: I choose not to answer this question Are you interested in more education?: I choose not to answer this question Please select the resources that you would like help with: Food, Paying for medicine, Transportation, Utilities, Daily support and Education Currently or been in a relationship where the following occur: I choose not to answer THRIVE Score: 3 AUDIT C Alcohol Use Questionnaire (AUDIT-C) 1. How often do you have a drink containing alcohol?: Never 3. How often do you have six or more drinks on one occasion?: Never Total Score: 0 Score Reviewed/Action Taken: Yes LORNA-7 AMB Questionnaire LORNA-7 Date LORNA - 7 assessed: 11/30/24 Feeling nervous, anxious, or on edge: 3 = Nearly every day Not being able to stop or control worryin = Nearly every day Worrying too much about different things: 3 = Nearly every day Trouble relaxin = Nearly every day Being so restless that it is hard to sit still: 3 = Nearly every day Becoming easily annoyed or irritable: 3 = Nearly every day Feeling afraid as if something awful might happen: 3 = Nearly every day Total LORNA-7 score (0-4 normal; 5-9 mild; 10-14 moderate; 15-21 severe): 21 Source: Developed by Drs. Kali Jay, Cassandra Gonzalez, oDron Faustin and colleagues, with an educational holly from [employer]. Review of Systems Const Denies chills, Denies fatigue, Denies fever(s) and Denies headache(s) ENT Denies dysphagia, Denies dizziness, Denies otalgia, Denies headache(s), Denies neck pain, Denies odynophagia and Denies sore throat Card Denies chest pain, Denies rapid heart rate, Denies palpitations and Denies dyspnea Resp Denies chest congestion, Denies cough and Denies dyspnea GI Denies abdominal pain, Denies constipation, Denies dysphagia, Denies heartburn, Denies diarrhea, Denies nausea, Denies odynophagia and Denies vomiting Denies difficulty urinating, Denies nocturia and Denies urinary frequency Musc Denies back pain, Denies arthralgias and Denies neck pain Skin/Breast Denies rash Neuro Denies dizziness and Denies headache(s) Endo Denies fatigue and Denies palpitations Physical exam (Primary Care) Vital Signs: Last Vital Signs Pulse 111 H 06/05/25 09:55 BP 160/98 H 06/05/25 10:38 Pulse Ox 97 06/05/25 09:55 Oxygen Delivery Method Room Air 06/05/25 09:55 BMI result Body Mass Index 42.6 Tobacco/Smoking Status: Tobacco use Status Tobacco use date assessed 06/05/25 06/05/25 10:04 Patient Tobacco Use Status Never used Tobacco 06/05/25 10:04 e-Cigarette/Vaping Use Never Used 06/05/25 10:04 PHQ-9: PHQ-9 Score PHQ-9: Total score 3 06/05/25 10:44 Depression Screening Interpretation: Positive Depression Screening Follow-up: Existing condition and In treatment Thrive Assessment: Date of Thrive Assessment Date Thrive assessed 11/30/24 06/05/25 10:04 Currently or been in a relationship where the following occur: I choose not to answer Const General: no acute distress and alert HENMT Ears: TM's normal bilaterally and EAC's normal Throat: Yes posterior oropharynx normal and Yes tonsils normal (no TP congestion) Neck Neck: Yes supple and No lymphadenopathy Thyroid: Thyroid normal Resp Auscultation: clear to auscultation bilaterally, no rales and no wheezes Cardio Rate: regular rate Rhythm: regular rhythm Heart sounds: no murmurs GI Palpation (GI): Soft to palpation and nontender Auscultation: normal bowel sounds General: Yes no CVA tenderness Back/Spine/Pelvis Back: no CVA tenderness Thoracic/Lumbar Spine: No lumbar spinal tenderness Skin Rashes: no rashes Extrem General: Yes no clubbing, cyanosis or edema Results AMB Hemoglobin A1c AMB Hemoglobin A1c 8.0 % Last Edit by JACKELYN Lin on 06/05/25 10:40 Results Reviewed Results Reviewed: Laboratory Last Values Hgb A1c (Clinic) 8.0 % (4.0-6.0) H 06/05/25 10:08 Coding Level of Care Code Est Pt Level 4 (43625) Diagnoses Type 2 diabetes mellitus with hyperglycemia, with long-term current use of insulin E11.65; Z79.4 Diabetes mellitus fdc 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 Essential hypertension I10 Mixed hyperlipidemia E78.2 Insomnia, unspecified type G47.00 Insomnia type: unspecified Anxiety F41.9 Bipolar affective disorder, current episode mixed, current episode severity unspecified F31.60 Active/Remission status: currently active Current bipolar episode type: mixed Current episode severity: unspecified Morbid obesity with BMI of 40.0-44.9, adult E66.01; Z68.41 Additional Codes PHQ-9 - 93504 - PHQ-9 Billing: Yes ([id number]) Assessment & Plan Assessment & Plan (1) Type 2 diabetes mellitus with hyperglycemia: Code(s): E11.65 - Type 2 diabetes mellitus with hyperglycemia Category: Medical Qualifiers: Diabetes mellitus fdc 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 Qualified Code(s): E11.65 - Type 2 diabetes mellitus with hyperglycemia; Z79.4 - longterm (current) use of insulin Plan: Reinforced diabetic diet Patient did not go for his follow up labs as instructed after his last visit - we have no follow up labs on record for him since October 2023 It looks like he had some outside labs done in April 2024 but we do not have a copy of these on file His in-office HgbA1c today is at Continue Tresiba U-200 90 units Q HS, Humalog 6 units with breakfast, 6 units with lunch and 6 units with dinner, increasing by 2 units every 50 mg/dl, Metformin 1000 mg BID and Trulicity 4.5 mg SQ once a week - no changes are made to his regimen today as we will 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 Rivera at [facility] as scheduled for continuing management of his diabetes (2) Essential hypertension: Code(s): I10 - Essential (primary) hypertension Category: Medical Plan: Reinforced low sodium diet - goal is systolic BP of 120 mm or less Continue Amlodipine 10 mg QD Will increase his Lisinopril from 10 mg to 20 mg QD (3) Mixed hyperlipidemia: Code(s): E78.2 - Mixed hyperlipidemia Category: Medical Plan: Reinforced low cholesterol diet His serum triglyceride level was high at over 270 mg/dl back in 2019 but his most recent cholesterol numbers when last checked in October 2023 were much better and closer to goal Will have patient recheck his fasting lipids and labs KATIE for follow-up (4) Insomnia: Code(s): G47.00 - Insomnia, unspecified Category: Medical Qualifiers: Insomnia type: unspecified Qualified Code(s): G47.00 - Insomnia, unspecified Plan: Sleep hygiene reinforced Continue Trazodone 200 mg QHS PRN (5) Anxiety: Code(s): F41.9 - Anxiety disorder, unspecified Category: Medical Plan: Continue Clonazepam 0.5 mg twice a day as needed (6) Bipolar disorder: Code(s): F31.9 - Bipolar disorder, unspecified Category: Medical Qualifiers: Active/Remission status: currently active Current bipolar episode type: mixed Current episode severity: unspecified Qualified Code(s): F31.60 - Bipolar disorder, current episode mixed, unspecified Plan: Continue Sertraline 200 mg once a day, Oxcarbazepine 300 mg daily in AM and 900 mg daily at bedtime, Bupropion 75 mg once a day in AM, Topiramate 25 mg twice a day and Gabapentin 1200 mg twice a day PRN Follow-up with Psychiatry as scheduled (7) Morbid obesity with BMI of 40.0-44.9, adult: Code(s): E66.01 - Morbid (severe) obesity due to excess calories; Z68.41 - Body mass index [BMI] 40.0-44.9, adult Category: Medical Plan: Reinforced diet/exercise as tolerated/lose weight Plan As requested, his SERVICE TECH/WELDER referral form is completed and handed back to patient to fill in his personal informationbefore submitting this in Follow up in 4 months Orders: Orders AMB Hemoglobin A1c Today Z13.9 - Encounter for screening, unspecified Medications: Changed From lisinopril 10 mg PO DAILY To lisinopril 20 mg PO DAILY 90 tabs 1RF 90 days
[2025-06-05 10:38] VITALS: BP 160/98
--- OUTSIDE RECORDS SUMMARY | 2025-06-05 11:49 | XMS_ITS | Clinical Summary ---
Author Organization [facility] Address [address] [address] Phone Care Team Providers Care Customer Service Sales Associate Name Role Phone Alexys Ellis MD Primary Care Provider [phone] Allergies No known active allergies Medications amLODIPine (NORVASC) 10 MG tablet Take 10 mg by mouth daily. 08/21/20 21 Active FREESTYLE LITE Strp strips 09/23/19 22 Active buPROPion (WELLBUTRIN) 75 MG immediate release tablet Take 75 mg by mouth every morning. 08/21/20 21 Active gabapentin (NEURONTIN) 400 MG capsule Take 1,200 mg by mouth 3 (three) times a day as needed. 08/21/20 21 Active OXcarbazepine (OXTELLAR XR) 300 mg 24 hr tablet Take 300 mg by mouth daily. 08/21/20 21 Active OXcarbazepine (OXTELLAR XR) 600 mg 24 hr tablet Take 600 mg by mouth daily. 08/21/20 21 Active sertraline (ZOLOFT) 100 MG tablet Take 100 mg by mouth every morning. 08/21/20 21 Active traZODone (DESYREL) 100 MG tablet Take 100 mg by mouth as needed. 11/19/19 22 Active BD ULTRA-FINE MINI PEN NEEDLE 31 gauge x 11/25 NdleIndications:Typ e 2 diabetes mellitus with both eyes affected by mild nonproliferative retinopathy without macular edema, with long-term current use of insulin USE DIRECTED 4 TIMES A DAY 400 each 3 03/25/20 23 Active topiramate (TOPAMAX) 25 MG tablet Take 25 mg by mouth daily. 06/16/20 23 Active cholecalciferol (VITAMIN D3) 2,000 unit capsule Take 1 capsule by mouth every morning. 04/25/20 23 Active clonazePAM (KLONOPIN) 1 MG tablet TAKE 1 TABLET BY MOUTH EVERY DAY AND TAKE 1/2 TABLET AT BEDTIME NEEDED FOR ANXIETY 12/21/19 24 Active FREESTYLE ROD 2 SENSOR kitIndications:Type 2 diabetes mellitus with both eyes affected by mild nonproliferative retinopathy without macular edema, with long-term current use of insulin 1 each by Percutaneous route every 14 (fourteen) days. Use as instructed 6 kit 3 09/10/20 24 Active alcohol PadMIndications:Typ e 2 diabetes mellitus with microalbuminuria, with long-term current use of insulin Use as directed to clean injection site up to 5x/day 500 each 3 09/19/19 25 Active flash glucose sensor (FREESTYLE ROD 2 SENSOR) kitIndications:Type 2 diabetes mellitus with microalbuminuria, with long-term current use of insulin,Type 2 diabetes mellitus with both eyes affected by mild nonproliferative retinopathy without macular edema, with long-term current use of insulin Place 1 each onto the skin every 14 (fourteen) days. 6 kit 3 10/11/19 25 Active dulaglutide (TRULICITY) 4.5 mg/0.5 mL subcutaneous injectionIndication s:Type 2 diabetes mellitus with microalbuminuria, with long-term current use of insulin,Type 2 diabetes mellitus with both eyes affected by mild nonproliferative retinopathy without macular edema, with long-term current use of insulin Inject 0.5 mL (4.5 mg total) under the skin once a week. 6 mL 1 04/01/20 25 Active insulin degludec U-200 (TRESIBA FLEXTOUCH) 200 unit/mL (3 mL) InPn injection penIndications:Type 2 diabetes mellitus with microalbuminuria, with long-term current use of insulin,Type 2 diabetes mellitus with both eyes affected by mild nonproliferative retinopathy without macular edema, with long-term current use of insulin Inject 90 Units under the skin daily. 45 mL 1 04/01/20 25 Active insulin lispro (ADMELOG, HUMALOG) 100 unit/mL injection penIndications:Type 2 diabetes mellitus with microalbuminuria, with long-term current use of insulin 25-30 units 3 times daily with meals 90 mL 1 04/01/20 25 Active lisinopril (PRINIVIL,ZESTRIL) 10 MG tabletIndications:E ssential hypertension Take 1 tablet (10 mg total) by mouth daily. 90 tablet 1 04/01/20 25 Active metFORMIN (GLUCOPHAGE-XR) 500 MG 24 hr tabletIndications:T ype 2 diabetes mellitus with microalbuminuria, with long-term current use of insulin,Type 2 diabetes mellitus with both eyes affected by mild nonproliferative retinopathy without macular edema, with long-term current use of insulin Take 2 tablets (1,000 mg total) by mouth 2 (two) times a day with meals. 360 tablet 1 04/01/20 25 Active blood-glucose,recei dirk,cont (FREESTYLE ROD 3 READER) MiscIndications:Typ e 2 diabetes mellitus with microalbuminuria, with long-term current use of insulin by Miscellaneous route every 15 (fifteen) days. 2 each 05/20/20 25 Active Active Problems Problem Noted Date Diagnosed Date Hyperlipidemia LDL goal <100 05/02/2024 Assessment & Plan (04/01/2025 9:39 AM EDT): Based on last level on control his LDL was 120 he did not repeat the lipid panel prior to this visit we will request again for the follow-up visit. Assessment & Plan (05/02/2024 11:36 AM EDT): Uncontrolled. LDL 120 mg/dL his LDL increased previously he had been fine not on statins. I will repeat a lipid panel fasting again prior to the follow-up visit. Type 2 diabetes mellitus wit h microalbuminuria, with long-term current use of insulin 06/01/2022 Assessment & Plan (07/05/2023 11:04 AM EDT): Improved glycemic control. Hemoglobin A1c 6.5% but based on CGM only 66% in range still has postprandial hyperglycemia. I am increasing the Trulicity to 4.5 mg am hoping that this will help prevent postprandial hyperglycemia at nighttime. That means I have to decrease the Tresiba from 80 to 70 units. If this not effective in terms of improving postprandial hyperglycemia we will have to increase the Humalog at dinner. He should repeat hemoglobin A1c prior to the follow-up visit in 3 months. Essential hypertension 06/01/2022 Assessment & Plan (04/01/2025 9:42 AM EDT): Uncontrolled. He did not take his antihypertensive today since he woke up late and was rushing. I am not going to make any changes. Assessment & Plan (11/19/2024 12:06 PM EDT): Controlled continue lisinopril. Assessment & Plan (05/02/2024 11:33 AM EDT): Controlled. Continue current meds. Assessment & Plan (01/25/2024 11:35 AM EDT): Controlled continue current medications. Assessment & Plan (10/24/2023 12:13 PM EST): Controlled continue current regimen will renew lisinopril. Assessment & Plan (07/05/2023 11:05 AM EDT): Controlled on lisinopril. No changes required. Assessment & Plan (03/25/2023 11:54 AM EDT): Elevated blood pressure likely due to increased weight gain will increase lisinopril to 10 mg he is already at the maximum dose of Norvasc. Assessment & Plan (09/16/2022 11:18 AM EST): Controlled. Continue lisinopril. Assessment & Plan (06/01/2022 10:01 AM EDT): Uncontrolled. He is on Norvasc 10 mg daily medications urine microalbumin is elevated will recommend lisinopril 5 mg. He did not take his blood pressure medication today but NETTIE inhibitor will help with renal protection. Apparently he was on lisinopril in the past cannot recall the dose. Apparently potassium was elevated in the past. We will check basic panel for the follow-up visit. Type 2 diabetes mellitus wit h both eyes affected by mild nonproliferative retinopathy without macular edema, with long-term current use of insulin 11/19/2021 Assessment & Plan (04/01/2025 9:48 AM EDT): Uncontrolled but improved hemoglobin A1c of 8.3%. On the last visit he told me he was not getting his insulin on a regular basis so that is why I did not make any changes to his regimen. He states the dyscontrol was because of lack of insulin. This point he states he still having problems getting 90-day scripts. But lately he has been using all his insulin. He states that the monthly scripts are a problem for him. I been giving him 90-day prescription but he states that her insurance wants me to call them to discuss this. Frankly have never heard of this. But I told him to find the phone number from his insurance company that I should call and I will have to medicals assistance although nurse call to inquire. In any case again I cannot make any changes because he states he has only been using the sensor for 2 days but there is no data I do not see a pattern so it is difficult for me to blindly change the regimen. So again I will give him a follow-up in 3 months. Assessment & Plan (11/19/2024 12:03 PM EDT): Uncontrolled. Hemoglobin A1c increased from 8.2 to 8.7% but he states he is not getting his medications in a timely manner despite me sending 90-day scripts. He states he is only getting 30 days worth of medications. So this is affecting his glycemic control. It is also costing him extra money because he has to pay $20 to get to the pharmacy to leaf size picker his medications. Today I sent prescriptions for 90 days and I did this on the last visit as well so there is no reason why he should not get 90-day scripts unless his pharmacy does not have the medication so his insurance refuses to pay for 90-day scripts. I am not going make any changes to the regimen because the problem as per the patient is that he is not getting his medications and not getting it in time of taking it when he should. Assessment & Plan (08/03/2024 12:30 PM EST): Uncontrolled. Hemoglobin A1c 8.2%. Based on the CGM his glucose level average 227 mg/dL this is consistent with a GMI of 8.7%. Only 20% of the glucose are in target. He does not have hypoglycemia and his glucose levels are elevated above 181 grams per deciliter 80% of the time. I will prescribe Trulicity he will continue with his other medications for diabetes controlled. Assessment & Plan (05/02/2024 11:31 AM EDT): Uncontrolled. Hemoglobin A1c 8.4% based on CGM only 19% in range. He has not been able to obtain Trulicity in over 3 months due to backorder. In the past the same thing happened with Lilli he could not get the medication. I will prescribe Ozempic 1 mg and hopefully his insurance will cover this. Otherwise if he cannot get a GLP-1 agonist on a regular basis then we going to have to attempt different mechanisms for diabetes control. This may include insulin pump if he wants. Possibly addition of people, such as pioglitazone and SGLT2 inhibitors such as Jardiance but adding SGLT2 inhibitors now may cause a lot of glucosuria and the likelihood for genital mycotic infections. Assessment & Plan (01/25/2024 11:34 AM EDT): Uncontrolled. His hemoglobin A1c is 6.7% which is good but only 62% of the glucose are in target. He needs to have at least 70% in target in order to prevent further retinopathy. He was advised that if he is going to eat the fruits he needs to limit the quantity and he needs to bolus insulin because is very high in glucose. I suspect this is possibly why he is gaining weight. Otherwise his regimen will not change. Assessment & Plan (10/24/2023 12:12 PM EST): Fair control hemoglobin A1c 7.0% 72% of the glucose in range but at the same time he is having hypoglycemia 3%. Some changing his Humalog correction scale before he was using set doses so now I am giving him a correction scale starting at 70-100 = 6 units increasing by 2 units every 50 mg/dL. This may be too little insulin but I am concerned regarding hypoglycemia and we can always adjust the correction scale. Patient continue Tresiba at 70 units, metformin, and Trulicity.The patient has current severe hypoglycemia. There is significant concern hypoglycemic seizures which can be potentially fatal. I reemphasized to the patient that the use of insulin is high risk therapy that requires intensive monitoring for toxic effects (hypoglycemia, metabolic decompensation) due to the narrow therapeutic index of the medication and other factors (such as age, acute renal insufficiency, variable appetite and use of steroids) therefore close monitoring of blood sugar with regular review is paramount in the safe use of this medication. Assessment & Plan (03/25/2023 11:51 AM EDT): Uncontrolled. Hemoglobin A1c is 7.2 only 57% of the glucose are in range. He has low glucose overnight and postprandial hyperglycemia in the evening. He will continue Humalog 25 units breakfast and lunch and continue 30 units at dinner. Will decrease Tresiba to 80 units and I will increase the Trulicity to 3.0 mg weekly. He was found to have hyperlipidemia at this time around the LDL increased from 98 to 170 mg/dL this may be due to weight gain. He has not been on a statin and I am not going to prescribe it. I hope that he is able to lose weight the follow-up visit and if so maybe his LDL will improve as well. Assessment & Plan (12/16/2022 10:56 AM EDT): According to the hemoglobin A1c today is 6.2% he appears to be controlled but the GMI CGM shows that he is having only 61% of the glucose in target and this needs to be 70% or more and at least 38% of the glucose levels are elevated this is after 5 PM to 1 AM. But he states that he develops hypoglycemia rarely in the stone planer. So I am decreasing the Tresiba from 95 to 90 units. But I asked him to do Humalog 30 units at dinnertime because he needs more prandial insulin in the evening. Ideally I would like to increase the Trulicity to 3.0 mg ointment 4.5 mg but this medication is still on backorder we will have to continue using Trulicity 1.5 mg weekly. Assessment & Plan (09/16/2022 11:15 AM EST): Uncontrolled. He has lost more weight with the use of Trulicity at a higher dose but his hemoglobin A1c increased. Based on his glycemic levels on the CGM with an average of 217 mg/dL he is going to need another agent. We could potentially increase the Trulicity to 4.5 mg weekly I doubt that this is going to work furthermore the medication Trulicity is on backorder. I have given him a sample of Mounjaro 2.5 mg that he should start. Sample lot number [id number], expiration 03/02/2024. He will administer 1 dose per week. By the end of the month he should start on the 5 mg used to this weekly for 1 month and continue increasing by 2.5 mg every 4 weeks. He should return for follow-up in 3 months time and he should repeat lab work prior to the follow-up visit. Assessment & Plan (06/01/2022 10:04 AM EDT): Uncontrolled. Hemoglobin A1c is 7.2%. Will increase Trulicity to 3 mg weekly continue other medications as significant in the HPI. Follow-up in 3 months and repeat hemoglobin A1c prior to the follow-up visit. Advised the patient to try to bring his accounts receivable manager with him on the follow-up visit. Assessment & Plan (11/19/2021 11:21 AM EST): Uncontrolled hemoglobin A1c 8.9%. He is very insulin resistant on high doses of Lantus and Humalog and is also on Metformin maximum dose. Insulin works well but it also causes weight gain so instead of increasing the insulin I am going to prescribe Ozempic which is a GLP-1 agonist. This medication has full mechanism of action he can decrease appetite because it accessed and neurotransmitter on the hypothalamus to suppress appetite. It decreases gastric emptying so the patient needs labs. It stimulates insulin secretion in a glucose dependent manner so anytime the patient needs the insulin will be stimulated and it decreases hepatic gluconeogenesis or sugar production in the liver. It can be associated with nausea, vomiting, diarrhea, constipation. We want onto the patient starts the medication but we will start with the smallest dose to admit adverse effects. He will start out with 0.25 mg for 4 weeks and then start 0.5 mg for 4 weeks before using 1 mg weekly. He has no contraindications to the medication such as pancreatitis or medullary thyroid carcinoma. He would do lab work prior to the follow-up visit and return in 3 months. The patient was trained on using Ozempic. He successfully administered the first dose in the office. Encounters Date Type Department Care Team Description 05/20/2025 [place] Only [facility] [place] [address] [place] [address] [place] [id number] Kvng Rivera DO Type 2 diabetes mellitus with microalbuminuria, with long-term current use of insulin (Primary Dx) 04/01/2025 9:30 AM EDT Office Visit [facility] [place] [address] [place] [address] [place] [id number] Kvng Rivera DO Type 2 diabetes mellitus with microalbuminuria, with long-term current use of insulin (Primary Dx); Type 2 diabetes mellitus with both eyes affected by mild nonproliferative retinopathy without macular edema, with long-term current use of insulin; Essential hypertension; Hyperlipidemia LDL goal <100 03/07/2025 Telephone [facility] [address] [place] [id number] Kvng Rivera DO Same day can from Last 3 Months Family History Medical History Relation Comments No Known Problems Father No Known Problems Maternal Grandfather Diabetes Maternal Grandmother Hypertension Maternal Grandmother Thyroid disease Maternal Grandmother Heart disease Mother No Known Problems Paternal Grandfather No Known Problems Paternal Grandmother Relation Status Comments Father Other Maternal Grandfather Alive Maternal Grandmother Alive Mother Paternal Grandfather Other Paternal Grandmother Other Social History Tobacco Use Types Packs/Day Years Used Date Smoking Tobacco: Never Smokeless Tobacco: Never Tobacco Cessation:Counseling Given: Not Answered Alcohol Use Standard Drinks/Week Comments Not Currently 0 (1 standard drink = 0.6 oz pur e alcohol) Education Answer Date Recorded Are you interested in more education? Not on preeti e 01/08/2023 Are you concerned about learning? Not on file 01/08/2023 No 01/08/2023 No 01/08/2023 Digital Access Answer Date Recorded No 02/05/2023 No 02/05/2023 Reliable internet access at home? Not on file 02/05/2023 Device with a working camera? Not on file Sex and Gender Information Value Date Recorded Sex Assigned at Male 04/02/2024 5:02 PM EDT Legal Sex Male 11:30 AM EDT Gender Identity Not on file Sexual Orientation Straight 04/02/2024 5: 02 PM EDT Last Filed Vital Signs Vital Sign Reading Time Taken Comments Blood Pressure 148/100 04/01/2025 9:08 AM EDT Pulse 114 04/01/2025 9:08 AM EDT Temperature 36.6 C (97.8 F) 04/01/2025 9:08 AM EDT Respiratory Rate - - Oxygen Saturation 98% 04/01/2025 9:08 AM EDT Inhaled Oxygen Concentration - - Weight 139.5 kg (307 lb 9.6 oz) 04/01/2025 9:08 AM EDT Height 186.9 cm (6' 1.58 ) 04/01/2025 9:08 AM ED T Body Mass Index 39.94 04/01/2025 9:08 AM EDT Plan of Treatment Upcoming Encounters Date Type Department Care Team (Late st Contact Info) Description 07/12/2025 12:10 PM EDT Office Visit [facility] [address] [place] [id number] Kvng Rivera DO [address] [place] [phone] [email or web address] Health Maintenance Due Date Last Done Comments DEPRESSION SCREENING 1999 HEPATITIS C SCREENING 2005 HIV ONE-TIME SCREENING (18-65 YEARS) 2005 PNEUMOCOCCAL VACCINES (0-49 years) (1 of 2 - PCV) 2006 DIABETIC EYE EXAM 11/19/2021 Adult Td,Tdap Booster 01/23/2025 01/23/2015 INFLUENZA VACCINE (#1) 2025 CREATININE LEVEL 04/25/2025 04/25/2024, 07/2023, 02/10/2022 LIPID PANEL 04/25/2025 04/25/2024, 02/0 05/2024, 03/22/2023, Additional history exists POTASSIUM LEVEL 04/25/2025 04/25/2024, 0709/2022, 02/10/2022 COVID-19 VACCINE ( season) 2025 HEMOGLOBIN A1C 07/02/2025 04/01/2025, 11/10, 08/03/2024, Additional history exists BLOOD PRESSURE 10/02/2025 04/01/2025 SMOKING STATUS SCREENING (Once After 26 Yrs) Completed 08/03/2024 HEPATITIS A VACCINES Aged Out No long er eligible based on patient's age to complete this topic HIB VACCINES Aged Out No longer eligi ble based on patient's age to complete this topic MENINGOCOCCAL VACCINES (ACWY) Aged Out No longer eligible based on patient's age to complete this topic MENINGOCOCCAL VACCINES (B) Aged Out N o longer eligible based on patient's age to complete this topic Medical Devices Not on file Procedures Procedure Name Priority Date/Time Associated Diagnosis Comments POCT HEMOGLOBIN A1C Routine 04/01/2025 1 0:11 AM EDT Type 2 diabetes mellitus with microalbuminuria, with long-term current use of insulin Type 2 diabetes mellitus with both eyes affected by mild nonproliferative retinopathy without macular edema, with long-term current use of insulin LIPID PANEL Routine 04/25/2024 11:13 AM EDT Type 2 diabetes mellitus with microalbuminuria, with long-term current use of insulin Type 2 diabetes mellitus with both eyes affected by mild nonproliferative retinopathy without macular edema, with long-term current use of insulin COMPREHENSIVE METABOLIC PANEL Routine 04/25/2024 11:13 AM EDT Type 2 diabetes mellitus with microalbuminuria, with long-term current use of insulin Type 2 diabetes mellitus with both eyes affected by mild nonproliferative retinopathy without macular edema, with long-term current use of insulin from Last 3 Months or Most Recently Relevant to Health Maintenance Results * (ABNORMAL) POCT Hemoglobin A1c (04/01/2025 10:11 AM EDT) Hemoglobin A1c 8.3(A) 4.2 - 5.6 % Other 04/01/2025 10:1 1 AM EDT Kvng Rivera DO POINT OF CARE TEST ORDERABLES Fi nal Result * (ABNORMAL) Comprehensive metabolic panel (04/25/2024 11:13 AM EDT) SODIUM 142 133 - 146 mmol/L [facility] POTASSIUM 4.0 3.3 - 5.1 mmol/L [facility] CHLORIDE 106 96 - 108 mmol/L [facility] CO2 21 21 - 35 mmol/L [facility] BUN 9 6 - 19 mg/dL [facility] CREATININE 0.70 0.5 - 1.5 mg/dL [facility] GLUCOSE 163(H) 70 - 99 mg/dL [facility] ALBUMIN 4.4 3.9 - 4.8 g/dL [facility] TOTAL PROTEIN 7.9 6.5 - 8.0 g/dL [facility] CALCIUM 9.2 8.4 - 10.3 mg/dL [facility] ALKALINE PHOSPHATASE 67 39 - 117 U/L [facility] TOTAL BILIRUBIN 0.4 0.0 - 1.2 mg/dL [facility] AST 21 0 - 37 U/L [facility] ALT 27 0 - 40 U/L [facility] GLOBULIN 3.5 1 - 4.8 g/dL [facility] EGFR >120 >59 mL/min/1.7 3m2 [facility] Comment:Estimated glomerular filtration rate calculated using the CKD-EPI refit equation. ANION GAP 19 10 - 20 mmol/L [facility] Blood 04/25/2024 11:1 3 AM EDT 04/25/2024 11:20 AM EDT Kvng Rivera DO LAB BLOOD ORDERABLES Final Resul t [facility] [address] [place] [address] * Lipid panel (04/25/2024 11:13 AM EDT) HDL 46 mg/dL [facility] Comment: Interpretation <40 mg/dL: Low HDL cholesterol (major risk factor for CHD) Greater than or equal to 60 mg/dL: High HDL cholesterol ( negative risk factor for CHD) HDL - cholesterol is affected by a number of factors, e.g. smoking, excerise, hormones, sex and age. CHOLESTEROL 193 0 - 240 mg/dL [facility] TRIGLYCERIDES 136 30 - 160 mg/dL [facility] LDL 120 50 - 129 mg/dL [facility] Comment: LDL levels in terms of risk for coronary heart disease: <100 mg/dL: Optimal 100-129 mg/dL: Near or above optimal 130-159 mg/dL: Borderline high 160-189 mg/dL: High >190 mg/dL: Very High CARDIAC RISK RATIO 4.2 3.4 - 5.0 [facility] Blood 04/25/2024 11:1 3 AM EDT 04/25/2024 11:20 AM EDT Kvng Rivera DO LAB BLOOD ORDERABLES Final Resul t [facility] [address] [place], [place] [id number] from Last 3 Months or Most Recently Relevant to Health Maintenance [place] [address] [place] [address] [employer] [facility] [place] [address] [place] [address] [place] [address] [place] [address] [facility] [facility] [place] [address] [place] [address] [facility] Care Teams Customer Service Sales Associate Relationship Specialty Start Date End Date Alexys Ellis MD [address] [place] [address] [place] [address] PCP - General Internal Medicine 07/13/21 Additional Source Comments The information contained in this document represents components of the legal health record. It is not the complete legal health record.[facility]
== END 2025-06-05 10:49 | disposition home or self-care (01) ==
LOC: HO.HMCH 09:46
PROVIDERS: PCP Internal Medicine; Visit Provider Internal Medicine
DX: E11.65 Type 2 diabetes mellitus with hyperglycemia (principal); Z79.4 Long term (current) use of insulin; E66.01 Morbid (severe) obesity due to excess calories; Z68.41 Body mass index [BMI] 40.0-44.9, adult; F31.60 Bipolar disorder, current episode mixed, unspecified; I10 Essential (primary) hypertension; E78.2 Mixed hyperlipidemia; G47.00 Insomnia, unspecified; F41.9 Anxiety disorder, unspecified

== ENCOUNTER → 2025-06-05 09:45 | Outpatient (BNVA) | payer OTHER, SELFPAY | PROVIDERS: PCP Internal Medicine; Visit Provider Internal Medicine | DX: E11.65 Type 2 diabetes mellitus with hyperglycemia (principal); I10 Essential (primary) hypertension; E78.2 Mixed hyperlipidemia; G47.00 Insomnia, unspecified; F41.9 Anxiety disorder, unspecified; F31.60 Bipolar disorder, current episode mixed, unspecified; E66.01 Morbid (severe) obesity due to excess calories; Z68.41 Body mass index [BMI] 40.0-44.9, adult; Z79.4 Long term (current) use of insulin; Z79.899 Other long term (current) drug therapy; Z13.31 Encounter for screening for depression | CPT/HCPCS: 83036; 96127; 99212 ==